=== PATIENT | male | born 1955 | race Caucasian/White ===

== ENCOUNTER 2017-08-03 22:42 | Emergency (ER) | payer BC ==
[~2017-08-03] VITALS: Ht 180.3 cm; Wt 78.0 kg
[~2017-08-03 22:42] MED LIST: CLC100X PO; OXYC1TAB3 PO
[2017-08-03 22:48] VITALS: Ht 180.3 cm; Wt 78.0 kg
[2017-08-03] MEDS ORDERED: SODIUM CHLORIDE 0.9% 1000ML 1,000 ML IV STA (23:03)
[2017-08-03] MEDS ORDERED: ONDANSETRON INJ 2 MG/ML 2 ML VIAL IV STA (23:03)
[2017-08-03 23:29] LABS: BASO % 0.4 %; BASO ABS # 0.02 K/uL (0-0.2); HEMATOCRIT 45.6 % (42-52); HEMOGLOBIN 16.4 g/dL (14.0-18.0); IG# 0.01 K/uL (0.00-0.02); MEAN CELL VOLUME 85.6 fL (80-100); MEAN CORPUSCULAR HEMOGLOBIN 30.8 pg (25-34); MEAN PLATELET VOLUME 9.5 fL (7.4-10.4); MONO % 12.4 %; MONO ABS # 0.65 K/uL (0.11-0.59); NEUT ABS # 3.47 K/uL (1.4-6.5); PLATELET COUNT 113 K/uL (130-400); RED CELL DISTRIBUTION WIDTH CV 13.4 % (11.5-14.5); RED CELL DISTRIBUTION WIDTH SD 41.9 fL (36.4-46.3); WHITE BLOOD COUNT 5.25 K/uL (4.8-10.8)
[2017-08-03 23:38] VITALS: O2SAT 93
[2017-08-03 23:47] LABS: ALBUMIN 3.6 gm/dl (3.4-5.0); CALCIUM 8.2 mg/dl (8.5-10.1); CREATININE 0.93 mg/dl (0.60-1.40); POTASSIUM 3.5 mmol/L (3.5-5.1)
[2017-08-03 23:58] LABS: TOTAL PROTEIN 7.5 gm/dl (6.4-8.2)
[2017-08-04 00:21] LABS: INFLUENZA B ANTIGEN Neg for Influ B (NEG)
--- NOTE | 2017-08-04 00:51 | EMERGENCY ROOM VISIT NOTE ---
History Report prepared by Amber: Leon Correia Under the Supervision of: Dr. Aquiles Valdovinos M.D. First contact with patient: 22:55 Chief Complaint: GI ASSESSMENT Stated Complaint: HEAD COLD, COUGH, VOMITING Nursing Triage Summary: pt c/o sinus congestion and drainage since Wednesday. also since Wednesday not able to keep anything down. pt reports he has watery black diarrhea. pt states "I'v had black diarrhea for 3 years, i have internal bleeding from somewhere". pt pulled down his pants to show RN a stool stain in his underwear, states 'this is nothing compared to how it was on Wednesday". requested pt to provide stool sample and pt states "that's not going to happen, i already went earlier today". pt also states he has not had anything to eat since Wednesday because "I can't keep it down and I don't want to try". History of Present Illness The patient is a 62 year old male who presents to the Emergency Room with complaints of worsening chest congestion beginning five days ago. The patient states he has also been experiencing a cough and nausea. He reports he cannot eat or drink anything because it causes his stomach to "growl", and he has not eaten anything in 6 days. The patient notes he has had diarrhea and black stool for a few years, and he has not had a scope performed. He was prescribed but stopped his acid reducing medication for his stomach. He did state he came to the ED tonight because he is tired of soiling his pants daily, and he did not know if the congestion and cough were related to his diarrhea and black stools. The patient reports he has tried Pepto Bismol for the past few weeks, and it has not helped. He notes a history of two hernias in his stomach. The patient states he was evaluated by [facility] in the past for similar issues and was prescribed the acid reducing medication. Pt denies LOC, headache, fevers, chills, diaphoresis, visual changes, neck pain, back pain, hematochezia, urinary symptoms, numbness, weakness, lymphadenopathy, rash, or other complaints. Source of History: patient Onset: five days ago Position: chest Quality: other (congestion) Timing: worsening Associated Symptoms: + cough, + nausea, + diarrhea Note: Associated symptoms: black stool, stomach "growling" when he eats or drinks Review of Systems See HPI for pertinent positives and negatives. A total of ten systems were reviewed and were otherwise negative. Past Medical & Surgical Surgical Problems: (1) S/P hernia repair Family History Patient reports no known family medical history. Social History Smoking Status: Current Every Day Smoker Alcohol Use: none Drug Use: none Occupation Status: employed Current/Historical Medications Scheduled Omeprazole (Prilosec), 40 MG PO DAILY Ondasetron Odt (Zofran Odt), 4 MG SL Q6H Allergies Coded Allergies: Codeine (Verified Allergy, Mild, RASH, 08/04/17) Itching. Penicillins (Verified Allergy, Unknown, UNKNOWN, 08/04/17) Physical Exam Vital Signs Date Time Temp Pulse Resp B/P (MAP) Pulse Ox O2 Delivery O2 Flow Rate FiO2 08/04/17 01:30 36.8 95 19 102/68 94 08/03/17 23:51 97 20 117/76 93 Room Air 08/03/17 23:41 109 08/03/17 23:38 93 Room Air 08/03/17 22:48 37.6 114 20 139/72 93 Room Air Physical Exam GENERAL: Awake, alert, well-appearing, in no distress HENT: Normocephalic, atraumatic. Oropharynx unremarkable. EYES: Normal conjunctiva. Sclera non-icteric. NECK: Supple. No nuchal rigidity. FROM. No masses. RESPIRATORY: Clear to auscultation. No wheezes. No rales. Normal respiratory effort. CARDIAC: Tachycardic rate. Normal rhythm. No murmurs. No rubs. Extremities warm and well perfused. Pulses equal. No JVD. GI: Soft, non-distended. No tenderness to palpation. No rebound or guarding. No masses. RECTAL: Deferred. MUSCULOSKELETAL: Atraumatic. Chest examination reveals no tenderness. The back is symmetrical on inspection without obvious abnormality. There is no CVA tenderness to palpation. No joint edema. LOWER EXTREMITIES: Calves are equal size bilaterally and non-tender. No edema. No discoloration. NEURO: Normal sensorium. No sensory or motor deficits noted. SKIN: No rash or jaundice noted. Medical Decision & Procedures ER Provider Diagnostic Interpretation: X-ray: Per my interpretation: Chest x-ray. Findings: A chest x-ray was performed and revealed no pneumothorax , effusion, infiltrate, pulmonary edema, free air under the diaphragm, or wide mediastinum. Laboratory Results 08/03/17 23:19 Red Blood Count 5.33, Mean Corpuscular Volume 85.6, Mean Corpuscular Hemoglobin 30.8, Mean Corpuscular Hemoglobin Concent 36.0, Mean Platelet Volume 9.5, Neutrophils (%) (Auto) 66.0, Lymphocytes (%) (Auto) 21.0, Monocytes (%) (Auto) 12.4, Eosinophils (%) (Auto) 0.0, Basophils (%) (Auto) 0.4, Neutrophils # (Auto ) 3.47, Lymphocytes # (Auto) 1.10, Monocytes # (Auto) 0.65, Eosinophils # (Auto ) 0.00, Basophils # (Auto) 0.02 08/03/17 23:19 Test 08/03/17 23:19 08/03/17 23:44 08/04/17 00:35 White Blood Count 5.25 K/uL (4.8-10.8) Red Blood Count 5.33 M/uL (4.7-6.1) Hemoglobin 16.4 g/dL (14.0-18.0) Hematocrit 45.6 % (42-52) Mean Corpuscular Volume 85.6 fL (80-100) Mean Corpuscular Hemoglobin 30.8 pg (25-34) Mean Corpuscular Hemoglobin Concent 36.0 g/dl (32-36) Platelet Count 113 K/uL (130-400) Mean Platelet Volume 9.5 fL (7.4-10.4) Neutrophils (%) (Auto) 66.0 % Lymphocytes (%) (Auto) 21.0 % Monocytes (%) (Auto) 12.4 % Eosinophils (%) (Auto) 0.0 % Basophils (%) (Auto) 0.4 % Neutrophils # (Auto) 3.47 K/uL (1.4-6.5) Lymphocytes # (Auto) 1.10 K/uL (1.2-3.4) Monocytes # (Auto) 0.65 K/uL (0.11-0.59) Eosinophils # (Auto) 0.00 K/uL (0-0.5) Basophils # (Auto) 0.02 K/uL (0-0.2) RDW Standard Deviation 41.9 fL (36.4-46.3) RDW Coefficient of Variation 13.4 % (11.5-14.5) Immature Granulocyte % (Auto) 0.2 % Immature Granulocyte # (Auto) 0.01 K/uL (0.00-0.02) Anion Gap 8.0 mmol/L (3-11) Est Creatinine Clear Calc Drug Dose 89.9 ml/min Estimated GFR () 103.1 Estimated GFR (Non- 88.9 BUN/Creatinine Ratio 16.3 (10-20) Calcium Level 8.2 mg/dl (8.5-10.1) Magnesium Level 2.1 mg/dl (1.8-2.4) Total Bilirubin 0.3 mg/dl (0.2-1) Direct Bilirubin 0.1 mg/dl (0-0.2) Aspartate Amino Transf (AST/SGOT) 36 U/L (15-37) Alanine Aminotransferase (ALT/SGPT) 32 U/L (12-78) Alkaline Phosphatase 71 U/L (45-117) Total Protein 7.5 gm/dl (6.4-8.2) Albumin 3.6 gm/dl (3.4-5.0) Lipase 221 U/L (73-393) Thyroid Stimulating Hormone (TSH) 1.820 uIu/ml (0.300-4.500) Influenza Type A Antigen Neg for Influ A (NEG) Influenza Type B Antigen Neg for Influ B (NEG) Urine Color DK YELLOW Urine Appearance CLEAR (CLEAR) Urine pH 5.0 (4.5-7.5) Urine Specific [place] 1.020 (1.000-1.030) Urine Protein NEG (NEG) Urine Glucose (UA) NEG (NEG) Urine Ketones 1+ (NEG) Urine Occult Blood NEG (NEG) Urine Nitrite NEG (NEG) Urine Bilirubin NEG (NEG) Urine Urobilinogen NEG (NEG) Urine Leukocyte Esterase NEG (NEG) Laboratory results reviewed by me Medications Administered Medications (Trade) Dose Ordered Sig/Kong Route Start Time Stop Time Status Last Admin Dose Admin Sodium Chloride 1,000 ml @ 999 mls/hr Q1H1M STAT IV 08/03/17 23:03 08/04/17 00:03 DC 08/03/17 23:46 999 MLS/HR Ondansetron HCl (Zofran Inj) 4 mg NOW STAT IV 4/17/18 23:03 08/03/17 23:05 DC 08/03/17 23:44 4 MG Ondansetron HCl (ZOFRAN ODT 4MG Home Pack) 1 homepack UD ONCE PO 08/04/17 01:15 08/04/17 01:16 DC 08/04/17 01:27 1 HOMEPACK Pantoprazole Sodium (Protonix Tab) 40 mg NOW STAT PO 08/04/17 01:07 08/04/17 01:09 DC 08/04/17 01:26 40 MG ECG Per My Interpretation Indication: abdominal pain Rate (beats per minute): 104 Rhythm: sinus tachycardia Findings: RBBB (incomplete), no acute ischemic change, no ectopy ED Course 2301: The patient was evaluated in room B06. A complete history and physical exam was performed. 2303: Ordered Ondansetron HCl 4mg IV, Sodium Chloride 1000 ml @ 999 mls/hr IV 0107: Ordered Protonix Tab 40mg PO 0109: I reevaluated the patient. Discussed results and discharge instructions: he verbalized understanding and agreement. The patient is ready for discharge when he receives his medication. 0115: Ordered Ondansetron 1 homepack PO Medical Decision Triage Nursing notes reviewed and agree them. The patient's history was concerning for nausea, vomiting, diarrhea, and abdominal pain. Differential diagnosis: Etiologies such as gastroenteritis, food borne illness, infections, appendicitis , diverticulitis, inflammatory bowel disease, GI bleed, biliary pathology, influenza as well as others were entertained. Physical examination findings: As above. Benign abdomen. Mild tachycardia. ER treatment provided: IV hydration 1 l NSS. IV Zofran On reassessment the patient felt better. Patient was tolerating p.o. intake. Diagnostics interpretation by me: ECG: Normal except for mild tachycardic rate. The labs revealed an unremarkable CBC and chemistry panel. The patient has a normal hemoglobin. No leukocytosis. LFTs and lipase negative. Influenza testing negative. Imaging studies: Chest x-ray as above. The patient has not been following up with the primary care physician. He has seen [facility] in the past but not recently. He was prescribed medication but states he is not taking it. He is hemodynamically stable. He was hydrated and is doing well. He has no abdominal tenderness. He was unable to provide a stool specimen. He notes his symptoms have been going on for 3 years. The patient does not have any abnormalities on his chest x-ray. I discussed symptomatic treatment and reinitiating his acid reducing medication. I would start him on Prilosec. He will use Zofran as needed. The patient was very concerned about having a work note so that he could schedule his follow-up appointments. He was provided with 1. He will contact the [facility] for GI as well as primary care follow-up. If he worsens in any way he will come back to the emergency department for further evaluation. CT imaging was felt to be unnecessary at this time. By the evaluation outlined above other emergent etiologies such as those listed in the differential, as well as others, were deemed relatively unlikely. The patient was educated about the findings as listed above. All questions were answered and the patient was pleased with the treatment. Return instructions were outlined and the patient was discharged in stable condition. Medication Reconcilliation Current Medication List: was personally reviewed by me Blood Pressure Screening Patient's blood pressure: Normal blood pressure Blood pressure disposition: Did not require urgent referral Impression Primary Impression: Diarrhea Additional Impressions: Nausea and vomiting Cough Scribe Attestation The scribe's documentation has been prepared under my direction and personally reviewed by me in its entirety. I confirm that the note above accurately reflects all work, treatment, procedures, and medical decision making performed by me. Departure Information Dispostion Home / Self-Care Prescriptions Omeprazole (PRILOSEC) 40 Mg Cap 40 MG PO DAILY, #30 CAP Prov: Aquiles Valdovinos MD 08/04/17 Ondasetron Odt (ZOFRAN ODT) 4 Mg Tab 4 MG SL Q6H for Nausea, #8 TAB Prov: Aquiles Valdovinos MD 08/04/17 Referrals Jennifer Candelaria, DO Forms HOME CARE DOCUMENTATION FORM, IMPORTANT VISIT INFORMATION Patient Instructions My [facility] Additional Instructions Prilosec 40 mg daily until directed otherwise by gastroenterology. Zofran(odansetron) tablets 4mg: Take one and allow it to dissolve in your mouth every four to six hours as needed for nausea or vomiting. Imodium: This is available [id number]. Start out with two pills then take one after each loose bowel movement. You can take a maximum of 8 in one day. Only used as needed. Stop if you have bloody stools. Acetaminophen(Tylenol) may be used for fever or pain. Use 1000mg every six hours as needed. Avoid using more than 4000mg in a 24 hour period. Rest and drink plenty of fluids as tolerated. Slow sips of water or sports drinks are recommended instead of large amounts all at once. Continue current medications. Once your stomach is settled start with a clear liquid diet (jello, soup broth, etc.) and then advance as tolerated. You should avoid full, heavy meals for about 24 hrs from the time your symptoms resolved. Return to the ER for persistent vomiting, fevers, abdominal pain, chest pains, difficulty breathing, black or bloody stools, worsening of your condition, or as needed. Follow-up with [facility] gastroenterology for a recheck. Call the office tomorrow. The number is listed below under Dr. Candelaria. Call the [facility] at [phone] to arrange for a family doctor follow up tell them you were in the ER and we referred you. Problem Qualifiers
[2017-08-04] MEDS ORDERED: PANTOprazole SOD 40 MG TAB PO STA (01:07)
[2017-08-04] MEDS ORDERED: OMEP40CA41 PO (01:12)
[2017-08-04] MEDS ORDERED: ONDA4TAB10 SL (01:12)
[2017-08-04] MEDS ORDERED: ONDANSETRON HOME PACK 4MG OD TAB PO ONE (01:15)
[2017-08-04 01:30] VITALS: BP 102/68; PULSE 95; TEMP 36.8; O2SAT 94
--- NOTE | 2017-08-04 07:01 | DIAGNOSTIC IMAGING REPORT ---
CHEST ONE VIEW PORTABLE CLINICAL HISTORY: EVALUATE WEAKNESS mental status change COMPARISON STUDY: 12/02/2012 FINDINGS: The bones soft tissues and hemidiaphragms are normal. The cardiomediastinal silhouette is normal. The lungs are clear. The pulmonary vasculature is normal. IMPRESSION: Negative chest. The above report was generated using voice recognition software. It may contain grammatical, syntax or spelling errors. Electronically signed by: Bradley Cardenas M.D. 08/04/2017 7:00 AM Dictated Date/Time: 08/04/2017 6:59 AM
== END 2017-08-04 01:32 | disposition home or self-care (01) ==
LOC: C.EDB 22:44
DX: R19.7 Diarrhea, unspecified (principal); R11.2 Nausea with vomiting, unspecified; R05 Cough; R00.0 Tachycardia, unspecified; F17.200 Nicotine dependence, unspecified, uncomplicated; Z88.6 Allergy status to analgesic agent; Z88.0 Allergy status to penicillin

== ENCOUNTER 2024-07-26 10:15 | Inpatient (IN) ==
[2024-07-26] MEDS: SODIUM CHLORIDE 0.9% 1,000 ML IV SCH ×2 (10:20→16:11)
[2024-07-26] MEDS: ADENOSINE IV SOLN 3 MG/ML 2 ML VIAL IV STA ×2 (10:25→10:27)
[2024-07-26] MEDS: dilTIAZem HCl 5 MG/ML 5 ML VIAL IV STA ×2 (10:31→12:48)
--- NOTE | 2024-07-26 10:49 | Procedure Note ---
Procedure Note Date of Service July 26, 2024 Coding
--- NOTE | 2024-07-26 10:52 | Emergency Department Note ---
History of Present Illness General Chief complaint: Tachycardia Stated complaint: SVT, TACHYPNEA Time Seen by Provider: 07/26/24 10:17 Source: patient and EMS Mode of arrival: EMS Limitations: altered mental status History of Present Illness Patient is a 69-year-old male with stage IV lung cancer who presents for worsening shortness of breath and tachycardia. Per EMS patient was in SVT with heart rate in the 200s and respiratory rate in the 40s. Recently diagnosed with pneumonia 10 days ago. He has not been eating or drinking well for the last 10 days. First took his antibiotic yesterday. Last chemotherapy session was 6 days prior. History is limited from patient due to acute distress. Home Medications Medication Instructions Recorded Confirmed Type naproxen 500 mg tablet 500 mg PO BID PRN pain #14 tabs 05/26/24 07/26/24 Rx albuterol sulfate 90 mcg/actuation 2 puff inhalation Q4H PRN Wheezing 07/03/24 07/26/24 History aerosol inhaler fluticasone 250 mcg-salmeterol 50 1 inh inhalation BID 07/03/24 07/26/24 History mcg/dose blistr powdr for inhalation dexamethasone 4 mg tablet 4 mg PO .as directed 07/11/24 07/26/24 History folic acid 1 mg tablet 1 mg PO DAILY 07/11/24 07/26/24 History lorazepam 0.5 mg tablet 0.5 mg PO Q8H PRN Anxiety 07/11/24 07/26/24 History morphine 15 mg immediate release 15 mg PO BID PRN Pain 07/11/24 07/26/24 History tablet ondansetron HCl 8 mg tablet 8 mg PO Q8H PRN NAUSEA/VOMITING 07/11/24 07/26/24 History oxycodone 5 mg tablet 5 mg PO Q4H PRN Severe Pain (Scale 07/11/24 07/26/24 History Score 7-10) prochlorperazine maleate 10 mg 10 mg PO Q6H PRN NAUSEA/VOMITING 07/11/24 07/26/24 History tablet (Compazine) cefdinir 300 mg capsule 300 mg PO BID 10 days #20 caps 07/18/24 07/26/24 Rx fluconazole 100 mg tablet 100 mg PO QAM 07/25/24 07/26/24 History Allergies Allergy/AdvReac Type Severity Reaction Status Date / Time codeine Allergy Mild Itching Verified 07/25/24 02:01 doxycycline AdvReac Intermediate NAUSEA/VOMI Verified 07/25/24 01:56 TING Past Med/Surg History Problem List (Updated 07/26/24 @ 13:35 by Marco Antonio Ladd MD) Supraventricular tachycardia (Acute) Generalized weakness (Acute) Chemotherapy-induced nausea (Acute) Oral thrush (Acute) Pneumonia (Acute) Malignant neoplasm of right lung stage 4 (Chronic 06/22/24) Medical History Femur fracture, left In past Benign neoplasm of colon Arthritis COPD (chronic obstructive pulmonary disease) Anxiety Lung cancer, primary, with metastasis from lung to other site Lung cancer Chronic back pain Surgical History History of surgery Both lower legs; H/O inguinal hernia repair H/O colonoscopy S/P bronchoscopy with biopsy EBUS on 06/22/24 Family History Father , 95yo Pacemaker Hypertension Diabetes Colorectal cancer Mother , 58yo Lung cancer Brother Medical history unknown Sister Cancer Pt uncertain of type Sister Cancer Pt uncertain of type of cancer Sister Cancer Pt uncertain of type of cancer Sister Drowning Social History Smoking Status: Former smoker Tobacco Type: Cigarettes Cigarettes Per Day: 1 PPD x 53 yrs; Second Hand Exposure: No; Do You Dip or Chew Tobacco: No; Hx Alcohol Use: No Hx Substance Use: Yes (Did smoke it daily but not in past year) Prescribed Medications: Marijuana Preferred Language: Thai Communication Ability: Effective Beliefs That Will Affect Care: None marital status: Single Current Living Situation: Alone current occupational status: 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 Physical Exam Vital Signs Vital Signs - 24 hr 07/26/24 10:17 07/26/24 10:17 07/26/24 10:24 Temperature 36.6 C Temperature Source Oral Pulse Rate 203 H Pulse Rate [Right Finger] 204 H Pulse Rate from SpO2 Sensor Respiratory Rate 40 H Respiratory Effort / Characteristics Accessory Muscle Use Labored Short of Breath Accessory Muscle Use Labored Short of Breath Respiratory Depth Shallow Respiratory Pattern Tachypnea Tachypnea Blood Pressure Blood Pressure [Right Arm] 102/85 Blood Pressure Mean Blood Pressure Mean [Right Arm] 90 Pulse Oximetry 94 Oxygen Delivery Method Room Air Room Air Oxygen Flow Rate Sepsis Recent Fever Within 48 Hours Sepsis New/Unexplained Change in Mental Status Sepsis Action Taken by Nursing 07/26/24 10:27 07/26/24 10:37 07/26/24 10:37 Temperature Temperature Source Pulse Rate 0 L Pulse Rate [Right Finger] 190 H Pulse Rate from SpO2 Sensor 141 H Respiratory Rate 38 H 30 H Respiratory Effort / Characteristics Respiratory Depth Respiratory Pattern Blood Pressure 113/87 Blood Pressure [Right Arm] 113/92 Blood Pressure Mean 95 Blood Pressure Mean [Right Arm] 99 Pulse Oximetry 78 L 90 Oxygen Delivery Method Room Air Oxygen Flow Rate Sepsis Recent Fever Within 48 Hours No Sepsis New/Unexplained Change in Mental Status No Sepsis Action Taken by Nursing No Action Required 07/26/24 10:42 07/26/24 10:43 07/26/24 10:45 Temperature Temperature Source Pulse Rate 125 H 126 H Pulse Rate [Right Finger] 123 H Pulse Rate from SpO2 Sensor 208 H Respiratory Rate 30 H 30 H Respiratory Effort / Characteristics Respiratory Depth Respiratory Pattern Blood Pressure 116/91 Blood Pressure [Right Arm] 105/69 Blood Pressure Mean 99 Blood Pressure Mean [Right Arm] 81 Pulse Oximetry 97 Oxygen Delivery Method Oxymask Oxygen Flow Rate 3 Sepsis Recent Fever Within 48 Hours Sepsis New/Unexplained Change in Mental Status Sepsis Action Taken by Nursing 07/26/24 10:51 07/26/24 10:54 07/26/24 11:00 Temperature Temperature Source Pulse Rate 124 H 124 H Pulse Rate [Right Finger] 129 H Pulse Rate from SpO2 Sensor 116 H 122 H Respiratory Rate 32 H 34 H 32 H Respiratory Effort / Characteristics Respiratory Depth Respiratory Pattern Blood Pressure 115/75 104/79 Blood Pressure [Right Arm] 101/80 Blood Pressure Mean 88 87 Blood Pressure Mean [Right Arm] 87 Pulse Oximetry 90 97 88 L Oxygen Delivery Method Room Air Room Air Nasal Cannula Oxygen Flow Rate 2 Sepsis Recent Fever Within 48 Hours Sepsis New/Unexplained Change in Mental Status Sepsis Action Taken by Nursing 07/26/24 11:00 07/26/24 11:03 07/26/24 11:06 Temperature Temperature Source Pulse Rate 127 H 124 H 127 H Pulse Rate [Right Finger] Pulse Rate from SpO2 Sensor 124 H 96 H 116 H Respiratory Rate 33 H 30 H 33 H Respiratory Effort / Characteristics Respiratory Depth Respiratory Pattern Blood Pressure 101/80 101/80 110/59 L Blood Pressure [Right Arm] Blood Pressure Mean 87 87 76 Blood Pressure Mean [Right Arm] Pulse Oximetry 89 L 90 88 L Oxygen Delivery Method Room Air Room Air Room Air Oxygen Flow Rate Sepsis Recent Fever Within 48 Hours Sepsis New/Unexplained Change in Mental Status Sepsis Action Taken by Nursing 07/26/24 11:10 07/26/24 11:15 07/26/24 11:39 Temperature Temperature Source Pulse Rate 119 H 115 H Pulse Rate [Right Finger] 124 H Pulse Rate from SpO2 Sensor 123 H 115 H Respiratory Rate 32 H 32 H 26 H Respiratory Effort / Characteristics Respiratory Depth Respiratory Pattern Blood Pressure 115/72 102/72 Blood Pressure [Right Arm] 110/59 L Blood Pressure Mean 86 82 Blood Pressure Mean [Right Arm] 76 Pulse Oximetry 88 L 91 95 Oxygen Delivery Method Nasal Cannula Nasal Cannula Nasal Cannula Oxygen Flow Rate 2 2 4 Sepsis Recent Fever Within 48 Hours Sepsis New/Unexplained Change in Mental Status Sepsis Action Taken by Nursing 07/26/24 11:45 Temperature Temperature Source Pulse Rate 117 H Pulse Rate [Right Finger] Pulse Rate from SpO2 Sensor 110 H Respiratory Rate 25 H Respiratory Effort / Characteristics Respiratory Depth Respiratory Pattern Blood Pressure 111/83 Blood Pressure [Right Arm] Blood Pressure Mean 92 Blood Pressure Mean [Right Arm] Pulse Oximetry 96 Oxygen Delivery Method Nasal Cannula Oxygen Flow Rate 4 Sepsis Recent Fever Within 48 Hours Sepsis New/Unexplained Change in Mental Status Sepsis Action Taken by Nursing See below Constitutional WD/WN, vitals as above Respiratory + respiratory distress, + labored breathing and + uses accessory muscles Auscultation: + rales Cardiovascular Rate/Rhythm: + tachycardic Heart Sounds: + murmur Extremities: no pedal edema and no edema Skin Skin is cool and clammy Course Course Indication: unstable arrhythmia Consent was not obtained due to emergent situation. At this time, the risks of the procedure are less than the risks of NOT performing the procedure. A time out was taken and the correct patient and procedure identified. The patient was on 100% via NC. Suction, airway equipment, medications, respiratory equipment, ACLS cart, and appropriate personnel were prepared prior to the initiation of the procedure. No sedation required due to the decreased LOC of the patient and emergent nature of the situation. The biphasic defibrillator was set to 200 joules of energy and synched. After confirmation of sedation and "all clear" safety check the synchronized shock was delivered. This resulted in successful conversion of the dysrhythmia back into sinus rhythm. See nursing notes for dosages and times. There were no complications and the patient recovered uneventfully from the procedure. Administered Medications Vancomycin HCl 1,500 mg/ (Sodium Chloride) 530 mls @ 200 mls/hr IV NOW ONE Stop: 07/26/24 13:46 Last Admin: 07/26/24 12:12 Dose: 200 mls/hr Documented By: CANDY Diltiazem HCl 125 mg/ Dextrose 125 mls @ 5 mls/hr IV .Q24H [facility]; Protocol Stop: 08/25/24 12:29 Last Admin: 07/26/24 12:47 Dose: 5 mg/hr, 5 mls/hr Documented By: CANDY Co-signed By: MARLEE Discontinued Medications Adenosine (Adenosine Iv Soln 3 Mg/Ml 2 Ml Vial) Confirm Administered Dose 18 mg IV .STK-MED ONE Stop: 07/26/24 10:23 Last Admin: 07/26/24 10:53 Dose: Not Given Documented By: MR Adenosine (Adenosine Iv Soln 3 Mg/Ml 2 Ml Vial) 6 mg IV NOW STA Stop: 07/26/24 10:36 Last Admin: 07/26/24 10:25 Dose: 6 mg Documented By: MR Adenosine (Adenosine Iv Soln 3 Mg/Ml 2 Ml Vial) 12 mg IV NOW STA Stop: 07/26/24 10:36 Last Admin: 07/26/24 10:27 Dose: 12 mg Documented By: MR Diltiazem HCl (Diltiazem Hcl 5 Mg/Ml 5 Ml Vial) Confirm Administered Dose 25 mg IV .STK-MED ONE Stop: 07/26/24 10:31 Last Admin: 07/26/24 10:53 Dose: Not Given Documented By: MR Diltiazem HCl (Diltiazem Hcl 5 Mg/Ml 5 Ml Vial) 20 mg IV NOW STA Stop: 07/26/24 10:36 Last Admin: 07/26/24 10:31 Dose: 20 mg Documented By: Co-signed By: MNE Diltiazem HCl (Diltiazem Hcl 5 Mg/Ml 5 Ml Vial) 25 mg IV NOW STA Stop: 07/26/24 12:28 Last Admin: 07/26/24 12:48 Dose: 25 mg Documented By: CANDY Co-signed By: MARLEE Diltiazem HCl 125 mg/ Dextrose 125 mls @ 5 mls/hr IV .Q24H [facility]; Protocol Stop: 08/25/24 10:44 Last Admin: 07/26/24 11:05 Dose: 5 mg/hr, 5 mls/hr Documented By: CANDY Co-signed By: Sodium Chloride (Nss) 1,000 mls @ 999 mls/hr IV .Q1H1M [facility] Stop: 07/26/24 12:45 Last Admin: 07/26/24 11:04 Dose: 999 mls/hr Documented By: Infusion: 07/26/24 11:04 Dose: Infused Documented By: Admin: 07/26/24 10:20 Dose: 999 mls/hr Documented By: Cefepime HCl (Maxipime 2000mg) 2,000 mg in 20 mls @ 5 mls/min IV NOW STA; Protocol Stop: 07/26/24 11:11 Last Admin: 07/26/24 11:32 Dose: 5 mls/min Documented By: CANDY Ioversol (Optiray 320 125ml) 64 ml IV ONCE ONE Stop: 07/26/24 12:04 Last Admin: 07/26/24 12:05 Dose: 64 ml Documented By: HAYDEN Robersonaneous (Stat Iv Infusion Titration Per Protocol) 1 each N/A NOW STA Stop: 07/26/24 10:36 Last Admin: 07/26/24 11:05 Dose: 1 each Documented By: CANDY Miscellaneous (Stat Iv Infusion Titration Per Protocol) 1 each N/A NOW STA Stop: 07/26/24 12:28 Last Admin: 07/26/24 12:48 Dose: Not Given Documented By: CANDY Critical Care Time Critical Care Time: Yes Total Critical Care Time: 45 Medical Decision Making Differential Diagnosis postobstructive pneumonia, PE, sepsis, SVT, a flutter with 2-1 conduction Medical Records Attestation: I reviewed the patient's medical records. Home Medications Current Medication List: was personally reviewed by me Laboratory Data Attestation: I reviewed the patient's lab results. 07/26/24 10:52 07/26/24 10:52 Lab Results 07/26/24 07/26/24 07/26/24 Range/Units 10:52 11:21 13:00 WBC 2.69 L (4.8-10.8) K/ul RBC 3.57 L (4.70-6.10) M/uL Hgb 9.7 L (14.0-18.0) g/dl Hct 29.4 L (42.0-52.0) % MCV 82.4 (80.0-100.0) fL MCH 27.2 (25.0-34.0) pg MCHC 33.0 (32.0-36.0) g/dL RDW Std Deviation 43.2 (36.4-46.3) fL RDW Coeff of [place] 14.6 H (11.5-14.5) % Plt Count 155 (130-400) K/uL MPV 10.7 (9.4-12.4) fL Immature Gran % (Auto) 10.0 % Neut % (Auto) 71.5 % Lymph % (Auto) 16.7 % [place] % (Auto) 0.7 % Eos % (Auto) 0.4 % Baso % (Auto) 0.7 % Neut # (Auto) 1.92 (1.40-6.50) K/uL Lymph # (Auto) 0.45 L (1.20-3.40) K/uL [place] # (Auto) 0.02 L (0.11-0.59) K/uL Eos # (Auto) 0.01 (0.00-0.50) K/uL Baso # (Auto) 0.02 (0.00-0.20) K/uL Immature Gran # (Auto) 0.27 H (0.01-0.20) K/uL Platelet Estimate Normal (Normal) VBG pH 7.35 L (7.36-7.41) VBG pCO2 52 H (38-50) mmHg VBG pO2 20 mmHg VBG HCO3 29 mmol/L VBG O2 Saturation < 60.0 % VBG Base Excess 2.1 mEq/L Sodium 134 L (136-145) mmol/L Potassium 4.3 (3.5-5.1) mmol/L Chloride 96 L (98-107) mmol/L Carbon Dioxide 30 (21-32) mmol/L Anion Gap 8 (3-11) BUN 21 (6-23) mg/dl Creatinine 0.59 L (0.6-1.4) mg/dl Est Cr Clr Drug Dosing 125.4 ml/min eGFR 106.34 BUN/Creatinine Ratio 35.6 H (10-20) Glucose 171 H (70-99(Fasting)) mg/dl Lactate 3.0 H* 1.9 (0.4-2.0) mmol/L Calcium 7.1 L (8.6-10.3) mg/dl Magnesium 2.2 (1.7-2.4) mg/dl Total Bilirubin 0.7 (0.2-1.0) mg/dl Direct Bilirubin 0.1 (0-0.2) mg/dl AST 20 (13-39) U/L ALT 16 (7-52) U/L Alkaline Phosphatase 162 H (34-104) U/L Troponin I High Sens 8.0 D (0-20) pg/ml Total Protein 5.7 L (6.0-8.3) gm/dl Albumin 2.5 L (3.4-5.0) gm/dl Procalcitonin 0.65 H (0-0.5) ng/ml Imaging Data Attestation: I personally reviewed and interpreted this imaging study as follows: My Impression: Right lower lobe pneumonia noted Radiologist's Impression: Chest X-Ray 07/26/24 10:37 XR chest 1V portable CLINICAL HISTORY: Sepsis COMPARISON STUDY: 07/25/2024 FINDINGS: Single view portable chest demonstrates no significant interval change. Continues to be pronounced airspace opacity in the right lung associated with left costophrenic angle blunting and thickening of the minor fissure indicating probable exudative effusion. The left lung is grossly clear. Heart size and pulmonary vascularity are unremarkable. There is no pneumothorax. IMPRESSION: No interval improvement in the right lung infiltrate consistent with pneumonia. Slightly enlarging right pleural effusion. ACT 112: Negative or not required by law. Electronically signed by: Siomara Sofia M.D. 07/26/2024 11:32 AM Chest CTA 07/26/24 10:53 CT angio chest PE protocol CT DOSE: 756.16 mGy.cm HISTORY: PE. TECHNIQUE: Multiple CTA images of the chest were obtained after the intravenous administration of 60 ml Optiray. Coronal and sagittal MIPS were obtained from the axial data set and were submitted for review. All measurements were obtained according to NASCET criteria. A dose lowering technique was utilized adhering to the principles of ALARA. COMPARISON STUDY: Chest x-ray earlier today and PET CT of 06/13/2024 FINDINGS: Right hilar mass measures approximately 5 cm, grossly stable. There is increased reticular and patchy consolidation throughout the right middle lobe and a large portion of the upper to mid right lower lobe which has morphology suggesting metastatic spread of tumor with possible superimposed pneumonia. There is an increased small right pleural effusion and increased adjacent consolidation at the right lung base, pneumonia, tumor, or atelectasis. There is stable moderate emphysema. There is no pneumothorax. There is near occlusion of the right mainstem bronchus with secretions or tumor. The right hilar mass severely narrows the right main pulmonary artery. Evaluation of the tiny distal pulmonary arteries is limited. No pulmonary embolism seen. No pericardial effusion. There is an interval osseous destructive lesion posteriorly and laterally at the left ninth rib. There is an interval osseous destructive lesion laterally at the right seventh rib laterally with superimposed nondisplaced fracture. There are lucent osseous lesions at the T5 and T10 vertebral bodies. There are mild subacute-appearing vertebral body compression fractures at those levels. There is an osseous destructive lesion at the sternum. Findings are consistent with progressive osseous metastatic disease. IMPRESSION: 1. No pulmonary embolism seen. 2. Near obstruction of the right mainstem bronchus with secretions or tumor. 3. Progressive tumor at the right lung with possible superimposed pneumonia. Increased small right pleural effusion. 4. Progressive osseous metastatic disease. 5. Otherwise as described. ACT 112: Negative or not required by law. The above report was generated using voice recognition software. It may contain grammatical, syntax or spelling errors. Electronically signed by: Scott Armenta M.D. 07/26/2024 12:44 PM ECG Data Attestation: I personally reviewed and interpreted this ECG as follows: Indication: + tachycardia Rate (beats per minute): 124 Rhythm: + sinus tachycardia ECG Intervals/blocks: + Normal QRS, + Normal [place] and + Normal QT-c ECG [place]: + Normal ECG ST segments: + Nonspecific ST abnormalities Additional Comments: Prehospital EKG shows narrow complex tachycardia at a rate of 212 bpm Blood Pressure Blood Pressure Findings: Normal blood pressure MDM Narrative Patient is a 69-year-old male with history of stage IV lung cancer presenting in respiratory distress with heart rates in the 200s. Initially on arrival he exhibited a narrow complex tachycardia. Blood pressure around 102/85. Patient was given a dose of 6 mg of adenosine after being placed on the AED pads. Patient did have a brief respite from the tachycardia which showed flutter waves however went up immediately back into heart rates in the 200s. He got a repeat dose of 12 mg of adenosine with same response. Patient's blood pressure became soft and decision was made to cardiovert the patient at bedside emergently. See procedure note for further details. Patient converted to sinus tachycardia after cardioversion. Workup was continued after stabilization. Patient had initial lactate greater than 3 and sepsis power plan was ordered. Broad- spectrum antibiotics including vancomycin and cefepime were ordered as well. CTA shows no evidence of PE but a worsening postobstructive pneumonia was noted. Patient remained stable on 4 L of nasal cannula however heart rate did return to the narrow complex tachycardia at a rate of 200 about an hour after cardioversion. Decision was made to give a 25 mg bolus of diltiazem and start patient on a diltiazem drip. After the 25 mg bolus patient converted to normal sinus rhythm at a rate of 98. Blood pressure remained stable. Patient remained on the diltiazem drip at 5 mg/h. Patient was given a liter of IV fluids here in the ED. No indication for 30 mL/kg IV fluids at this time due to absence of septic shock or lactate greater than 4. Will be admitted to hospitalist service for further management of postobstructive pneumonia and tachycardia. Impression & Plan Pneumonia, Supraventricular tachycardia Admit Discharge Plan Visit Data Chief Complaint: Tachycardia Stated Complaint: SVT, TACHYPNEA ED Provider: Marco Antonio Ladd Discharge Problem: Pneumonia, Supraventricular tachycardia Forms Stand Alone Forms: My [employer] Prescriptions Prescriptions: No Action dexamethasone 4 mg tablet 4 mg PO .as directed Patient Comments: Related to chemotherapy folic acid 1 mg tablet 1 mg PO DAILY lorazepam 0.5 mg tablet 0.5 mg PO Q8H PRN (Reason: Anxiety) morphine 15 mg tablet 15 mg PO BID PRN (Reason: Pain) ondansetron HCl 8 mg tablet 8 mg PO Q8H PRN (Reason: NAUSEA/VOMITING) prochlorperazine maleate [Compazine] 10 mg tablet 10 mg PO Q6H PRN (Reason: NAUSEA/VOMITING) fluticasone propion-salmeterol 250-50 mcg/dose blister with device 1 inh INHALATION BID albuterol sulfate 90 mcg/actuation HFA aerosol inhaler 2 puff INHALATION Q4H PRN (Reason: Wheezing) oxycodone 5 mg tablet 5 mg PO Q4H PRN (Reason: Severe Pain (Scale Score 7-10)) naproxen 500 mg tablet 500 mg PO BID PRN (Reason: pain) Qty: 14 0RF Rx Instructions: with food cefdinir 300 mg capsule 300 mg PO BID 10 Days Qty: 20 0RF Rx Instructions: ORDERED 07/18/24 FOR 10 DAYS. fluconazole 100 mg tablet 100 mg PO QAM Rx Instructions: ORDERED 07/24/24 FOR 14 DAYS, NOT STARTED YET Referrals Referrals: Sylvester Renee MD [Primary Care Provider] -
[2024-07-26] MEDS: dilTIAZem HCl 5 MG/ML 5 ML VIAL IV ONE (10:53)
[2024-07-26] MEDS: ADENOSINE IV SOLN 3 MG/ML 2 ML VIAL IV ONE (10:53)
[2024-07-26] MEDS: dilTIAZem HCL 125 MG in DEXTROSE 5% 100 ML IV SCH ×2 (11:05→12:47)
[2024-07-26] MEDS: STAT IV Infusion **Titration per Protocol STA ×2 (11:05→12:48)
[2024-07-26] MEDS ORDERED: VANCOMYCIN CONSULT ACTIVE PRN (11:08)
[2024-07-26] MEDS: CEFEPIME 2000MG 2,000 MG/20 ML SYR IV STA (11:32)
[2024-07-26 11:34] LABS: Base Excess VBG 2.1 mEq/L; HCO3 VBG 29 mmol/L; Oxygen Saturation VBG < 60.0 %; PCO2 VBG 52 mmHg (38-50); PO2 VBG 20 mmHg; pH VBG 7.35 (7.36-7.41)
--- NOTE | 2024-07-26 11:34 | XRay Report ---
XR chest 1V portable CLINICAL HISTORY: Sepsis COMPARISON STUDY: 07/25/2024 FINDINGS: Single view portable chest demonstrates no significant interval change. Continues to be pro nounced airspace opacity in the right lung associated with left costophrenic angle blunting and thick ening of the minor fissure indicating probable exudative effusion. The left lung is grossly clear. He art size and pulmonary vascularity are unremarkable. There is no pneumothorax. IMPRESSION: No interval improvement in the right lung infiltrate consistent with pneumonia. Slightly enlarging right pleural effusion. ACT 112: Negative or not required by law. Electronically signed by: Siomara Sofia M.D. 07/26/2024 11:32 AM
[2024-07-26 11:35] LABS: Albumin Level 2.5 gm/dl (3.4-5.0); BUN Creatinine Ratio 35.6 (10-20); Bilirubin Direct 0.1 mg/dl (0-0.2); Bilirubin,Total 0.7 mg/dl (0.2-1.0); Calcium 7.1 mg/dl (8.6-10.3); Creatinine Clr Calc Pharmacy 125.4 ml/min; Magnesium 2.2 mg/dl (1.7-2.4); Potassium 4.3 mmol/L (3.5-5.1); Total Protein 5.7 gm/dl (6.0-8.3)
[2024-07-26 11:47] LABS: Hematocrit (blood only) 29.4 % (42.0-52.0); Hemoglobin 9.7 g/dl (14.0-18.0); Mean Corpuscular Hemoglobin 27.2 pg (25.0-34.0); Mean Corpuscular Volume 82.4 fL (80.0-100.0); Mean Platelet Volume 10.7 fL (9.4-12.4); Platelet Count 155 K/uL (130-400); RDW Coefficient of Variation 14.6 % (11.5-14.5); RDW Standard Deviation 43.2 fL (36.4-46.3); Red Blood Count 3.57 M/uL (4.70-6.10); White Blood Count 2.69 K/ul (4.8-10.8)
[2024-07-26 11:58] LABS: Basophils # (auto) 0.02 K/uL (0.00-0.20); Basophils % (auto) 0.7 %; Eosinophils # (auto) 0.01 K/uL (0.00-0.50); Eosinophils % (auto) 0.4 %; Immature Granulocytes # (auto) 0.27 K/uL (0.01-0.20); Lymphocytes # (auto) 0.45 K/uL (1.20-3.40); Lymphocytes % (auto) 16.7 %; Monocytes # (auto) 0.02 K/uL (0.11-0.59); Monocytes % (auto) 0.7 %; Neutrophils # (auto) 1.92 K/uL (1.40-6.50); Neutrophils % (auto) 71.5 %; Platelet Estimate Normal (Normal)
[2024-07-26] MEDS: OPTIRAY 320 125ml IV ONE (12:05)
[2024-07-26] MEDS: VANCOMYCIN HCL 1,500 MG in SODIUM CHLORIDE 0.9% 500 ML IV ONE (12:12)
--- NOTE | 2024-07-26 12:45 | CT Scan Report ---
CT angio chest PE protocol CT DOSE: 756.16 mGy.cm HISTORY: PE. TECHNIQUE: Multiple CTA images of the chest were obtained after the intravenous administration of 60 ml Optiray. Coronal and sagittal MIPS were obtained from the axial data set and were submitted for Group-IBw. All measurements were obtained according to NASCET criteria. A dose lowering technique was ut ilized adhering to the principles of ALARA. COMPARISON STUDY: Chest x-ray earlier today and PET CT of 06/13/2024 FINDINGS: Right hilar mass measures approximately 5 cm, grossly stable. There is increased reticular and patchy consolidation throughout the right middle lobe and a large portion of the upper to mid rig ht lower lobe which has morphology suggesting metastatic spread of tumor with possible superimposed p neumonia. There is an increased small right pleural effusion and increased adjacent consolidation at the right lung base, pneumonia, tumor, or atelectasis. There is stable moderate emphysema. There is n o pneumothorax. There is near occlusion of the right mainstem bronchus with secretions or tumor. The right hilar mass severely narrows the right main pulmonary artery. Evaluation of the tiny distal pulm onary arteries is limited. No pulmonary embolism seen. No pericardial effusion. There is an interval osseous destructive lesion posteriorly and laterally at the left ninth rib. Ther e is an interval osseous destructive lesion laterally at the right seventh rib laterally with superim posed nondisplaced fracture. There are lucent osseous lesions at the T5 and T10 vertebral bodies. The re are mild subacute-appearing vertebral body compression fractures at those levels. There is an osse ous destructive lesion at the sternum. Findings are consistent with progressive osseous metastatic di sease. IMPRESSION: 1. No pulmonary embolism seen. 2. Near obstruction of the right mainstem bronchus with secretions or tumor. 3. Progressive tumor at the right lung with possible superimposed pneumonia. Increased small right pl eural effusion. 4. Progressive osseous metastatic disease. 5. Otherwise as described. ACT 112: Negative or not required by law. The above report was generated using voice recognition software. It may contain grammatical, syntax o r spelling errors. Electronically signed by: Scott Armenta M.D. 07/26/2024 12:44 PM
--- NOTE | 2024-07-26 13:57 | History & Physical Report ---
Date of Service July 26, 2024 Assessment & Plan (1) Narrow complex tachycardia: Plan: Rapid Atrial flutter Patient is 69 year old male with PMH anxiety, recently diagnosed non-small cell lung CA involving right hilar/perihilar mass encasing right mainstem bronchus, bone metastasis, COPD, history tobacco use presented to ER with increased SOB, CP, palpitations, dizziness since yesterday Upon ER presentation today found to have pulse 200, with narrow complex tachycardia. Initially given a dose of 6 mg of adenosine and then 2 mg of adenosine with appearance of flutter waves. HR up to 200's and patient ultimately cardioverted with subsequent sinus tachycardia after cardioversion. Patient again had narrow complex tachycardia at a rate of 200 about an hour after cardioversion and was started on diltiazem drip. Currently sinus rhythm with stable BP on diltiazem drip Monitor on telemetry Troponin: 8.0 Continue diltiazem drip Hold on anticoagulation at this time with h/o hemoptysis Cardiology consult. discussed with Dr Romero. Will plan to keep on diltiazem drip for now with consideration adding oral agent tomorrow CBC, CMP, magnesium labs in am (2) Lung cancer, primary, with metastasis from lung to other site: (3) Anxiety: (4) COPD (chronic obstructive pulmonary disease): (5) Pneumonia: (6) Pancytopenia: Plan: Post obstructive Pneumonia Per outpatient chart review: 07/13/2023 received Zometa. 07/20/24 received Alimta, carboplatin, Keytruda with plan for palliative radiation to symptomatic bone lesion 06/13/2024 PET-CT scan: hypermetabolic right paraprotein nodule SUV of 9.6. 5.4 x 4.8 cm right hilar mass narrows the distal mainstem bronchus SUV 17.5. focal subcentimeter pancreatic body mass with SUV of 8.8. Subcentimeter peripancreatic lymph node adjacent to the pancreatic head. Multiple soft tissue metastases, 1 measuring about 1 cm within the right psoas muscle with a SUV of 7.4. Multiple osseous, intramuscular and subcutaneous metastasis involving the spine, ribs, right acromial base. overall hypermetabolic right hilar mass with metastasis involving the pancreas, peripancreatic lymph node, muscle, bones. Today in ER WBC: 2.69, Hgb: 9.7, PLT: 155 Lactate: 3.0-->1.9. procalcitonin: 0.65. CTA Chest: No pulmonary embolism seen. Near obstruction of the right mainstem bronchus with secretions or tumor. Progressive tumor at the right lung with possible superimposed pneumonia. Increased small right pleural effusion. Progressive osseous metastatic disease. In ER received 2L NSS, vancomycin, cefepime MRSA swab pending Zosyn, vancomycin Gentle NSS Supplemental oxygen as needed Incentive spirometry, flutter valve formoterol, saline nebs Pulmonology consult Following with oncology, Dr Jarod Ureña. Pulmonology, Dr Hitchcock #Nausea, vomiting #Generalized Weakness Since first chemo treatment Gentle IVF Thiamine, Folic acid, multivitamin Fall precautions PT/OT eval DVT Prophylaxis SCDs for now Admit PCU Full Code as per discussion with pt Follows with Dr Renee for routine care Pt was seen and care coordinated with Dr Miller. See addendum I spent a total of 78 minutes reviewing notes, outpatient records, labs, m edication, coordinating, documenting and providing care for this patient excluding time spent in the performance of separately billed services and excluding time spent by another provider/QHP. History of Present Illness Chief Complaint: SOB Primary Care Provider: Sylvester Renee MD Patient is 69 year old male with PMH anxiety, recently diagnosed non-small cell lung CA involving right hilar/perihilar mass encasing right mainstem bronchus, bone metastasis, COPD, history tobacco use presented to ER with increased SOB since yesterday. States ongoing SOB for over 6 months but yesterday evening increased SOB and started with palpitations and sensation that he couldn't catch his breath and was having chest discomfort and dizziness. He reports ongoing hemoptysis and cough. Reports cough previously productive but recently dry with continued intermittent hemoptysis. Reports hemoptysis is at baseline since January. Has been on multiple rounds of antibiotics, with Augmentin 06/22/24 for 10 day course, Cefdinir 07/17/24 for14 day course, and doxycycline 07/18/24 for 10-day course. 07/13/2023 seen hematology clinic for Zometa. On 07/20/24 received Alimta, carboplatin, Keytruda with plan for palliative radiation to symptomatic bone lesions. Reports nausea, vomiting, decreased oral intake past week. Denies melena, hematochezia, hematuria. Feeling tired and weak. Ongoing back pain that he reports is controlled on morphine and prn oxycodone. Denies fever/chills, diaphoresis, REYNA, syncope, neck pain, CP, SOB, orthopnea, palpitations, cough, sore throat, choking, rhinorrhea, paresthesias, extremity edema, rashes, dysuria, urinary frequency. Reports previously smoking "6 packs per day" and smoking since age 14. Reports stopped smoking in January 2024. Denies ETOH or recreational drug use. Upon ER presentation today found to have pulse 200, with narrow complex tachycardia. Initially given a dose of 6 mg of adenosine and then 2 mg of adenosine with appearance of flutter waves. HR up to 200's and patient ultimately cardioverted with subsequent sinus tachycardia after cardioversion. Patient again had narrow complex tachycardia at a rate of 200 about an hour after cardioversion and was started on diltiazem drip. Currently sinus rhythm with stable BP. Allergies Allergy/AdvReac Type Severity Reaction Status Date / Time codeine Allergy Mild Itching Verified 07/25/24 02:01 doxycycline AdvReac Intermediate NAUSEA/VOMI Verified 07/25/24 01:56 TING Home Medications Medication Instructions Recorded Confirmed Type naproxen 500 mg tablet 500 mg PO BID PRN pain #14 tabs 05/26/24 07/26/24 Rx albuterol sulfate 90 mcg/actuation 2 puff inhalation Q4H PRN Wheezing 07/03/24 07/26/24 History aerosol inhaler fluticasone 250 mcg-salmeterol 50 1 inh inhalation BID 07/03/24 07/26/24 History mcg/dose blistr powdr for inhalation dexamethasone 4 mg tablet 4 mg PO .as directed 07/11/24 07/26/24 History folic acid 1 mg tablet 1 mg PO DAILY 07/11/24 07/26/24 History lorazepam 0.5 mg tablet 0.5 mg PO Q8H PRN Anxiety 07/11/24 07/26/24 History morphine 15 mg immediate release 15 mg PO BID PRN Pain 07/11/24 07/26/24 History tablet ondansetron HCl 8 mg tablet 8 mg PO Q8H PRN NAUSEA/VOMITING 07/11/24 07/26/24 History oxycodone 5 mg tablet 5 mg PO Q4H PRN Severe Pain (Scale 07/11/24 07/26/24 History Score 7-10) prochlorperazine maleate 10 mg 10 mg PO Q6H PRN NAUSEA/VOMITING 07/11/24 07/26/24 History tablet (Compazine) cefdinir 300 mg capsule 300 mg PO BID 10 days #20 caps 07/18/24 07/26/24 Rx fluconazole 100 mg tablet 100 mg PO QAM 07/25/24 07/26/24 History docusate sodium 100 mg capsule 100 mg PO BID PRN Constipation 07/26/24 07/26/24 History Past Med/Surg History Problem List (Updated 07/26/24 @ 14:57 by Ondina Hamilton PA-C) Pancytopenia Narrow complex tachycardia Supraventricular tachycardia (Acute) Generalized weakness (Acute) Chemotherapy-induced nausea (Acute) Oral thrush (Acute) Pneumonia (Acute) Malignant neoplasm of right lung stage 4 (Chronic 06/22/24) Medical History Femur fracture, left In past Benign neoplasm of colon Arthritis COPD (chronic obstructive pulmonary disease) Anxiety Lung cancer, primary, with metastasis from lung to other site Lung cancer Chronic back pain Surgical History History of surgery Both lower legs; H/O inguinal hernia repair H/O colonoscopy S/P bronchoscopy with biopsy EBUS on 06/22/24 Family History Father , 95yo Pacemaker Hypertension Diabetes Colorectal cancer Mother , 58yo Lung cancer Brother Medical history unknown Sister Cancer Pt uncertain of type Sister Cancer Pt uncertain of type of cancer Sister Cancer Pt uncertain of type of cancer Sister Drowning Social History Smoking Status: Former smoker Tobacco Type: Cigarettes Cigarettes Per Day: 1 PPD x 53 yrs; Second Hand Exposure: No; Do You Dip or Chew Tobacco: No; Hx Alcohol Use: No Hx Substance Use: No Preferred Language: Kazakh Communication Ability: Effective Digital Marketing Associate Required: No Beliefs That Will Affect Care: None marital status: Single Current Living Situation: Alone current occupational status: retired 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 How many Children do You have: 0 Other Information That Helps Us Care for You: No Feels Safe at Home: Yes Safety Concerns: Feels Safe At This Time Diet: regular caffeine: No during the past year weight has: decreased > 10 lbs Assistive Devices: Glasses Review of Systems Review of Systems: All systems reviewed & are unremarkable except as noted in HPI & below Physical Exam Physical Exam: General: +ill appearing, frail elderly male, +fatigue appearance in no apparent distress currently Head: normocephalic, atraumatic Eyes: conjunctiva non-injected, anicteric ENT: normal inspection external ears, nose, mucous membranes dry Neck: supple, trachea midline Lungs: R: 24, 100% on current 4L oxygen, +diminished breath sounds throughout with poor inspiratory effort CV: Regular rhythm, rate 98, trace pretibial edema Abd: normal BS, soft, non-tender Ext: no cyanosis, no calf tenderness Neuro: +fatigued appearing, alert, oriented to person, place and oriented to time, no focal deficits noted Skin: warm, dry Results & Data Results & Data Vital Signs (Past 12 Hours) Vital Signs Temp Pulse Pulse Resp BP BP Pulse Ox 07/26/24 13:27 94 H 23 126/82 100 07/26/24 13:06 93 H 24 109/79 100 07/26/24 12:51 92/69 L 07/26/24 12:36 190 H 24 98/83 L 98 07/26/24 12:35 108/89 07/26/24 12:24 106 H 24 115/84 98 07/26/24 11:48 116 H 25 H 111/83 96 07/26/24 11:45 117 H 25 H 111/83 96 07/26/24 11:39 115 H 26 H 102/72 95 07/26/24 11:15 119 H 32 H 115/72 91 07/26/24 11:10 124 H 32 H 110/59 L 88 L 07/26/24 11:06 127 H 33 H 110/59 L 88 L 07/26/24 11:03 124 H 30 H 101/80 90 07/26/24 11:00 127 H 33 H 101/80 89 L 07/26/24 11:00 129 H 32 H 101/80 88 L 07/26/24 10:54 124 H 34 H 104/79 97 07/26/24 10:51 124 H 32 H 115/75 90 07/26/24 10:45 123 H 30 H 105/69 97 07/26/24 10:43 126 H 07/26/24 10:42 125 H 30 H 116/91 07/26/24 10:37 190 H 30 H 113/92 90 07/26/24 10:27 0 L 38 H 113/87 78 L 07/26/24 10:24 203 H 07/26/24 10:17 07/26/24 10:17 36.6 C 204 H 40 H 102/85 94 O2 Del Method O2 Flow Rate 07/26/24 13:27 Nasal Cannula 4 07/26/24 13:06 Nasal Cannula 4 07/26/24 12:51 07/26/24 12:36 Nasal Cannula 4 07/26/24 12:35 07/26/24 12:24 Nasal Cannula 4 07/26/24 11:48 Nasal Cannula 4 07/26/24 11:45 Nasal Cannula 4 07/26/24 11:39 Nasal Cannula 4 07/26/24 11:15 Nasal Cannula 2 07/26/24 11:10 Nasal Cannula 2 07/26/24 11:06 Room Air 07/26/24 11:03 Room Air 07/26/24 11:00 Room Air 07/26/24 11:00 Nasal Cannula 2 07/26/24 10:54 Room Air 07/26/24 10:51 Room Air 07/26/24 10:45 Oxymask 3 07/26/24 10:43 07/26/24 10:42 07/26/24 10:37 07/26/24 10:27 Room Air 07/26/24 10:24 07/26/24 10:17 Room Air 07/26/24 10:17 Room Air Laboratory Results Short CBC 07/26/24 Range/Units 10:52 WBC 2.69 L (4.8-10.8) K/ul Hgb 9.7 L (14.0-18.0) g/dl Hct 29.4 L (42.0-52.0) % Plt Count 155 (130-400) K/uL BMP 07/26/24 10:52 Sodium 134 L Potassium 4.3 Chloride 96 L Carbon Dioxide 30 BUN 21 Creatinine 0.59 L Glucose 171 H Calcium 7.1 L Liver Function 07/26/24 Range/Units 10:52 Total Bilirubin 0.7 (0.2-1.0) mg/dl Direct Bilirubin 0.1 (0-0.2) mg/dl AST 20 (13-39) U/L ALT 16 (7-52) U/L Alkaline Phosphatase 162 H (34-104) U/L Albumin 2.5 L (3.4-5.0) gm/dl Diagnostic Findings Chest X-Ray 07/26/24 10:37 XR chest 1V portable CLINICAL HISTORY: Sepsis COMPARISON STUDY: 07/25/2024 FINDINGS: Single view portable chest demonstrates no significant interval change. Continues to be pronounced airspace opacity in the right lung associated with left costophrenic angle blunting and thickening of the minor fissure indicating probable exudative effusion. The left lung is grossly clear. Heart size and pulmonary vascularity are unremarkable. There is no pneumothorax. IMPRESSION: No interval improvement in the right lung infiltrate consistent with pneumonia. Slightly enlarging right pleural effusion. ACT 112: Negative or not required by law. Electronically signed by: Siomara Sofia M.D. 07/26/2024 11:32 AM Chest CTA 07/26/24 10:53 CT angio chest PE protocol CT DOSE: 756.16 mGy.cm HISTORY: PE. TECHNIQUE: Multiple CTA images of the chest were obtained after the intravenous administration of 60 ml Optiray. Coronal and sagittal MIPS were obtained from the axial data set and were submitted for review. All measurements were obtained according to NASCET criteria. A dose lowering technique was utilized adhering to the principles of ALARA. COMPARISON STUDY: Chest x-ray earlier today and PET CT of 06/13/2024 FINDINGS: Right hilar mass measures approximately 5 cm, grossly stable. There is increased reticular and patchy consolidation throughout the right middle lobe and a large portion of the upper to mid right lower lobe which has morphology suggesting metastatic spread of tumor with possible superimposed pneumonia. There is an increased small right pleural effusion and increased adjacent consolidation at the right lung base, pneumonia, tumor, or atelectasis. There is stable moderate emphysema. There is no pneumothorax. There is near occlusion of the right mainstem bronchus with secretions or tumor. The right hilar mass severely narrows the right main pulmonary artery. Evaluation of the tiny distal pulmonary arteries is limited. No pulmonary embolism seen. No pericardial effusion. There is an interval osseous destructive lesion posteriorly and laterally at the left ninth rib. There is an interval osseous destructive lesion laterally at the right seventh rib laterally with superimposed nondisplaced fracture. There are lucent osseous lesions at the T5 and T10 vertebral bodies. There are mild subacute-appearing vertebral body compression fractures at those levels. There is an osseous destructive lesion at the sternum. Findings are consistent with progressive osseous metastatic disease. IMPRESSION: 1. No pulmonary embolism seen. 2. Near obstruction of the right mainstem bronchus with secretions or tumor. 3. Progressive tumor at the right lung with possible superimposed pneumonia. Increased small right pleural effusion. 4. Progressive osseous metastatic disease. 5. Otherwise as described. ACT 112: Negative or not required by law. The above report was generated using voice recognition software. It may contain grammatical, syntax or spelling errors. Electronically signed by: Scott Armenta M.D. 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 Patient denies pain or burning while passing urine, denies blood in the stool or black stool. Patient reports he has been coughing up blood since January which has not improved at all. Patient denies alcohol use and recreational drug use. In the ED, patient's initial heart rate what was in 200, SVT, received 2 doses of adenosine [6 Mg followed by 12 Mg] and look like a flutter. He was cardioverted into sinus tach and then he went back into heart rate of 190s again. Patient was started on Cardizem drip and is currently maintaining sinus rhythm with heart rate in 90s. Labs reviewed, bicytopenia noted likely secondary to acute illness and also secondary to recent chemotherapy. Mild hyponatremia, elevated lactic acid, elevated procalcitonin noted. CT chest with no PE, near obstruction of right mainstem bronchus with secretions or tumor. Increased right-sided pleural effusion and progressive tumor at the right lung with possible superimposed pneumonia noted. Progressive osseous metastatic disease noted. Severe sepsis POA secondary to postobstructive bacterial pneumonia in the patient with lung cancer: Zosyn plus Vanc. Probiotic. Mucociliary clearance therapy including vest therapy. Pulmonology consult . IV fluid. 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 Patient has been diagnosed with cancer January 2024. Dietitian consult. Multivitamins. IV folic acid and thiamine. Arrhythmia: SVT noted at presentation, received adenosine, a flutter noted. See above. Patient currently on diltiazem drip, maintaining sinus rhythm with heart rate in 90s. Continue telemonitoring. Get echo. Cardiology consult. Hold on anticoagulation due to ongoing hematemesis and lower hemoglobin count today. Monitor H&H. Diagnosis of non-small cell lung cancer, metastatic to bone: Continue to follow- up with medical oncology and radiation oncology as an outpatient. On exam: GENERAL: appears chronically ill/tired/weak/frail, on 4L NC O2 HEENT: No pallor, no icterus. Pupils equal, round and reactive to light. Oral mucosa dry. NECK: No JVD, no neck masses. HEART: S1 and S2 heard. Regular rate and rhythm. HR in 90s. No murmur, no gallop. RESPIRATORY SYSTEM: Normal AP diameter. No accessory muscle use. No wheezing, decreased breath sounds b/l due to poor inspiratory effort. ABDOMEN: Soft, bowel sounds present, nontender, no distention. CENTRAL NERVOUS SYSTEM: No facial droop. Speech is clear. Obeys simple commands. Moves extremities. EXTREMITIES: No edema, no erythema seen. I have seen and examined the patient and have discussed the case with the provider above. I agree with the assessment and plan as stated. Time spent: 40 min
[2024-07-26] MEDS: 4.5GM X1 IV STA (14:18)
--- NOTE | 2024-07-26 14:20 | Cardiology Consultation ---
Date of Consultation July 26, 2024 Assessment & Plan (1) Narrow complex tachycardia: Review rhythm strips demonstrates paroxysmal atrial fibrillation flutter as well as multifocal atrial tachycardia (2) Malignant neoplasm of right lung stage 4: Plan 69-year-old male with metastatic lung cancer with near obstruction of the right mainstream bronchus by CT and bony metastasis presents with acute dyspnea tachypalpitations and persistent hemoptysis. Intermittent hypoxia, possible pneumonia Rhythm on presentation narrow complex likely A-fib flutter with rapid response initially treated with synchronized cardioversion with return to sinus tachycardia only the lapsed back into atrial tachycardia flutter versus multifocal atrial tachycardia. Has responded now to IV diltiazem and is maintaining sinus rhythm. Echocardiogram with preserved wall motion 1. Paroxysmal A-fib flutter/multifocal atrial tachycardia secondary to acute illness, mainstem bronchus obstruction, hypoxia. Anticoagulation contraindicated Continue IV diltiazem with consideration to switch to oral calcium channel versus beta-srinivas. High likelihood of return given underlying pathology History of Present Illness Reason for Consultation: Paroxysmal atrial tachycardia [facility] of Present Illness Patient is a 69-year-old male with obstructing non-small cell lung cancer, right lung with bony metastases. Underlying issues include chronic tobacco use recent initiation of chemo and radiation therapywith mild pancytopenia . No prior history of cardiac disease per patient has been feeling poorly for multiple months with symptoms of hemoptysis and worsening shortness of breath anorexia and nausea. Symptoms recently worsened and today patient developed symptoms of tachycardia palpitation and heart pounding resulting in ER presentation. Initial evaluation demonstrated narrow complex tachycardia demonstrated to be A-fib flutter with adenosine administration. Due to 4 dynamics patient underwent synchronized cardioversion returning to sinus tachycardia only to have relapse into A-fib flutter/multifocal atrial tachycardia with rapid response. Patient bolused with IV diltiazem begun on diltiazem drip and currently is in sinus rhythm. Patient notes poor p.o. intake but is able to take oral medications. No associated chest pains fevers or chills still continuing to have cough as well as hemoptysis per patient description. CTA chest obstructive mass right mainstem bronchus with pneumonia. No pulmonary emboli Allergies Allergy/AdvReac Type Severity Reaction Status Date / Time codeine Allergy Mild Itching Verified 07/25/24 02:01 doxycycline AdvReac Intermediate NAUSEA/VOMI Verified 07/25/24 01:56 TING Home Medications Medication Instructions Recorded Confirmed Type naproxen 500 mg tablet 500 mg PO BID PRN pain #14 tabs 05/26/24 07/26/24 Rx albuterol sulfate 90 mcg/actuation 2 puff inhalation Q4H PRN Wheezing 07/03/24 07/26/24 History aerosol inhaler fluticasone 250 mcg-salmeterol 50 1 inh inhalation BID 07/03/24 07/26/24 History mcg/dose blistr powdr for inhalation dexamethasone 4 mg tablet 4 mg PO .as directed 07/11/24 07/26/24 History folic acid 1 mg tablet 1 mg PO DAILY 07/11/24 07/26/24 History lorazepam 0.5 mg tablet 0.5 mg PO Q8H PRN Anxiety 07/11/24 07/26/24 History morphine 15 mg immediate release 15 mg PO BID PRN Pain 07/11/24 07/26/24 History tablet ondansetron HCl 8 mg tablet 8 mg PO Q8H PRN NAUSEA/VOMITING 07/11/24 07/26/24 History oxycodone 5 mg tablet 5 mg PO Q4H PRN Severe Pain (Scale 07/11/24 07/26/24 History Score 7-10) prochlorperazine maleate 10 mg 10 mg PO Q6H PRN NAUSEA/VOMITING 07/11/24 07/26/24 History tablet (Compazine) cefdinir 300 mg capsule 300 mg PO BID 10 days #20 caps 07/18/24 07/26/24 Rx fluconazole 100 mg tablet 100 mg PO QAM 07/25/24 07/26/24 History docusate sodium 100 mg capsule 100 mg PO BID PRN Constipation 07/26/24 07/26/24 History Patient History Medical History Femur fracture, left In past Benign neoplasm of colon Arthritis COPD (chronic obstructive pulmonary disease) Anxiety Lung cancer, primary, with metastasis from lung to other site Lung cancer Chronic back pain Surgical History History of surgery Both lower legs; H/O inguinal hernia repair H/O colonoscopy S/P bronchoscopy with biopsy EBUS on 06/22/24 Family History Father , 95yo Pacemaker Hypertension Diabetes Colorectal cancer Mother , 58yo Lung cancer Brother Medical history unknown Sister Cancer Pt uncertain of type Sister Cancer Pt uncertain of type of cancer Sister Cancer Pt uncertain of type of cancer Sister Drowning Social History Smoking Status: Former smoker Tobacco Type: Cigarettes Cigarettes Per Day: 1 PPD x 53 yrs; Second Hand Exposure: No; Do You Dip or Chew Tobacco: No; Hx Alcohol Use: No Hx Substance Use: Yes (Did smoke it daily but not in past year) Prescribed Medications: Marijuana Preferred Language: [place] Communication Ability: Effective Beliefs That Will Affect Care: None marital status: Single Current Living Situation: Alone current occupational status: 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 How many Children do You have: 0 Feels Safe at Home: Yes Diet: regular caffeine: No during the past year weight has: decreased > 10 lbs Assistive Devices: Glasses Review of Systems Review of Systems: All systems reviewed & are unremarkable except as noted in HPI & below Physical Exam Constitutional: + ill appearing and + thin Eyes: PERRL, conjunctivae normal, anicteric sclerae ENMT: external ear and nose normal, oropharynx normal Neck: trachea midline, no thyromegaly Respiratory: normal respiratory effort, lungs clear to auscultation Cardiovascular: Rate/Rhythm: regular rate and regular rhythm Heart Sounds: normal S1 and normal S2 Results & Data Vital Signs (Past 12 Hours) Vital Signs Temp Pulse Pulse Resp BP BP Pulse Ox 07/26/24 13:27 94 H 23 126/82 100 07/26/24 13:06 93 H 24 109/79 100 07/26/24 12:51 92/69 L 07/26/24 12:36 190 H 24 98/83 L 98 07/26/24 12:35 108/89 07/26/24 12:24 106 H 24 115/84 98 07/26/24 11:48 116 H 25 H 111/83 96 07/26/24 11:45 117 H 25 H 111/83 96 07/26/24 11:39 115 H 26 H 102/72 95 07/26/24 11:15 119 H 32 H 115/72 91 07/26/24 11:10 124 H 32 H 110/59 L 88 L 07/26/24 11:06 127 H 33 H 110/59 L 88 L 07/26/24 11:03 124 H 30 H 101/80 90 07/26/24 11:00 127 H 33 H 101/80 89 L 07/26/24 11:00 129 H 32 H 101/80 88 L 07/26/24 10:54 124 H 34 H 104/79 97 07/26/24 10:51 124 H 32 H 115/75 90 07/26/24 10:45 123 H 30 H 105/69 97 07/26/24 10:43 126 H 07/26/24 10:42 125 H 30 H 116/91 07/26/24 10:37 190 H 30 H 113/92 90 07/26/24 10:27 0 L 38 H 113/87 78 L 07/26/24 10:24 203 H 07/26/24 10:17 07/26/24 10:17 36.6 C 204 H 40 H 102/85 94 O2 Del Method O2 Flow Rate 07/26/24 13:27 Nasal Cannula 4 07/26/24 13:06 Nasal Cannula 4 07/26/24 12:51 07/26/24 12:36 Nasal Cannula 4 07/26/24 12:35 07/26/24 12:24 Nasal Cannula 4 07/26/24 11:48 Nasal Cannula 4 07/26/24 11:45 Nasal Cannula 4 07/26/24 11:39 Nasal Cannula 4 07/26/24 11:15 Nasal Cannula 2 07/26/24 11:10 Nasal Cannula 2 07/26/24 11:06 Room Air 07/26/24 11:03 Room Air 07/26/24 11:00 Room Air 07/26/24 11:00 Nasal Cannula 2 07/26/24 10:54 Room Air 07/26/24 10:51 Room Air 07/26/24 10:45 Oxymask 3 07/26/24 10:43 07/26/24 10:42 07/26/24 10:37 07/26/24 10:27 Room Air 07/26/24 10:24 07/26/24 10:17 Room Air 07/26/24 10:17 Room Air Laboratory Results Laboratory Results - last 24 hr 07/26/24 07/26/24 07/26/24 10:52 11:21 13:00 WBC 2.69 L RBC 3.57 L Hgb 9.7 L Hct 29.4 L MCV 82.4 MCH 27.2 MCHC 33.0 RDW Std Deviation 43.2 RDW Coeff of Hood 14.6 H Plt Count 155 MPV 10.7 Immature Gran % (Auto) 10.0 Neut % (Auto) 71.5 Lymph % (Auto) 16.7 Clinton % (Auto) 0.7 Eos % (Auto) 0.4 Baso % (Auto) 0.7 Neut # (Auto) 1.92 Lymph # (Auto) 0.45 L Clinton # (Auto) 0.02 L Eos # (Auto) 0.01 Baso # (Auto) 0.02 Immature Gran # (Auto) 0.27 H Platelet Estimate Normal VBG pH 7.35 L VBG pCO2 52 H VBG pO2 20 VBG HCO3 29 VBG O2 Saturation < 60.0 VBG Base Excess 2.1 Sodium 134 L Potassium 4.3 Chloride 96 L Carbon Dioxide 30 Anion Gap 8 BUN 21 Creatinine 0.59 L Est Cr Clr Drug Dosing 125.4 eGFR 106.34 BUN/Creatinine Ratio 35.6 H Glucose 171 H Lactate 3.0 H* 1.9 Calcium 7.1 L Magnesium 2.2 Total Bilirubin 0.7 Direct Bilirubin 0.1 AST 20 ALT 16 Alkaline Phosphatase 162 H Troponin I High Sens 8.0 D Total Protein 5.7 L Albumin 2.5 L Procalcitonin 0.65 H Diagnostic Findings Echocardiogram 07/26/2024 The left ventricle is normal in size. There is normal left ventricular wall thickness. The left ventricular wall motion is normal. Left Ventricular Ejection Fraction = 60-65%. The left atrial size is normal. Aortic valve sclerosis mild, without significant aortic valvular stenosis. The right ventricle is normal in size and function. Doppler findings do not suggest pulmonary hypertension.
[2024-07-26] MEDS: ACETYLCYSTEINE 20% INHAL SOLN 4ML ***DISPENSED BY RESP. INH SCH ×2 (14:38→20:30)
--- OUTSIDE RECORDS SUMMARY | 2024-07-26 14:52 | External Medical Summary | Summary of Care ---
Author Name Unknown Organization [facility] Address [address] [place] [address] Phone [phone] Care Team Providers Care Equipment Operation Instructor Name Role Phone Sylvester Renee MD Primary Care Provider + Reason for Visit * Reason Onset Date Comments Appointment 07/25/2024 Niranjan Encounter Details Date Type Department Care Team (Late st Contact Info) Description 07/25/2024 Telephone Hematology/Oncology [facility] [address] [facility] [place] [address] Jarod Ureña MD 200 [place] [address] Appointment (Niranjan) Allergies Active Allergy Reactions Criticality Noted Date Comments Acetaminophen-Codeine Itching 03/23/2012 documented as of this encounter (statuses as of 07/26/2024) Medications Albuterol Sulfate HFA 108 (90 Base) MCG/ACT Inhalation Aerosol SolutionIndicati ons:Wheezing-ass ociated respiratory infection (WARI) TAKE 2 PUFFS BY MOUTH EVERY 4 HOURS NEEDED FOR WHEEZE 18 g 2 5 Active Additional Information Patient not taking.Reported on 06/21/2024 Fluticasone-Salm eterol 250-50 MCG/ACT Inhalation Aerosol Powder Breath Activated (Wixela Inhub) Inhale 1 Puff by mouth in the morning and 1 Puff before bedtime. 180 Each 025 Active Additional Information Patient not taking.Reported on 07/07/2024 Naproxen 500 MG Oral Tablet (Naprosyn) as needed. Active predniSONE 10 MG Oral Tablet (Deltasone) 30 mg x 5 days, 20 mg x 5 days, then 10 mg daily x 5 days. 30 Tablet 5 Active Additional Information Patient not taking.Reported on 07/07/2024 Ondansetron HCl 8 MG Oral Tablet (Zofran)Indicati ons:Malignant neoplasm of lower lobe of right lung (HCC),Metastasis to bone (HCC) Take 1 Tablet by mouth every 8 hours as needed for Nausea. 30 Tablet 2 5 Active Prochlorperazine Maleate 10 MG Oral Tablet (Compazine)Indic ations:Malignant neoplasm of lower lobe of right lung (HCC),Metastasis to bone (HCC) Take 1 Tablet by mouth every 6 hours as needed for Nausea. 30 Tablet 2 5 Active dexAMETHasone 4 MG Oral Tablet (Decadron)Indica tions:Malignant neoplasm of lower lobe of right lung (HCC),Metastasis to bone (HCC) Take 1 tablet by mouth twice a day x3 days starting the day before chemotherapy 36 Tablet 5 Active Folic Acid 1 MG Oral TabletIndication s:Malignant neoplasm of lower lobe of right lung (HCC),Metastasis to bone (HCC) Take 1 Tablet by mouth in the morning. 30 Tablet 5 5 Active Cefdinir 300 MG Oral Capsule (Omnicef)Indicat ions:Bacterial pneumonia Take 1 Capsule by mouth in the morning and 1 Capsule before bedtime. 28 Capsule 5 Active LORazepam 0.5 MG Oral Tablet (Ativan)Indicati ons:Malignant neoplasm of lower lobe of right lung (HCC),Metastasis to bone (HCC),Anxiety Take 1 Tablet by mouth every 8 hours as needed for Anxiety. 30 Tablet 5 Active oxyCODONE HCl 5 MG Oral Tablet (Oxy IR)Indications:M alignant neoplasm of lower lobe of right lung (HCC),Metastasis to bone (HCC) Take 1 Tablet by mouth every 4 hours as needed for Pain, Breakthrough. 60 Tablet 5 Active Docusate Sodium 100 MG Oral Capsule (Colace)Indicati ons:Drug-induced constipation Take 1 Capsule by mouth 2 times a day as needed for Constipation (Constipation). 30 Capsule Active Fluconazole 100 MG Oral Tablet (Diflucan)Indica tions:Thrush Take 1 Tablet by mouth in the morning for 14 days. 2 TABLETS TODAY, THEN 1 TABLET DAILY. 15 Tablet 5 025 Active documented as of this encounter (statuses as of 07/26/2024) Active Problems Problem Noted Date Diagnosed Date Dehydration 07/24/2024 Malignant neoplasm of lower lobe of right lung 0 07/07/2024 Encounter for antineoplastic chemotherapy 2024 Non-small cell lung cancer metastatic to bone Overview (06/27/2024): EBUS 06/22/2024 Metastasis to bone 06/27/2024 Lung mass 06/06/2024 Family history of diabetes mellitus 05/27/2009 documented as of this encounter (statuses as of 07/26/2024) Resolved Problems Problem Noted Date Diagnosed Date Resolved Date Benign neoplasm of colon 01/20/2010 Overview (06/10/2014): 05/24/2014: diminutive colon polyp transverse colon at [facility], repeat 5 years 12/31/2009: 3 polyps removed adenomas, repeat 5 years Family history of colon cancer 05/27/2009 06/06/2024 Overview (05/27/2014): Father documented as of this encounter (statuses as of 07/26/2024) Immunizations No known immunizationsdocumented as of this encounter Social History Tobacco Use Types Packs/Day Years Used Date Smoking Tobacco: Former Cigarettes 1 53.7 1 971 - 01/18/2024 Smokeless Tobacco: Never Alcohol Use Standard Drinks/Week Comments No 0 (1 standard drink = 0.6 oz pur e alcohol) 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 Received message from rad/onc- patient rescheduled radiation start to next Wednesday, which means he will not be done prior to next cycle. Will need to follow up after office to determine plan/ if date of treatment needs to be changed. * Telephone Encounter - Jyoti Nazario OSA - 07/25/2024 1:04 PM EDT Called and he stated that he was still sleeping and that he wanted someone to try to call back in about 30 min to see as he did not get to talk to him yet * Telephone Encounter - Alma Pollock RN - 07/25/2024 11:36 AM EDT Called Tony. He is with So now. States that last night around 1111:30 So called him and asked him to bring him to the ED. They went to the ED where they did a CXR, labs, and gave him a liter of fluids, but they suggested doing a CT scan. So was "nervous" about doing a scan and didn't want to do it, so they sent him home instead of admitting him. They got home around 5am. He states that he called So around 9:30 this morning to let him know he was leaving to come pick him up, but So didn't answer. When Tony got there, So said that he didn't feel well enough to go to appts. Advised Tony that we would really encourage patient to be seen- advised that if he is still with So, it would be ok for them to still come now and Dr Ureña would see him. Tony states that So justtook a oxycodone and his antibiotic and fell asleep, so he knows he will not come. Tony asked about rescheduling. Offered appts tomorrow and . Tony states that he will needto check with So on appt times, asked that we give him a call around 1pm. * Telephone Encounter - Jyoti Nazario OSA - 07/25/2024 11:14 AM EDT Left message * Telephone Encounter - Gwen Torres OSA - 07/25/2024 11:01 AM EDT Pt is not feeling well cannot make appt today Please call Nicholas documented in this encounter Plan of Treatment Upcoming Encounters Date Type Department Care Team (Late st Contact Info) Description 07/27/2024 9:00 AM EDT Office Visit [place] [facility] [place] [place] [address] [place] [phone] Jarod Ureña MD [address] [place] [address] 08/03/2024 2:00 PM EDT Imaging Radiology [facility] 1[facility], [place] [address] [place] [phone] 08/10/2024 11:30 AM EDT Laboratory Laboratory [facility] Zandra [place] [address] [place] [phone] [place] [address] 08/10/2024 12:00 PM EDT Office Visit [place]ology[place] [facility] [place] [address] [place] [phone] Maria Esther Mccullough CRNP [address] [place] [address] 08/10/2024 12:30 PM EDT Hem/Onc Treatment Hematology/Oncology Treatment, [place] [address] [place] [address] Park, Chair [address] Hem Onc Scenery [address] [place] [address] 08/15/2024 1:00 PM EDT Office Visit Pulmonary Medicine, [facility] [address] [place] [address] Ruddy Hitchcock MD [address] [place] [address] Scheduled Procedures Name Priority Associated Diagnoses Date/Ti me COLONOSCOPY FLEXIBLE PROXIMA L DIAGNOSTIC Recall Personal history of colonic polyps Family history of colonic polyps Health Maintenance Due Date Last Done Comments Lipid Panel 1957 Depression Screening 1969 Hepatitis C Screening 1975 Pneumococcal Vaccine: 50+ Years (1 of 2 - PCV) 1976 Zoster Vaccines (1 of 2) 1976 Cologuard 2002 Fecal Occult Blood Test 2002 Sigmoidoscopy 2002 COVID-19 Vaccine (3 - Modern a risk series) 10/01/2020 09/03/2020, 08/06/2020 AAA Screening 2022 Adult Wellness Visit 2023 Colonoscopy 05/24/2024 05/24/2014, 05/24/2014, 12/31/2009 Colorectal Cancer Screening 05/24/2024 Influenza Vaccine (FLU shot) (Season Ended) 2024 DTap/Tdap Vaccines (2 - Td o r Tdap) 09/17/2025 09/18/2015 HPV (Gardasil) Vaccine Aged Out No lo nger eligible based on patient's age to complete this topic Hepatitis B Vaccine Aged Out No longe r eligible based on patient's age to complete this topic MENINGOCOCCAL (MENACTRA/MENVEO) Aged Out No longer eligible b ased on patient's age to complete this topic Meningitis B Vaccine (Bexsero/Trumemba) Aged Out No longer eligible b ased on patient's age to complete this topic documented as of this encounter Medical Devices Implanted Type Area Project Hire Device Identifier Shelf Expiration Date Model / Serial / Lot Mesh Prolite Preshp 2x4in - [id number] Implanted:Qty: 1 on 03/29/2012 at [facility] Right: Groin [employer] 07/17/2016 [id number] documented as of this encounter Care Teams Equipment Operation Instructor Relationship Specialty Start Date End Date Sylvester Renee MD [address] [place] [address] [place] [address] PCP - General Internal Medicine 06/12/24 documented as of this encounter
--- OUTSIDE RECORDS SUMMARY | 2024-07-26 14:52 | External Medical Summary | Summary of Care ---
Author Name Unknown Organization [facility] Address [address] [place] [address] Phone [phone] Care Team Providers Care Board Setter Name Role Phone Sylvester Renee MD Primary Care Provider + Reason for Visit * Reason Onset Date Comments Appointment 07/25/2024 Niranjan Encounter Details Date Type Department Care Team (Late st Contact Info) Description 07/25/2024 Telephone Hematology/Oncology [facility] [address] [place] [address] Jarod Ureña MD 200 [facility] [place] [address] Appointment (Niranjan) Allergies Active Allergy Reactions Criticality Noted Date Comments Acetaminophen-Codeine Itching 03/23/2012 documented as of this encounter (statuses as of 07/25/2024) Medications Albuterol Sulfate HFA 108 (90 Base) MCG/ACT Inhalation Aerosol SolutionIndicati ons:Wheezing-ass ociated respiratory infection (WARI) TAKE 2 PUFFS BY MOUTH EVERY 4 HOURS NEEDED FOR WHEEZE 18 g 2 Active Additional Information Patient not taking.Reported on [...] as of this encounter (statuses as of 07/25/2024) Active Problems Problem Noted Date Diagnosed Date Dehydration 07/24/2024 Malignant neoplasm of lower lobe of right lung 0 07/07/2024 Encounter for antineoplastic chemotherapy 2024 Non-small cell lung cancer metastatic to bone Overview (06/27/2024): EBUS 06/22/2024 Metastasis to bone 06/27/2024 Lung mass 06/06/2024 Family history of diabetes mellitus 05/27/2009 documented as of this encounter (statuses as of 07/25/2024) Resolved Problems Problem Noted Date Diagnosed Date Resolved Date Benign neoplasm of colon 01/20/2010 Overview (06/10/2014): 05/24/2014: diminutive colon polyp transverse colon at [facility], repeat 5 years 12/31/2009: 3 polyps removed adenomas, repeat 5 years Family history of colon cancer 05/27/2009 06/06/2024 Overview (05/27/2014): Father documented as of this encounter (statuses as of 07/25/2024) Immunizations No known immunizationsdocumented as of this [...] 07/27/2024 9:00 AM EDT Office Visit [facility]ology[facility] [place] [address] [place] [phone] Jarod Ureña MD [address] [place] [address] 08/03/2024 2:00 PM EDT Imaging Radiology [facility] 1[facility], [place] [address] [place] [phone] 08/10/2024 11:30 AM EDT Laboratory Laboratory [facility] Zandra [place] [address] [place] [phone] [place] [address] 08/10/2024 12:00 PM EDT Office Visit Hematology/Oncology [facility] [place] [place] [address] [place] [phone] Maria Esther Mccullough CRNP [address] [place] [address] 08/10/2024 12:30 PM EDT Hem/Onc Treatment Hematology/Oncology Treatment, [place] [address] [place] [address] Park, Chair 6 Hem Onc Scenery [address] [place] [address] 08/15/2024 1:00 PM EDT Office Visit Pulmonary Medicine, [facility] [address] [place] [address] Ruddy Hitchcock MD [address] [place] [address] Scheduled Procedures Name Priority Associated Diagnoses Date/Ti [...] this encounter Medical Devices Implanted Type Area House Director Device Identifier Shelf Expiration Date Model / Serial / Lot Mesh Prolite Preshp 2x4in - [id number] Implanted:Qty: 1 on 03/29/2012 at [facility] Right: Groin [employer] 07/17/2016 [id number] / [id number] / [id number] documented as of this encounter Care Teams Board Setter Relationship Specialty Start Date End Date Sylvester Renee MD [address] [place] [address] [place] [address] PCP - General Internal Medicine 06/12/24 documented as of this encounter
--- OUTSIDE RECORDS SUMMARY | 2024-07-26 14:52 | External Medical Summary | Summary of Care ---
Author Name Unknown Organization [facility] Address [address] [place] [address] Phone [phone] Care Team Providers Care Awning Craftsman Name Role Phone Sylvester Renee MD Primary Care Provider + Reason for Visit * Reason Onset Date Comments Appointment 07/25/2024 Niranjan Encounter Details Date Type Department Care Team (Late st Contact Info) Description 07/25/2024 Telephone Hematology/Oncology [facility] 200 [facility] [place] [address] Jarod Ureña MD 200 [place] [address] Appointment (Niranjan) Allergies Active Allergy Reactions Criticality [...] 05/24/2014: diminutive colon polyp transverse colon at [facility], repeat 5 years 12/31/2009: 3 polyps removed [...] 07/27/2024 9:00 AM EDT Office [facility] [place] [address] [place] [address] [place] [phone] Jarod Ureña MD [address] [place] [address] 08/03/2024 2:00 PM EDT Imaging Radiology [facility] [address] [facility], [place] [address] [place] [phone] 08/10/2024 11:30 AM EDT Laboratory Laboratory [facility] Zandra [place] [address] [place] [phone] [place] [address] 08/10/2024 12:00 PM EDT Office Visit Hematology/Oncology [facility] [place] [address] [place] [place] [phone] Maria Esther Mccullough CRNP [address] [place] [address] 08/10/2024 12:30 PM EDT Hem/Onc Treatment Hematology/Oncology Treatment, [place] [address] [place] [address] Park, Chair 6 Hem Onc Scenery [address] [place] [address] 08/15/2024 1:00 PM EDT Office Visit Pulmonary Medicine, [facility] [address] [place] [address] Ruddy Hitchcock MD [address] [place] [address] Scheduled Procedures Name Priority Associated Diagnoses Date/Ti [...] this encounter Medical Devices Implanted Type Area Audio Visual Technician Device Identifier Shelf Expiration Date Model / Serial / Lot Mesh Prolite Preshp 2x4in - [id number] Implanted:Qty: 1 on 03/29/2012 at [facility] Right: Groin [employer] 07/17/2016 [id number] / [id number] / [id number] documented as of this encounter Care Teams Awning Craftsman Relationship Specialty Start Date End Date Sylvester Renee MD [address] [place] [address] [place] [address] PCP - General Internal Medicine 06/12/24 documented as of this encounter
--- OUTSIDE RECORDS SUMMARY | 2024-07-26 14:53 | External Medical Summary | Summary of Care ---
Author Name Unknown Organization [facility] Address [address] [place] [address] Phone [phone] Care Team Providers Care Maintenance Worker House Trailer Name Role Phone Sylvester Renee MD Primary Care Provider + Reason for Visit * Reason Onset Date Comments Appointment 07/25/2024 Niranjan Encounter Details Date Type Department Care Team (Late st Contact Info) Description 07/25/2024 Telephone Hematology/Oncology [facility] 200 [facility] [place] [address] Jarod Ureña MD 200 [facility] [place] [address] Appointment (Niranjan) Allergies Active Allergy Reactions Criticality [...] 05/24/2014: diminutive colon polyp transverse colon at [facility], repeat 5 years 12/31/2009: 3 polyps removed [...] encounter Miscellaneous Notes * Telephone Encounter - Jyoti Nazario OSA [...] So now. States that last night around 02/27:30 So called him and asked him to [...] call around 1pm. * Telephone Encounter - yJoti Nazario OSA - 07/25/2024 11:14 AM EDT Left message * Telephone Encounter - Gwen Torres OSA - 07/25/2024 11:01 AM EDT Pt is not feeling well cannot make appt today Please call Nicholas documented in this encounter Plan of Treatment Upcoming Encounters Date Type Department Care Team (Late st Contact Info) Description 07/27/2024 9:00 AM EDT Office Visit Hematology/Oncology [facility] [place] [address] [place] [phone] Jarod Ureña MD [address] [place] [address] 08/03/2024 2:00 PM EDT Imaging Radiology [address] [place] [phone] 08/10/2024 11:30 AM EDT Laboratory Laboratory [facility] [place] [address] [place] [phone] Zandra, Lab [facility] 200 [facility] [place] [address] 08/10/2024 12:00 PM EDT Office Visit Hematology/Oncology [facility] [place] [address] [place] [phone] Maria Esther Mccullough, MICHAEL 400 [facility] [place] [address] 08/10/2024 12:30 PM EDT Hem/Onc Treatment Hematology/Oncology Treatment, [place] [address] [place] [phone] Zandra, Chair 6 Hem Onc [facility] 200 [facility] [place] [address] 08/15/2024 1:00 PM EDT Office Visit Pulmonary Medicine, [facility] [address] [place] [phone] Ruddy Hitchcock MD [address] [place] [id number] Scheduled Procedures Name Priority Associated Diagnoses Date/Ti [...] this encounter Medical Devices Implanted Type Area Ambulatory Services Representative Device Identifier Shelf Expiration Date Model / Serial / Lot Mesh Prolite Preshp 2x4in - [id number] Implanted:Qty: 1 on 03/29/2012 at [facility] Right: Groin [employer] 07/17/2016 [id number] / [id number] / [id number] documented as of this encounter Care Teams Maintenance Worker House Trailer Relationship Specialty Start Date End Date Sylvester Renee MD 200 [facility] [place] [address] PCP - General Internal Medicine 06/12/24 documented as of this encounter
--- OUTSIDE RECORDS SUMMARY | 2024-07-26 14:53 | External Medical Summary | Summary of Care ---
Author Name Unknown Organization [facility] Address [address] [place] [address] Phone [phone] Care Team Providers Care Supervisor Heavy Equipment Name Role Phone Sylvester Renee MD Primary Care Provider + Reason for Visit * Reason Onset Date Comments Information 07/24/2024 Encounter Details Date Type Department Care Team (Late st Contact Info) Description 07/24/2024 Telephone Hematology/Oncology Treatment, [place] [address] [place] [address] Jarod Ureña MD 200 [facility] [place] [address] Information Allergies Active Allergy Reactions Criticality Noted Date [...] and 1 Puff before bedtime. 180 Each 5 025 Active Additional Information Patient not taking.Reported [...] as needed for Constipation (Constipation). 30 Capsule 5 Active documented as of this encounter (statuses [...] 05/24/2014: diminutive colon polyp transverse colon at [facility], repeat 5 years 12/31/2009: 3 [...] Encounter - Jyoti Nazario OSA - 07/25/2024 8:40 AM EDT Pt is on the schedule to see Dr arizmendi And nursing said this was ok to hold of on scheduling tx/ * Telephone Encounter - Alma Pollock RN - 07/24/2024 3:48 PM EDT Reviewed with Kaur- would like So to come back this week to see Dr Ureña, ?additional hydration. Scheduling: please call Tony (since he needs to check his work schedule to transport patient) to schedule for this week - follow up with Dr Ureña - 2 hour appt "?hydration" Thanks! * Addendum Note - Kaur Tyson CRNP - 07/24/2024 12:04 PM EDTAddended by: KAUR TYSON on: 07/24/2024 12:04 PM Modules accepted: Orders * Telephone Encounter - Kaur Tyson CRNP - 07/24/2024 12:03 PM EDT Orders placed. * Telephone Encounter - Alma Pollock RN - 07/24/2024 10:29 AM EDT Received message from [facility] rad/onc that Tony called this morning to cancel patients radiation apptas patient is too sick. Called patient. Patient confirmed that he has not been able to drink or eat anything, states that he might be taking his antinausea medications but unable to say what he has been taking, when, or if he has tried both zofran/ compazine. He states that he is not dizzy. Patient then started vomiting so hung up the phone. Called Tony. He states that he does not know what So has been taking. He had been trying to reachIra all weekend, but So didn't answer the phone so he sent his son over to check on him last evening. His son made So take a zofran while he was there last night and it seemed like it may have helped. Tony states that he doesn't think So took his dexamethasone the day after chemotherapy either. Henotes that So had thrush before chemo started and was given a liquid to take, but didn't like it so stopped taking it- he thinks this may also be contributing to how patient is feeling. Asked Tony if he could bring patient here for hydration- Tony states that he can. Will check labs with IV start. Kaur: can you please place order for 1L NSS over 2 hours, give 8mg IV zofran, can give 8mg IV decadron as needed for nausea if zofran ineffective? Thanks! documented in this encounter Plan of Treatment Upcoming Encounters Date Type Department Care Team (Late st Contact Info) Description 07/25/2024 11:30 AM EDT Office Visit Hematology/Oncology [place] [address] [address] [place] [phone] Jarod Ureña MD [address] [place] [address] 08/03/2024 2:00 PM EDT Imaging Radiology [address], [place] [address] [place] [address] 08/10/2024 11:30 AM EDT Laboratory Laboratory [facility] [address] [place] [phone] N[place] De Paz [facility] [address] [place] [address] 08/10/2024 12:00 PM EDT Office Visit Hematology/Oncology [facility] [place] [address] [place] [phone] Maria Esther Mccullough CRNP 400 [facility] [place] [address] 08/10/2024 12:30 PM EDT Hem/Onc Treatment [place]ology[place] [address] [place] [address] Park, Chair 6 Hem Onc Scenery [address] [place] [address] 08/15/2024 1:00 PM EDT Office Visit Pulmonary Medicine, [facility] [address] [place] [phone] Ruddy Hitchcock MD [address] [place] [address] Scheduled Procedures Name Priority Associated Diagnoses Date/Ti [...] this encounter Medical Devices Implanted Type Area Medical Front Desk Specialist Device Identifier Shelf Expiration Date Model / Serial / Lot Mesh Prolite Preshp 2x4in - [id number] Implanted:Qty: 1 on 03/29/2012 at [facility] Right: Groin [employer] [facility] 07/17/2016 [id number] / [id number] / [id number] documented as of this encounter Visit Diagnoses Diagnosis Chemotherapy induced nausea and vomiting- Primary Nausea with vomiting documented in this encounter Care Teams Supervisor Heavy Equipment Relationship Specialty Start Date End Date Sylvester Renee MD [address] [place] [address], [place] [address] PCP - General Internal Medicine 06/12/24 documented as of this encounter
--- OUTSIDE RECORDS SUMMARY | 2024-07-26 14:53 | External Medical Summary | Summary of Care ---
Author Name Unknown Organization [facility] Address [address] [place] [address] Phone [phone] Care Team Providers Care Marketing Graphics Specialist Name Role Phone Sylvester Renee MD Primary Care Provider + Reason for Visit * Reason Comments IV Therapy IV hydration/labs Encounter Details Date Type Department Care Team (Latest Contact Info) Description 07/24/2024 2:30 PM EDT Hem/Onc Treatment Hematology/Oncology Treatment, [address] [address] Zandra, Chair 11 Hem Onc Scenery 200 [place], [place] [phone] Dehydration*; Malignant neoplasm of lower lobe of right lung (HCC); Metastasis to bone (HCC); Thrush Allergies Active Allergy Reactions Criticality Noted Date [...] for Constipation (Constipation). 30 Capsule 5 Active Fluconazole 100 MG Oral Tablet (Diflucan)Indica [...] 05/24/2014: diminutive colon polyp transverse colon at [facility], repeat 5 years 12/31/2009: 3 polyps [...] f ile documented as of this encounter Last Filed Vital Signs Vital Sign Reading Time Taken Comments Blood Pressure 114/78 07/24/2024 2:47 PM EDT Pulse 113 07/24/2024 2:47 PM EDT Temperature 36.9 °C (98.4 °F) 07/24/2024 2:47 PM ED T Respiratory Rate 16 07/24/2024 2:47 PM EDT Oxygen Saturation 96% 07/24/2024 2:47 PM EDT Inhaled Oxygen Concentration - - Weight - - Height - - Body Mass Index - - documented in this encounter Nursing Notes * Kassandra Cintron RN - 07/24/2024 5:08 PM EDT Pt completed treatment without issues. PIV removed intact. Pt initially complained of dizziness prior to standing, but then stated "I'm fine" and transferred to w/c unassisted. Pt will return to clinic tomorrow to see Dr. Ureña; reviewed appointment with friend Tony, who will transport patient. Goals: Pt will remain free from injury. Possible barriers to meeting goals: pt is a high fall risk Stability of the patient: Moderately unstable - medium risk of patient condition declining or worsening Summary regarding today's goals: Met: . Pt remained free from injury during treatment today. Discharged in stable condition. * Kassandra Cintron RN - 07/24/2024 3:49 PM EDT Chair 9, IV hydration/labs. Pt presents to clinic via wheelchair, assisted by friend Tony. Pt stated he feels nauseous, denies vomiting since Wednesday. Pt reports he has not eaten solid food since following his first chemo treatment. Pt stated he drank a "nutrition shake" on Wednesday. PIV established; Specimen collected for ordered labs. NSS Infusing. Zofran IVP administered. Pt denies further needs at this time. Safety and Risk for Injury Patient will remain free from injury. Ensure appropriate safety devices are available. Provide and maintain safe environment. Patient instructed on use of heat and massage functions where applicable. Patient shown how to operate the heat function of the chair and to alert nursing staff if the chair feels too warm. Patient instructed on the risk of potential angulo while using the heat function. Reassessed pt's nausea approximately 20 minutes post Zofran administration. Pt stated the medication didn't help, but declined dexamethasone. Continuing to monitor. documented in this encounter Plan of Treatment Upcoming Encounters Date Type Department Care Team (Late st Contact Info) Description 08/03/2024 2:00 PM EDT Imaging Radiology [address] [place] [phone] 08/10/2024 11:30 AM EDT Laboratory Laboratory [address] [place] [phone] [facility] [address] [facility] [place] [address] 08/10/2024 12:00 PM EDT Office Visit Hematology/Oncology [facility] 200 [facility] [place] [phone] Maria Esther Mccullough, MICHAEL [address] [place] [address] [place] [address] 08/10/2024 12:30 PM EDT Hem/Onc Treatment [facility]ology[facility]cology [facility], [place] [facility] [phone] Zandra, Chair 6 Hem Onc [address] [place] [address] 08/15/2024 1:00 PM EDT Office Visit Pulmonary Medicine, [facility] [address] [place] [phone] Ruddy Hitchcock MD [address] [place] [address] Scheduled Procedures Name Priority Associated Diagnoses Date/Ti [...] this encounter Medical Devices Implanted Type Area Rfid Systems Engineer Device Identifier Shelf Expiration Date Model / Serial / Lot Mesh Prolite Preshp 2x4in - [id number] Implanted:Qty: 1 on 03/29/2012 at [facility] Right: Groin [employer] 07/17/2016 [id number] / [id number] / [id number] documented as of this encounter Procedures Procedure Name Priority Date/Time Associated Diagnosis Comments DIFFERENTIAL, AUTOMATED STAT 07/24/2024 3:05 PM EDT Dehydration Malignant neoplasm of lower lobe of right lung (HCC) Metastasis to bone (HCC) COMPREHENSIVE METABOLIC PANEL STAT 07/24/2024 3:05 PM EDT Dehydration Malignant neoplasm of lower lobe of right lung (HCC) Metastasis to bone (HCC) CBC STAT 07/24/2024 3:05 PM EDT Dehydration Malignant neoplasm of lower lobe of right lung (HCC) Metastasis to bone (HCC) CBC STAT 07/24/2024 3:05 PM EDT Dehydration Malignant neoplasm of lower lobe of right lung (HCC) Metastasis to bone (HCC) DIFFERENTIAL, TECHNOLOGIST REVIEW Routine 07/24/2024 3:05 PM EDT Dehydration Malignant neoplasm of lower lobe of right lung (HCC) Metastasis to bone (HCC) MAGNESIUM STAT 07/24/2024 3:05 PM EDT Dehydration Malignant neoplasm of lower lobe of right lung (HCC) Metastasis to bone (HCC) documented in this encounter Results * (ABNORMAL) DIFFERENTIAL, TECHNOLOGIST REVIEW (07/24/2024 3:05 PM EDT) WBC 8.52 4.00 - 10.80 K/uL 07/24/2024 3:32 PM EDT [facility] 56-02 Neutrophils % 87.0(H) 40.0 - 75.0 % 07/24/2024 3:32 PM EDT [facility] 56-02 Lymphocytes % 9.0(L) 18.0 - 42.0 % 07/24/2024 3:32 PM EDT [facility] 56-02 Monocytes % 2.0 1.0 - 11.0 % 07/24/2024 3:32 PM EDT [facility] 56-02 Eosinophils % 1.0 0.0 - 6.0 % 07/24/2024 3:32 PM EDT [facility] 56-02 Metamyelocytes % 1.0(H) <=0.0 % 07/25/19 25 3:32 PM EDT [facility] 56-02 Absolute Neutrophils 7.41 1.80 - 7.70 K/uL 07/24/2024 3:32 PM EDT [facility] 56-02 Absolute Lymphocytes 0.77(L) 1.00 - 4.80 K/uL 07/24/2024 3:32 PM EDT [facility] 56-02 Absolute Monocytes 0.17 0.00 - 1.10 K/uL 07/24/2024 3:32 PM EDT [facility] 56- Absolute Eosinophils 0.09 0.00 - 0.70 K/uL 07/24/2024 3:32 PM EDT [facility] 56- Absolute Metamyelocytes 0.09(H) <=0.00 K/uL 07/24/2024 3:32 PM EDT [facility] 56- nRBCs 07/24/2024 3:32 PM EDT [facility] 56 Blood Venous blood specimen / Unknown Venipuncture / Unknown 07/24/2024 3:05 PM EDT 07/24/2024 3:08 PM EDT Jarod Ureña MD LAB BLOOD ORDERABLES Final Res ult Performing Organization Address City/[facility]/ZIP Co de Phone Number [facility] [address] [place] [phone] * DIFFERENTIAL, AUTOMATED (07/24/2024 3:05 PM EDT) Blood Venous blood specimen / Unknown Venipuncture / Unknown 07/24/2024 3:05 PM EDT 07/24/2024 3:08 PM EDT Jarod Ureña MD LAB BLOOD ORDERABLES Final Res ult Performing Organization Address City/[facility]/ZIP Co de Phone Number [facility] [address] [place] [phone] * (ABNORMAL) CBC (07/24/2024 3:05 PM EDT) WBC 8.52 4.00 - 10.80 K/uL 07/24/2024 3:32 PM EDT [facility] 56 RBC 3.67 4.50 - 5.25 M/uL 07/24/2024 3:32 PM EDT [facility] 56- HGB 10.1(L) 14.0 - 16.8 g/dL 07/24/2024 3:32 PM EDT [facility] 56 HCT 30.7(L) 40.0 - 48.4 % 07/24/2024 3:32 PM EDT [facility] 56 MCV 83.7 82.0 - 99.5 fL 07/24/2024 3:32 PM EDT [facility] 56 MCH 27.5 27.0 - 34.0 pg 07/24/2024 3:32 PM EDT [facility] 56 MCHC 32.9 32.0 - 36.0 g/dL 07/24/2024 3:32 PM EDT [facility] 56 RDW 14.9 11.5 - 15.5 % 07/24/2024 3:32 PM EDT [facility] 56 PLT 316 140 - 400 K/uL 07/24/2024 3:32 PM EDT [facility] 56 MPV 9.8 6.6 - 11.1 fL 07/24/2024 3:32 PM EDT [facility] 56 Blood Venous blood specimen / Unknown Venipuncture / Unknown 07/24/2024 3:05 PM EDT 07/24/2024 3:08 PM EDT Jarod Ureña MD LAB BLOOD ORDERABLES Final Res ult [facility] [address] [place] [address] * MAGNESIUM (07/24/2024 3:05 PM EDT) Magnesium 2.4 1.5 - 2.6 mg/dL 07/24/2024 4:09 PM EDT [facility] Blood Venous blood specimen / Unknown Venipuncture / Unknown 07/24/2024 3:05 PM EDT 07/24/2024 3:08 PM EDT Jarod Uerña MD LAB BLOOD ORDERABLES Final Res ult [facility] 56 [address] [place] [address] * (ABNORMAL) COMPREHENSIVE METABOLIC PANEL (07/24/2024 3:05 PM EDT) BUN 25(H) 6 - 20 mg/dL 07/24/2024 4:[address] CREATININE 0.5(L) 0.6 - 1.2 mg/dL 07/24/2024 4:[address] EGFR >90 >=60 mL/min 07/24/2024 4:[address] Comment:eGFR is calculated b ased on the CKD-EPI 2020 equation. SODIUM 128(L) 135 - 146 mmol/L 07/24/2024 4:[address] Comment:Results rechecked. POTASSIUM 4.7 3.5 - 5.1 mmol/L 07/24/2024 4:[address] CHLORIDE 90(L) 98 - 107 mmol/L 07/24/2024 4:[address] CO2 26 22 - 32 mmol/L 07/24/2024 4:[address] ANION GAP 12 7 - 15 mmol/L 07/24/2024 4:[address] GLUCOSE 141(H) 70 - 120 mg/dL 07/24/2024 4:[address] Albumin 2.8(L) 3.8 - 5.0 g/dL 07/24/2024 4:[address] AST 30 10 - 50 U/L 07/24/2024 4:[address] Comment:Result may be falsel y elevated due to hemolysis. Alkaline Phosphatase 242(H) 35 - 130 U/L 07/24/2024 4:[address] Bilirubin, Total 0.5 <=1.2 mg/dL 07/24/2024 4:09 PM [facility] 56 CALCIUM 7.9(L) 8.4 - 10.2 mg/dL 07/24/2024 4:09 PM [facility] 56 Protein 6.5 6.0 - 8.3 g/dL 07/24/2024 4:09 PM [facility] 56 ALT 21 10 - 50 U/L 07/24/2024 4:09 PM EDT [facility] 56- Blood Venous blood specimen / Unknown Venipuncture / Unknown 07/24/2024 3:05 PM EDT 07/24/2024 3:08 PM EDT us Jarod Ureña MD LAB BLOOD ORDERABLES Final Res ult [facility] [address] documented in this encounter Visit Diagnoses Diagnosis Dehydration- Primary Malignant neoplasm of lower lobe of right lung (HCC) 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 Thrush Candidiasis of mouth documented in this encounter Administered Medications Inactive Administered Medications - up to 3 most recent administrations Medication Order MAR Action Action Date Dose Rate Site NSS infusion FOR HYDRATION Intravenous, at 500 mL/hr Administer over 2 Hours, ONCE, 1 dose, On Wed07/24/24 at 1615Indications:Dehydrati on,Malignant neoplasm of lower lobe of right lung (HCC),Metastasis to bone (HCC) Start Infusion 07/24/2024 3:13 PM EDT 1,000 mL 500 mL/hr ondansetron (Zofran) inj 8 mg 8 mg, IV Push, ONCE, On Wed07/24/24 at 1545, For 1 doseIndications:Dehydrati on,Malignant neoplasm of lower lobe of right lung (HCC),Metastasis to bone (HCC) Given 07/24/2024 3:14 PM EDT 8 mg documented in this encounter Care Teams Marketing Graphics Specialist Relationship Specialty Start Date End Date Sylvester Renee MD 200 [facility] [address] PCP - General Internal Medicine 06/12/24 documented as of this encounter
--- OUTSIDE RECORDS SUMMARY | 2024-07-26 14:53 | External Medical Summary | Summary of Care ---
Author Name Unknown Organization [facility] Address [address] [place] [address] Phone [phone] Care Team Providers Care Ignition Specialist Name Role Phone Sylvester Renee MD Primary Care Provider + Reason for Visit * Reason Onset Date Comments Appointment 07/20/2024 Encounter Details Date Type Department Care Team (Late st Contact Info) Description 07/20/2024 Telephone Hematology/Oncology [facility] [address] [place] [address] Jarod Ureña MD [address] [facility] [place] [address] Appointment Allergies Active Allergy Reactions Criticality Noted Date Comments Acetaminophen-Codeine Itching 03/23/2012 documented as of this encounter (statuses as of 07/25/2024) Medications Albuterol Sulfate HFA 108 (90 Base) MCG/ACT Inhalation Aerosol SolutionIndicat ions:Wheezing-a ssociated respiratory infection (WARI) TAKE 2 PUFFS BY MOUTH EVERY 4 HOURS NEEDED FOR WHEEZE 18 g 2 06/09/19 25 Active Additional Information Patient not taking.Reported on 06/21/2024 Fluticasone-Les meterol 250-50 MCG/ACT Inhalation Aerosol Powder Breath Activated (Wixela Inhub) Inhale 1 Puff by mouth in the morning and 1 Puff before bedtime. 180 Each 06/21/19 25 025 Active Additional Information Patient not taking.Reported on 07/07/2024 Naproxen 500 MG Oral Tablet (Naprosyn) as needed. Active predniSONE 10 MG Oral Tablet (Deltasone) 30 mg x 5 days, 20 mg x 5 days, then 10 mg daily x 5 days. 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 30 Tablet 5 07/08/19 25 Active Cefdinir 300 MG Oral Capsule (Omnicef)Indica tions:Bacterial pneumonia Take 1 Capsule by mouth in the morning and 1 Capsule before bedtime. 28 Capsule 07/18/19 25 Active oxyCODONE HCl 5 MG Oral Tablet (Oxy IR)Indications: Lung mass,Polyarthra lgia Take 1 Tablet by mouth every 8 hours as needed for Pain, Severe. 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 30 Tablet 07/08/19 25 025 Discontin ued(Refil l) documented as of this encounter (statuses as of 07/25/2024) Active Problems Problem Noted Date Diagnosed Date Malignant neoplasm of lower lobe of right [...] 05/24/2014: diminutive colon polyp transverse colon at [facility], repeat 5 years 12/31/2009: 3 polyps removed [...] encounter Miscellaneous Notes * Telephone Encounter - Barrera Chambers RN - 07/20/2024 2:07 PM EDT Internal Med- please schedule patient for follow up with Dr. Renee for HD. He has been to [facility] the past month for pneumonia, most recently given a 14 day supply of Cefdinir. Pulm- please reschedule patient for follow up with Dr. Naldo Hitchcock/Dr. Renee- Patient was recently discharged from [facility] hospital on oral antibiotics doxycycline and cefdinir for bacterial pneumonia. Pt was given a 14 day script of this when he was most recently seen and has been taking twice a day. He refuses to take doxycycline due to nausea. Pt is under the impression he needs to continue with Cefdinir detention since this is "the only thing that has helped me breath." I did try and discuss pneumonia with the patient and why he feels better with the antibiotic in regards to infection and breathing. If patient is to continue this, please follow up. Thank you. documented in this encounter Plan of Treatment Upcoming Encounters Date Type Department Care Team (Late st Contact Info) Description 07/25/2024 11:30 AM EDT Office Visit Hematology/[place] [address] [place] [phone] Jarod Ureña MD [address] [place] [address] 08/03/2024 2:00 PM EDT Imaging Radiology [address], [place] [address] [place] [phone] 08/10/2024 11:30 AM EDT Laboratory Laboratory [place] [address] [phone] [place] [address] 08/10/2024 12:00 PM EDT Office Visit Hematology/[place] [phone] Maria Esther Mccullough CRNP [address] [facility] [place] [address] 08/10/2024 12:30 PM EDT Hem/Onc Treatment Hematology/Oncology Treatment, [place] [address] [place] [phone] Park, Chair 6 Hem Onc Scenery [address] [place] [address] 08/15/2024 1:00 PM EDT Office Visit Pulmonary Medicine, [facility] [address] [place] [address] Ruddy Hitchcock MD [address] [facility] [place] [address] Scheduled Procedures Name Priority Associated Diagnoses Date/Ti [...] this encounter Medical Devices Implanted Type Area Sound Engineering Technician Device Identifier Shelf Expiration Date Model / Serial / Lot Mesh Prolite Preshp 2x4in - [id number] Implanted:Qty: 1 on 03/29/2012 at [facility] Right: Groin [employer] [facility] 07/17/2016 [id number] / [id number] / [id number] documented as of this encounter Care Teams Ignition Specialist Relationship Specialty Start Date End Date Sylvester Renee MD [address] [place] [address], [place] [address] PCP - General Internal Medicine 06/12/24 documented as of this encounter
--- OUTSIDE RECORDS SUMMARY | 2024-07-26 14:53 | External Medical Summary | Summary of Care ---
Author Name Unknown Organization [facility] Address [address] [place] [address] Phone [phone] Care Team Providers Care Pickling Tank Operator Name Role Phone Sylvester Renee MD Primary Care Provider + Reason for Visit * Reason Onset Date Comments Appointment 07/20/2024 Encounter Details Date Type Department Care Team (Late st Contact Info) Description 07/20/2024 Telephone Hematology/Oncology [facility] [address] [place] [address] Jarod Ureña MD [address] [place] [facility] [place] [address] Appointment Allergies Active Allergy Reactions Criticality Noted [...] 05/24/2014: diminutive colon polyp transverse colon at [facility], repeat 5 years 12/31/2009: 3 polyps removed [...] Renee for HD. He has been to [facility] the past month for pneumonia, most recently given a 14 day supply of Cefdinir. Pulm- please reschedule patient for follow up with Dr. Naldo Hitchcock/Dr. Renee- Patient was recently discharged from [facility] hospital on oral antibiotics doxycycline and cefdinir for bacterial pneumonia. Pt was given a 14 day script of this when he was most recently seen and has been taking twice a day. He refuses to take doxycycline due to nausea. Pt is under the impression he needs to continue with Cefdinir fdc since this is "the only thing that [...] Visit Hematology/[place] [phone] Jarod Ureña MD [address] [place] [address] 08/03/2024 2:00 PM EDT Imaging Radiology [address], [place] [address] [place] [address] 08/10/2024 11:30 AM EDT Laboratory Laboratory [place] [address] [phone] [place] [address] 08/10/2024 12:00 PM EDT Office Visit Hematology/[place] [phone] Maria Esther Mccullough CRNP [address] [facility] [place] [address] 08/10/2024 12:30 PM EDT Hem/Onc Treatment Hematology/Oncology Treatment, [place] [address] [place] [phone] Park, Chair 6 Hem Onc Scenery [address] [place] [address] 08/15/2024 1:00 PM EDT Office Visit Pulmonary Medicine, [facility] [address] [place] [address] Ruddy Hitchcock MD [address] [facility] [place] [id number] Scheduled Procedures Name Priority Associated Diagnoses Date/Ti [...] this encounter Medical Devices Implanted Type Area Commercial Lawn Specialist Device Identifier Shelf Expiration Date Model / Serial / Lot Mesh Prolite Preshp 2x4in - [id number] Implanted:Qty: 1 on 03/29/2012 at [facility] Right: Groin [employer] [facility] 07/17/2016 [id number] / [id number] / [id number] documented as of this encounter Care Teams Pickling Tank Operator Relationship Specialty Start Date End Date Sylvester Renee MD [address] [place] [address], [place] [address] PCP - General Internal Medicine 06/12/24 documented as of this encounter
--- OUTSIDE RECORDS SUMMARY | 2024-07-26 14:53 | External Medical Summary | Summary of Care ---
Author Name Unknown Organization [facility] Address [address] [place] [address] Phone [phone] Care Team Providers Care Manager Book Name Role Phone Sylvester Renee MD Primary Care Provider + Reason for Visit * Reason Onset Date Comments Appointment 07/20/2024 Encounter Details Date Type Department Care Team (Late st Contact Info) Description 07/20/2024 Telephone Hematology/Oncology [facility] [address] [place] [address] Jarod Ureña MD [address] [place] [facility] [place] [address] Appointment Allergies Active Allergy Reactions Criticality Noted [...] Renee for HD. He has been to [facility] the past month for pneumonia, most recently given a 14 day supply of Cefdinir. Pulm- please reschedule patient for follow up with Dr. Naldo Hitchcock/Dr. Renee- Patient was recently discharged from [facility] hospital on oral antibiotics doxycycline and cefdinir for bacterial pneumonia. Pt was given a 14 day script of this when he was most recently seen and has been taking twice a day. He refuses to take doxycycline due to nausea. Pt is under the impression he needs to continue with Cefdinir senior care since this is "the only thing that [...] Visit Hematology/[place] [phone] Jarod Ureña MD [address] [place] [address] 08/03/2024 2:00 PM EDT Imaging Radiology [address], [place] [address] [place] [address] 08/10/2024 11:30 AM EDT Laboratory Laboratory [place] [address] [phone] [place] [address] 08/10/2024 12:00 PM EDT Office Visit Hematology/[place] [phone] Maria Esther Mccullough CRNP [address] [facility] [place] [address] 08/10/2024 12:30 PM EDT Hem/Onc Treatment Hematology/Oncology Treatment, [place] [address] [place] [phone] Park, Chair 6 Hem Onc Scenery [address] [place] [address] 08/15/2024 1:00 PM EDT Office Visit Pulmonary Medicine, [facility] [address] [place] [address] Ruddy Hitchcock MD [address] [facility] [place] [address] Scheduled Procedures Name Priority Associated Diagnoses Date/Ti [...] this encounter Medical Devices Implanted Type Area Stud Sheep Farmer Device Identifier Shelf Expiration Date Model / Serial / Lot Mesh Prolite Preshp 2x4in - [id number] Implanted:Qty: 1 on 03/29/2012 at [facility] Right: Groin [employer] 07/17/2016 [id number] / [id number] / [id number] documented as of this encounter Care Teams Manager Book Relationship Specialty Start Date End Date Sylvester Renee MD [address] [place] [address], [place] [address] PCP - General Internal Medicine 06/12/24 documented as of this encounter
--- OUTSIDE RECORDS SUMMARY | 2024-07-26 14:53 | External Medical Summary | Summary of Care ---
Author Name Unknown Organization [facility] Address [address] [place] [address] Phone [phone] Care Team Providers Care Improvement Nurse Name Role Phone Sylvester Renee MD Primary Care Provider + Reason for Visit * Reason Onset Date Comments Medical Records Request 07/21/2024 Encounter Details Date Type Department Care Team (Late st Contact Info) Description 07/21/2024 Telephone General Internal Medicine [facility] [address] [place] [address] Sylvester Renee MD [address] [place] [address] Medical Records Request Allergies Active Allergy Reactions Criticality Noted Date [...] before bedtime. 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 30 Tablet 07/21/19 25 Active oxyCODONE HCl 5 MG Oral [...] 05/24/2014: diminutive colon polyp transverse colon at [facility], repeat 5 years 12/31/2009: 3 [...] encounter Miscellaneous Notes * Telephone Encounter - John Jarrett OSA - 07/21/2024 9:18 AM EDT Record Request received from [facility]. Request forwarded to HIM ([phone]) via IO. documented in this encounter Plan of Treatment Upcoming Encounters Date Type Department Care Team (Late st Contact Info) Description 07/25/2024 11:30 AM EDT Office Visit Hematology/Oncology [facility] [place] [address] [place] [phone] Jarod Ureña MD 200 [facility] [place] [address] 08/03/2024 2:00 PM EDT Imaging Radiology [address] [place] [address] 08/10/2024 11:30 AM EDT Laboratory Laboratory [facility] [place] [address] [place] [phone] Zandra Lab [facility] [address] [facility] [place] [address] 08/10/2024 12:00 PM EDT Office Visit Hematology/Oncology [facility] [place] [address] [place] [phone] Maria Eshter Mccullough, MICHAEL [address] [place], [place] [address] [address] 08/10/2024 12:30 PM EDT Hem/Onc Treatment Hematology/Oncology Treatment, [place] [address] [place] [phone] Zandra, Chair 6 Hem On[address] [place] [address] 08/15/2024 1:00 PM EDT Office Visit Pulmonary Medicine, [facility] [address] [place] [phone] Ruddy Hitchcock MD [address] [place] [address] Scheduled Procedures Name Priority Associated Diagnoses Date/Ti [...] this encounter Medical Devices Implanted Type Area Profiler Hand Device Identifier Shelf Expiration Date Model / Serial / Lot Mesh Prolite Preshp 2x4in - [id number] Implanted:Qty: 1 on 03/29/2012 at [facility] Right: Groin [facility] 07/17/2016 [id number] / [id number] / [id number] documented as of this encounter Care Teams Improvement Nurse Relationship Specialty Start Date End Date Sylvester Renee MD [address] [place] [address] PCP - General Internal Medicine 06/12/24 documented as of this encounter
--- OUTSIDE RECORDS SUMMARY | 2024-07-26 14:53 | External Medical Summary | Summary of Care ---
Author Name Unknown Organization [facility] Address [address] [place] [address] Phone [phone] Care Team Providers Care Childcare Provider Name Role Phone Sylvester Renee MD Primary Care Provider + Reason for Visit * Reason Onset Date Comments Appointment 07/25/2024 Niranjan Encounter Details Date Type Department Care Team (Late st Contact Info) Description 07/25/2024 Telephone Hematology/Oncology [facility] 200 [facility] [place] [address] Jarod Ureña MD 200 [place] [address] Appointment (Niranjan) Allergies Active Allergy Reactions Criticality [...] diminutive colon polyp transverse colon at [facility], repeat 5 years 12/31/2009: 3 polyps removed [...] 07/27/2024 9:00 AM EDT Office Visit Hematology/Oncology [facility] [place] [address] [place] [phone] Jarod Ureña MD [address] [place] [address] 08/03/2024 2:00 PM EDT Imaging Radiology [address] [place] [phone] 08/10/2024 11:30 AM EDT Laboratory Laboratory [facility] [place] [address] [place] [phone] Zandra, Lab [facility] 200 [facility] [address] [facility] [place] [address] 08/10/2024 12:00 PM EDT Office Visit Hematology/Oncology [facility] [place] [address] [place] [phone] Maria Esther Mccullough, MICHAEL [address] [facility] [place] [address] 08/10/2024 12:30 PM EDT Hem/Onc Treatment Hematology/Oncology Treatment, [place] [address] [place] [address] Zandra, Chair 6 Hem Onc [facility] 200 [facility] [place] [address] 08/15/2024 1:00 PM EDT Office Visit Pulmonary Medicine, [facility] [address] [place] [phone] Ruddy Hitchcock MD [address] [place] [id number] Scheduled Procedures Name Priority Associated Diagnoses Date/Ti [...] this encounter Medical Devices Implanted Type Area Confectionery Laboratory Manager Device Identifier Shelf Expiration Date Model / Serial / Lot Mesh Prolite Preshp 2x4in - [id number] Implanted:Qty: 1 on 03/29/2012 at OR [facility] Right: Groin [facility] 07/17/2016 [id number] / [id number] / [id number] documented as of this encounter Care Teams Childcare Provider Relationship Specialty Start Date End Date Sylvester Renee MD 200 [place] [address] PCP - General Internal Medicine 06/12/24 documented as of this encounter
--- OUTSIDE RECORDS SUMMARY | 2024-07-26 14:53 | External Medical Summary | Summary of Care ---
Author Name Unknown Organization [facility] Address [address] [place] [address] Phone [phone] Care Team Providers Care Central Supply Supervisor Name Role Phone Sylvester Renee MD Primary Care Provider + Reason for Visit * Reason Comments Medication Administration Vit B12 Encounter Details Date Type Department Care Team (Latest Contact Info) Description 07/10/2024 2:00 PM EDT Immunization/ Injection Hematology/Oncology Treatment, [address] [address] Zandra, Chair [address] [address] Malignant neoplasm of lower lobe of right lung (HCC)*; Metastasis to bone (HCC); Encounter for antineoplastic chemotherapy Allergies Active Allergy Reactions Criticality Noted Date [...] the morning and 1 Capsule before bedtime. Do all this for 14 days. 28 Capsule 06/30/19 25 025 Discontin ued(Refil l) oxyCODONE HCl 5 MG Oral Tablet (Oxy [...] Tablet 07/08/19 25 025 Discontin ued(Refil l) Morphine Sulfate ER 15 MG Oral Tablet Extended Release (MS Contin)Indicati ons:Malignant neoplasm of lower lobe of right lung (HCC),Metastasi s to bone (HCC) Take 1 Tablet by mouth in the morning and 1 Tablet before bedtime. 60 Tablet 07/08/19 25 025 Discontin ued(Patie nt preferenc e/discont inuation) documented as of this encounter (statuses as [...] diminutive colon polyp transverse colon at [facility], repeat 5 years 12/31/2009: 3 polyps [...] f ile documented as of this encounter Nursing Notes * Kassandra Cintron, RN - 07/10/2024 1:21 PM EDT Exam room 2, Vit B12. Injection administered per order; pt tolerated well. documented in this encounter Plan of Treatment Upcoming Encounters Date Type Department Care Team (Late st Contact Info) Description 08/03/2024 2:00 PM EDT Imaging Radiology [address] [place] [phone] 08/10/2024 11:30 AM EDT Laboratory Laboratory [facility] [place] [address] [place] [phone] Zandra Lab [facility] [address] [facility] [place] [address] 08/10/2024 12:00 PM EDT Office Visit Hematology/Oncology [facility] [place] [address] [place] [phone] Maria Esther Mccullough CRNP [address] [facility] [place] [address] 08/10/2024 12:30 PM EDT Hem/Onc Treatment Hematology/Oncology Treatment, [place] [address] [place] [phone] Zandra, Chair 6 Hem Onc [facility] 200 [facility] [place] [address] 08/15/2024 1:00 PM EDT Office Visit Pulmonary Medicine, [facility] [address] [place] [address] Ruddy Hitchcock MD [address] [place] [id number] Scheduled Procedures Name Priority Associated Diagnoses Date/Ti [...] this encounter Medical Devices Implanted Type Area Seo Specialist Device Identifier Shelf Expiration Date Model / Serial / Lot Mesh Prolite Preshp 2x4in - [id number] Implanted:Qty: 1 on 03/29/2012 at OR [facility] Right: Groin [facility] 07/17/2016 [id number] / [id number] / [id number] documented as of this encounter Visit Diagnoses Diagnosis Malignant neoplasm of lower lobe of right lung (HCC)- Primary 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 Encounter for antineoplastic chemotherapy documented in this encounter Administered Medications Inactive Administered Medications - up to 3 most recent administrations Medication Order MAR Action Action Date Dose Rate Site Vitamin B-12 (Cyanocobalamin) inj 1,000 mcg 1,000 mcg, Intramuscular, ONCE, On Wed07/10/24 at 1400, For 1 doseIndications:Malignant neoplasm of lower lobe of right lung (HCC),Metastasis to bone (HCC),Encounter for antineoplastic chemotherapy Given 07/10/2024 1:05 PM EDT 1,000 mcg Arm Left Upper documented in this encounter Care Teams Central Supply Supervisor Relationship Specialty Start Date End Date Sylvester Renee MD 200 [place] [address] PCP - General Internal Medicine 06/12/24 documented as of this encounter
[2024-07-26] MEDS: FOLIC ACID 1 MG in SYRINGE 9.8 ML IV SCH (15:07)
[2024-07-26] MEDS: THIAMINE HCL 200 MG in SODIUM CHLORIDE 0.9% 50 ML IV SCH (15:07)
[2024-07-26] MEDS ORDERED: PROMETHAZINE 6.25 MG/50.25 ML BAG IV PRN (15:46)
[2024-07-26] MEDS ORDERED: oxyCODONE HCL IR 5 MG TAB (IMMEDIATE RELEASE) PO PRN (15:46)
[2024-07-26] MEDS ORDERED: ACETAMINOPHEN 325 MG TAB PO PRN (15:46)
[2024-07-26] MEDS ORDERED: POLYETHYLENE (MIRALAX) 17 GM PACK PO PRN (15:46)
[2024-07-26] MEDS ORDERED: DOCUSATE SODIUM 100 MG CAP PO PRN (15:46)
[2024-07-26 18:39] LABS: Appearance Urine Clear (Clear); Bilirubin Urine Negative (Negative); Blood Urine Negative (Negative); Color Urine Yellow; Glucose Urine UA Trace (Negative); Ketones Urine Negative (Negative); Leukocyte Esterase Urine Negative (Negative); Nitrite Urine Negative (Negative); Protein Urine Negative (Negative); Specific Gravity Urine 1.038 (1.000-1.030); Urobilinogen Urine Negative (Negative); pH Urine 5.5 (4.5-7.5)
[2024-07-26] MEDS ORDERED: BUDESONIDE 0.5 MG/2 ML VIAL (PULMICORT) NEB SCH (19:00)
[2024-07-26] MEDS: LORazepam 0.5 MG TAB PO PRN (20:14)
[2024-07-26] MEDS: PIPERACILLIN/TAZOBACTAM 4.5 GM/100 ML BAG IV SCH (20:14)
[2024-07-26] MEDS: FORMOTEROL 20 MCG/2 ML VIAL NEB SCH (20:30)
[2024-07-26] MEDS: SODIUM CHLOR 7% 4 ML NEB NEB SCH (20:30)
[2024-07-26] MEDS: MoRPHine SULFATE IR 15 MG TAB (IMMEDIATE RELEASE) PO PRN (21:01)
--- OUTSIDE RECORDS SUMMARY | 2024-07-27 01:10 | External Medical Summary | Summary of Care ---
Author Name Unknown Organization [facility] Address [address] [place] [address] Phone [phone] Care Team Providers Care Draw String Knotter Name Role Phone Sylvester Renee MD Primary Care Provider + Reason for Visit * Reason Onset Date Comments Appointment 07/20/2024 Encounter Details Date Type Department Care Team (Late st Contact Info) Description 07/20/2024 Telephone Hematology/Oncology [facility] [address] [place] [address] Jarod Ureña MD [address] [facility] [place] [address] Appointment Allergies Active Allergy Reactions Criticality Noted [...] 05/24/2014: diminutive colon polyp transverse colon at [facility], repeat 5 years 12/31/2009: 3 polyps removed [...] encounter Miscellaneous Notes * Telephone Encounter - Maylin Yeung OSA - 07/26/2024 11:27 AM EDT LMOM 07/26 * Telephone Encounter - Barrera Chambers RN - 07/20/2024 2:07 PM EDT Internal Med- please schedule patient for follow up with Dr. Renee for HD. He has been to [facility] the past month for pneumonia, most recently given a 14 day supply of Cefdinir. Pulm- please reschedule patient for follow up with Dr. Naldo Hitchcock/Dr. Renee- Patient was recently discharged from [facility] hospital on oral antibiotics doxycycline and cefdinir for bacterial pneumonia. Pt was given a 14 day script of this when he was most recently seen and has been taking twice a day. He refuses to take doxycycline due to nausea. Pt is under the impression he needs to continue with Cefdinir predatory animal exterminator since this is "the only thing that [...] 07/27/2024 9:00 AM EDT Office Visit Hematology/Oncology [facility] [place] [address] [place] [phone] Jarod Ureña MD [address] [place] [id number] 08/03/2024 2:00 PM EDT Imaging Radiology [address], [place] [address] [place] [id number] 08/10/2024 11:30 AM EDT Laboratory Laboratory [facility] Zandra [place] [address] [phone] Zandra, Lab Scenery [address] [facility] [place] [address] 08/10/2024 12:00 PM EDT Office Visit Hematology/Oncology [facility] [place] [address] [place] [phone] Maria Esther Mccullough, MICHAEL [address], [place] [id number] 08/10/2024 12:30 PM EDT Hem/Onc Treatment Hematology/Oncology Treatment, [place] [address] [place] [id number] Zandra, Chair 6 Hem Onc [facility] [address] [facility] [place] [address] 08/15/2024 1:00 PM EDT Office Visit Pulmonary Medicine, [facility] [address] [place] [phone] Ruddy [facility] [address] [facility] [id number] Scheduled Procedures Name Priority Associated Diagnoses Date/Ti [...] this encounter Medical Devices Implanted Type Area Mill Stenciler Device Identifier Shelf Expiration Date Model / Serial / Lot Mesh Prolite Preshp 2x4in - [id number] Implanted:Qty: 1 on 03/29/2012 at OR [facility] Right: Groin [employer] [facility] 07/17/2016 [id number] / [id number] / [id number] documented as of this encounter Care Teams Draw String Knotter Relationship Specialty Start Date End Date Sylvester Renee MD [address] [place] [address] PCP - General Internal Medicine 06/12/24 documented as of this encounter
--- NOTE | 2024-07-27 05:46 | Electrocardiogram Report ---
Test Reason : Blood Pressure : */* mmHG Vent. Rate : 200 BPM Atrial Rate : 208 BPM P-R Int : 98 ms QRS Dur : 68 ms QT Int : 216 ms P-R-T Axes : 264 80 72 degrees QTcB Int : 394 ms Atrial fibrillation with rapid ventricular response Nonspecific ST abnormality Abnormal ECG When compared with ECG of 25-Jul-2024 01:23, Atrial fibrillation has replaced Sinus rhythm Vent. rate has increased by 82 bpm Confirmed by Tyrone Tian ([id number]) on 07/27/2024 5:45:42 AM Referred By: REFERRED SELF Confirmed By: Tyrone Tian
[2024-07-27 06:54] LABS: Toxic Vacuolation 1+
[2024-07-27 07:19] LABS: Albumin Globulin Ratio 0.8 (0.9-2); Bilirubin,Total 0.5 mg/dl (0.2-1.0); Calcium 6.1 mg/dl (8.6-10.3); Creatinine Clr Calc Pharmacy 179.2 ml/min; Globulin 2.6 gm/dl (2.5-4.0); Potassium 3.2 mmol/L (3.5-5.1); Total Protein 4.6 gm/dl (6.0-8.3)
[2024-07-27] MEDS: ADVANCED PROBIOTIC 625 MG CAPSULE PO SCH (07:27)
[2024-07-27] MEDS: CEROVITE ADV FORMULA TAB PO SCH (07:27)
[2024-07-27 07:33] LABS: Estimated Average Glucose 148 mg/dl; Hemoglobin A1C 6.8 % (4.5-5.6)
[2024-07-27] MEDS: POTASSIUM CHLORIDE CRTAB 20 MEQ TABCR PO STA (08:20)
[2024-07-27 08:25] LABS: Mean Corpuscular Hemoglobin 26.6 pg (25.0-34.0); Mean Corpuscular Hgb Conc 32.1 g/dL (32.0-36.0); Mean Corpuscular Volume 82.9 fL (80.0-100.0); Mean Platelet Volume 10.1 fL (9.4-12.4); Platelet Count 93 K/uL (130-400); RDW Coefficient of Variation 14.8 % (11.5-14.5); Red Blood Count 2.52 M/uL (4.70-6.10)
[2024-07-27 08:38] LABS: Hematocrit (blood only) 20.9 % (42.0-52.0); Hemoglobin 6.7 g/dl (14.0-18.0); White Blood Count 1.46 K/ul (4.8-10.8)
[2024-07-27] MEDS ORDERED: SODIUM CHLORIDE 0.9% 100 ML IV PRN (08:47)
[2024-07-27 09:03] LABS: Eosinophils # (auto) 0.05 K/uL (0.00-0.50); Eosinophils % (auto) 3.4 %; Immature Granulocytes # (auto) 0.09 K/uL (0.01-0.20); Immature Granulocytes % (auto) 6.2 %; Lymphocytes # (auto) 0.41 K/uL (1.20-3.40); Lymphocytes % (auto) 28.1 %; Monocytes # (auto) 0.03 K/uL (0.11-0.59); Monocytes % (auto) 2.1 %; Neutrophils # (auto) 0.88 K/uL (1.40-6.50); Neutrophils % (auto) 60.2 %
--- NOTE | 2024-07-27 09:10 | Pulmonary Consultation ---
Date of Consultation July 27, 2024 Assessment & Plan (1) Malignant neoplasm of right lung stage 4: (2) Pancytopenia: Plan Impression: 69-year-old male with metastatic non-small cell lung cancer admitted with palpitations found to be in tachyarrhythmia status post cardioversion. His CT scan shows progression of his lung cancer with what appears to be lymphangitic spread. In addition his pulmonary artery on the left is almost completely occluded as well as the bronchus. Cannot rule out that the pulmonary infiltrates could be related to Keytruda although they appear to have been present prior to initiation of Keytruda. Recommendations: 1. Had a toshia discussion with the patient. Advised him that he has advanced non-small cell lung cancer which is not curable. He states no one has told him this before. I discussed with him that life-sustaining therapies including analisa cing him on a mechanical ventilator or performing CPR in the event of a cardiac arrest would have no impact on his malignancy and would be unlikely to change the overall quality or quantity of his life. He expressed understanding. We discussed what DNR/DNI means and would look like. He is comfortable with proceeding with changing his CODE STATUS to DO NOT INTUBATE DO NOT RESUSCITATE. 2. Recommend engagement of palliative care at this point in time. Consult will be placed. 3. The patient's current physical performance status would preclude additional chemotherapy or radiation therapy. Focusing on a symptom based management approach seems very reasonable. 4. Patient has been placed on broad-spectrum antibiotics. I am not convinced that the opacities identified on the CT scan represent an infectious etiology but nevertheless the patient is immunosuppressed and pancytopenic so completing a 5 to 7-day course of empiric antibiotics appears appropriate. Discontinue nebulized N-acetylcysteine as this can cause bronchospasm. Okay to continue nebulized budesonide and Perforomist as well as Incruse. As the airway is compromised, I do not think that nebulized hypertonic saline is going to offer him a clinical benefit. 5. Could discuss empiric large dose steroids for potential ICI toxicity however again these infiltrates were present before and I suspect they represent prog ression of lymphangitic spread of his tumor. Would hold off for now. No indication for repeat bronchoscopy. 6. The patient has nearly occluded his pulmonary artery and bronchus on that side. No indication for stenting as the blood flow through the pulmonary artery is compromised as well. Thanks for the opportunity of participating the care of this patient. Unfortunately I think most of his pulmonary problems are going to progress and be fundamentally unfixable. Focusing on goals of therapy and palliation of symptoms is most appropriate. Total time for todays visit is 55 minutes which includes reviewing records prior to patient arrival, the face to face visit, as well as time to record documentation after patient departure including coordination of care with other specialists and providers. This is critical care time as the patient had end-of-life discussions and is at risk of significant clinical decline and/or . History of Present Illness Attending Physician: Candy Luna MD History of Present Illness Asked by hospitalist to assist in evaluation management this patient with advanced stage non-small cell lung cancer admitted with shortness of breath and found to be in an atrial tachyarrhythmia requiring cardioversion in the emergency room. The patient is followed at [facility] medical oncology. The patient is a 69-year-old male with a history of tobacco abuse who was seen in the emergency room back in April. He had right-sided pneumonia. He was treated with azithromycin and cefdinir as well as prednisone. He returns to the emergency room 2 weeks later with continued cough. CT scan was obtained and showed a right perihilar density. He had a PET scan performed in May showing a hypermetabolic right hilar mass with metastases involving the pancreas peripancreatic lymph nodes muscles bones and soft tissues. He was seen in consultation by pulmonary at [facility] in June 2024. He underwent bronchoscopy with endobronchial ultrasound 06/22/2024 with washings showing malignant cells and EBUS of a 10R lymph node demonstrating non-small cell carcinoma who was referred to radiation oncology in June. It was recommended that he be sent to the emergency room given his lethargy. Patient initiated chemotherapy last week with Alimta, carboplatin, and Keytruda. Patient shortness of breath is at baseline. He has received multiple antibiotics including cefdinir, Augmentin, and doxycycline within the last month. In the emergency room he was found to have a narrow complex tachycardia that was unstable. He was cardioverted. Has been placed on oxygen and admitted to the hospitalist service. CT scan confirmed what appears to be lymphangitic spread of tumor. He was initiated on Zosyn and vancomycin. He is pancytopenic with a poor functional status. Allergies Allergy/AdvReac Type Severity Reaction Status Date / Time codeine Allergy Mild Itching Verified 07/25/24 02:01 doxycycline AdvReac Intermediate NAUSEA/VOMI Verified 07/25/24 01:56 TING Home Medications Medication Instructions Recorded Confirmed Type naproxen 500 mg tablet 500 mg PO BID PRN pain #14 tabs 05/26/24 07/26/24 Rx albuterol sulfate 90 mcg/actuation 2 puff inhalation Q4H PRN Wheezing 07/03/24 07/26/24 History aerosol inhaler fluticasone 250 mcg-salmeterol 50 1 inh inhalation BID 07/03/24 07/26/24 History mcg/dose blistr powdr for inhalation dexamethasone 4 mg tablet 4 mg PO .as directed 07/11/24 07/26/24 History folic acid 1 mg tablet 1 mg PO DAILY 07/11/24 07/26/24 History lorazepam 0.5 mg tablet 0.5 mg PO Q8H PRN Anxiety 07/11/24 07/26/24 History morphine 15 mg immediate release 15 mg PO BID PRN Pain 07/11/24 07/26/24 History tablet ondansetron HCl 8 mg tablet 8 mg PO Q8H PRN NAUSEA/VOMITING 07/11/24 07/26/24 History oxycodone 5 mg tablet 5 mg PO Q4H PRN Severe Pain (Scale 07/11/24 07/26/24 History Score 7-10) prochlorperazine maleate 10 mg 10 mg PO Q6H PRN NAUSEA/VOMITING 07/11/24 07/26/24 History tablet (Compazine) cefdinir 300 mg capsule 300 mg PO BID 10 days #20 caps 07/18/24 07/26/24 Rx fluconazole 100 mg tablet 100 mg PO QAM 07/25/24 07/26/24 History docusate sodium 100 mg capsule 100 mg PO BID PRN Constipation 07/26/24 07/26/24 History Patient History Medical History Femur fracture, left In past Benign neoplasm of colon Arthritis COPD (chronic obstructive pulmonary disease) Anxiety Lung cancer, primary, with metastasis from lung to other site Lung cancer Chronic back pain Surgical History History of surgery Both lower legs; H/O inguinal hernia repair H/O colonoscopy S/P bronchoscopy with biopsy EBUS on 06/22/24 Family History Father , 95yo Pacemaker Hypertension Diabetes Colorectal cancer Mother , 58yo Lung cancer Brother Medical history unknown Sister Cancer Pt uncertain of type Sister Cancer Pt uncertain of type of cancer Sister Cancer Pt uncertain of type of cancer Sister Drowning Social History Smoking Status: Former smoker Tobacco Type: Cigarettes Cigarettes Per Day: 1 PPD x 53 yrs; Second Hand Exposure: No; Do You Dip or Chew Tobacco: No; Hx Alcohol Use: No Hx Substance Use: No Preferred Language: Icelandic Communication Ability: Effective Molding Associate Required: No Beliefs That Will Affect Care: None marital status: Single Current Living Situation: Alone current occupational status: 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 No additions or deletions Physical Exam Constitutional: + ill appearing and + thin Eyes: PERRL, conjunctivae normal, anicteric sclerae ENMT: external ear and nose normal, oropharynx normal Neck: trachea midline, no thyromegaly Respiratory: no respiratory distress, no labored breathing, no cough and not tachypneic Auscultation: + diminished lung sounds and + rhonchi Cardiovascular: Rate/Rhythm: regular rate and regular rhythm Heart Sounds: normal S1 and normal S2 Results & Data Results & Data Vital Signs (Past 12 Hours) Vital Signs Temp Pulse Pulse Resp BP Pulse Ox O2 Del Method 07/27/24 08:25 Nasal Cannula 07/27/24 08:25 89 07/27/24 08:05 36.8 C 94 H 22 118/64 97 Nasal Cannula 07/27/24 07:46 96 H 18 97 Nasal Cannula 07/27/24 02:26 36.5 C 91 H 18 100/65 99 Nasal Cannula 07/26/24 23:52 36.7 C 99 H 18 117/69 96 Nasal Cannula O2 Flow Rate 07/27/24 08:25 3 07/27/24 08:25 07/27/24 08:05 3 07/27/24 07:46 3 07/27/24 02:26 3 07/26/24 23:52 3 Critical Care Results & Data Vital Signs (Past 12 Hours) Vital Signs Temp Pulse Pulse Resp BP Pulse Ox O2 Del Method 07/27/24 08:25 Nasal Cannula 07/27/24 08:25 89 07/27/24 08:05 36.8 C 94 H 22 118/64 97 Nasal Cannula 07/27/24 07:46 96 H 18 97 Nasal Cannula 07/27/24 02:26 36.5 C 91 H 18 100/65 99 Nasal Cannula 07/26/24 23:52 36.7 C 99 H 18 117/69 96 Nasal Cannula O2 Flow Rate 07/27/24 08:25 3 07/27/24 08:25 07/27/24 08:05 3 07/27/24 07:46 3 07/27/24 02:26 3 07/26/24 23:52 3 Lab & Micro Results (Past 24 Hours) RBC 2.52 M/uL (4.70-6.10) L 07/27/24 WBC 1.46 K/ul (4.8-10.8) L 07/27/24 Hgb 6.7 g/dl (14.0-18.0) L* 07/27/24 Hct 20.9 % (42.0-52.0) L* 07/27/24 MCV 82.9 fL (80.0-100.0) 07/27/24 MCH 26.6 pg (25.0-34.0) 07/27/24 MCHC 32.1 g/dL (32.0-36.0) 07/27/24 RDW Standard Deviation 45.0 fL (36.4-46.3) 07/27/24 RDW Coefficient of Variation 14.8 % (11.5-14.5) H 07/27/24 Plt Count 93 K/uL (130-400) L 07/27/24 MPV 10.1 fL (9.4-12.4) 07/27/24 Neutrophils (%) (Auto) 60.2 % 07/27/24 Lymphocytes (%) (Auto) 28.1 % 07/27/24 Monocytes # (Auto) 0.03 K/uL (0.11-0.59) L 07/27/24 Eosinophils # (Auto) 0.05 K/uL (0.00-0.50) 07/27/24 Immature Granulocyte % (Auto) 6.2 % 07/27/24 Neutrophils # (Auto) 0.88 K/uL (1.40-6.50) L* 07/27/24 Lymphocytes # (Auto) 0.41 K/uL (1.20-3.40) L 07/27/24 Monocytes # (Auto) 0.03 K/uL (0.11-0.59) L 07/27/24 Eosinophils # (Auto) 0.05 K/uL (0.00-0.50) 07/27/24 Basophils # (Auto) 0.00 K/uL (0.00-0.20) 07/27/24 Immature Granulocyte # (Auto) 0.09 K/uL (0.01-0.20) 5 Toxic Vacuolation 1+ 07/26/24 Na 136 mmol/L (136-145) 07/27/24 K 3.2 mmol/L (3.5-5.1) L 07/27/24 Cl 102 mmol/L (98-107) 07/27/24 CO2 31 mmol/L (21-32) 07/27/24 Anion Gap 3 (3-11) 07/27/24 BUN 14 mg/dl (6-23) 07/27/24 Creatinine 0.40 mg/dl (0.6-1.4) L 07/27/24 BUN/Creatinine Ratio 35.0 (10-20) H 07/27/24 Glu 120 mg/dl (70-99(Fasting)) H 07/27/24 Ca 6.1 mg/dl (8.6-10.3) L 07/27/24 Total Bilirubin 0.5 mg/dl (0.2-1.0) 07/27/24 Direct Bilirubin 0.1 mg/dl (0-0.2) 07/26/24 AST 14 U/L (13-39) 07/27/24 ALT 12 U/L (7-52) 07/27/24 Alkaline Phosphatase 130 U/L (34-104) H 07/27/24 TP 4.6 gm/dl (6.0-8.3) L 07/27/24 Albumin 2.0 gm/dl (3.4-5.0) L 07/27/24 Globulin 2.6 gm/dl (2.5-4.0) 07/27/24 Albumin/Globulin Ratio 0.8 (0.9-2) L 07/27/24 Mg 2.0 mg/dl (1.7-2.4) 07/27/24 05:23 Calcium Level 6.1 mg/dl (8.6-10.3) L 07/27/24 05:23 Venous Blood pH 7.35 (7.36-7.41) L 07/26/24 11:21 Venous Blood Partial Pressure CO2 52 mmHg (38-50) H 07/26/24 11 :21 Venous Blood Partial Pressure O2 20 mmHg 07/26/24 11:21 Venous Blood HCO3 29 mmol/L 07/26/24 11:21 Venous Blood Base Excess 2.1 mEq/L 07/26/24 11:21 Venous Blood Oxygen Saturation < 60.0 % 07/26/24 11:21 Diagnostic Findings (Past 24 Hours) Chest X-Ray 07/26/24 10:37 XR chest 1V portable CLINICAL HISTORY: Sepsis COMPARISON STUDY: 07/25/2024 FINDINGS: Single view portable chest demonstrates no significant interval change. Continues to be pronounced airspace opacity in the right lung associated with left costophrenic angle blunting and thickening of the minor fissure indicating probable exudative effusion. The left lung is grossly clear. Heart size and pulmonary vascularity are unremarkable. There is no pneumothorax. IMPRESSION: No interval improvement in the right lung infiltrate consistent with pneumonia. Slightly enlarging right pleural effusion. ACT 112: Negative or not required by law. Electronically signed by: Siomara Sofia M.D. 07/26/2024 11:32 AM Chest CTA 07/26/24 10:53 CT angio chest PE protocol CT DOSE: 756.16 mGy.cm HISTORY: PE. TECHNIQUE: Multiple CTA images of the chest were obtained after the intravenous administration of 60 ml Optiray. Coronal and sagittal MIPS were obtained from the axial data set and were submitted for review. All measurements were obtained according to NASCET criteria. A dose lowering technique was utilized adhering to the principles of ALARA. COMPARISON STUDY: Chest x-ray earlier today and PET CT of 06/13/2024 FINDINGS: Right hilar mass measures approximately 5 cm, grossly stable. There is increased reticular and patchy consolidation throughout the right middle lobe and a large portion of the upper to mid right lower lobe which has morphology suggesting metastatic spread of tumor with possible superimposed pneumonia. There is an increased small right pleural effusion and increased adjacent consolidation at the right lung base, pneumonia, tumor, or atelectasis. There is stable moderate emphysema. There is no pneumothorax. There is near occlusion of the right mainstem bronchus with secretions or tumor. The right hilar mass severely narrows the right main pulmonary artery. Evaluation of the tiny distal pulmonary arteries is limited. No pulmonary embolism seen. No pericardial effusion. There is an interval osseous destructive lesion posteriorly and laterally at the left ninth rib. There is an interval osseous destructive lesion laterally at the right seventh rib laterally with superimposed nondisplaced fracture. There are lucent osseous lesions at the T5 and T10 vertebral bodies. There are mild subacute-appearing vertebral body compression fractures at those levels. There is an osseous destructive lesion at the sternum. Findings are consistent with p rogressive osseous metastatic disease. IMPRESSION: 1. No pulmonary embolism seen. 2. Near obstruction of the right mainstem bronchus with secretions or tumor. 3. Progressive tumor at the right lung with possible superimposed pneumonia. Increased small right pleural effusion. 4. Progressive osseous metastatic disease. 5. Otherwise as described. ACT 112: Negative or not required by law. The above report was generated using voice recognition software. It may contain grammatical, syntax or spelling errors. Electronically signed by: Scott Armenta M.D. 07/26/2024 12:44 PM I & O Totals 24 Hours 07/26/24 07/27/24 07/28/24 06:59 06:59 06:59 Intake Total 2650.516 / 2650.516 1071 / 1071 Output Total 1100 / 1100 400 / 400 Balance 1550.516 / 1550.516 671 / 671 Cumulative 07/26/24 10:09 thru 07/27/24 09:06 Intake Total 3721.516 Output Total 1500 Balance 2221.516 RT Ventilator Mngmt (Last Documented) Ventilator Ordered Settings Respiratory Rate 22 07/27/24 08:05 Ventilator - PT Measurements Respiratory Rate 22 PG Care Time/CCT Total # of Minutes Spent Total Time Spent with Patient: Total time spent is greater than 50% in coordination of care (as documented) at patient's floor/unit and/or counseling patient: Coding Level of Care Code 40293 CRITICAL CARE 1ST 30-74M Diagnoses Malignant neoplasm of right lung stage 4 C34.91 Pancytopenia D61.818
--- NOTE | 2024-07-27 09:31 | Pharmacy Report ---
Pharmacy PK ABX Note - Date of Service July 27, 2024 - Assessment and Plan Assessment * 69 year old M receiving vancomycin and Zosyn for treatment of pneumonia. She was recently diagnosed with non-small cell lung CA with bone metastasis--Chemotherapy initiated 07/20/24. * CTA chest showed progressive tumor at right lung with possible superimposed pneumonia * On admit, wbc 2.69, lactate 3, procalcitonin 0.65, and afebrile. * Blood cultures x 2 from 07/26 are pending Day # 2 of antimicrobial therapy. Plan Vancomycin * Loading dose: 1500 mg IV x 1 on 07/26 * Maintenance dose: 1500 mg IV every 12 hours * Regimen is predicted to achieve target AUC/JESSY of 400-600 mg/L.hr * Vancomycin level will be ordered in the next few days as clinically warranted. Pharmacy will continue to follow and will adjust dose/frequency as necessary. Thank you. Pharmacy has transitioned to AUC monitoring for vancomycin. AUC/JESSY is the preferred PK/PD target and is associated with decreased risk of nephrotoxicity compared to traditional trough targets.
--- NOTE | 2024-07-27 09:53 | Cardiology Progress Note ---
Date of Service July 27, 2024 Assessment & Plan (1) Narrow complex tachycardia: Plan: Review rhythm strips demonstrates paroxysmal atrial fibrillation flutter as well as multifocal atrial tachycardia (2) Malignant neoplasm of right lung stage 4: Plan 69-year-old male with metastatic lung cancer with near obstruction of the right mainstream bronchus by CT and bony metastasis presents with acute dyspnea tachy palpitations and persistent hemoptysis. Intermittent hypoxia, possible pneumonia Rhythm on presentation narrow complex likely A-fib flutter with rapid response initially treated with synchronized cardioversion with return to sinus tachycardia only the lapsed back into atrial tachycardia flutter versus multifocal atrial tachycardia. Has responded now to IV diltiazem and is maintaining sinus rhythm. Echocardiogram with preserved wall motion 1. Paroxysmal A-fib flutter/multifocal atrial tachycardia secondary to acute illness, mainstem bronchus obstruction, hypoxia. Anticoagulation contraindicated Continue IV diltiazem with consideration to switch to oral calcium channel versus beta-srinivas. High likelihood of return given underlying pathology 07/27/2024 1. Paroxysmal atrial fibrillation flutter/multifocal atrial tachycardia secondary to acute illnesses: Remained in sinus rhythm on IV diltiazem Will transition to oral diltiazem as blood pressure allows. Anticoagulation contraindicated due to hemoptysis High likelihood of return of atrial arrhythmias Would supplement potassium avoid hypoxia Admission and Anticipated Discharge Date Admission Date: July 26, 2024 Subjective Patient seen and examined, chart, medications, telemetry reviewed. Remained in sinus rhythm overnight, heart rate 80s and 90s. Generalized malaise this morning poor appetite and poor p.o. intake but able to take oral medications Review of Systems Review of Systems: All systems reviewed & are unremarkable except as noted in Subjective Physical Exam Constitutional: + ill appearing and + thin Eyes: PERRL, conjunctivae normal, anicteric sclerae ENMT: external ear and nose normal, oropharynx normal Neck: trachea midline, no thyromegaly Respiratory: normal respiratory effort, lungs clear to auscultation Cardiovascular: Rate/Rhythm: regular rate and regular rhythm Heart Sounds: normal S1 and normal S2 Gastrointestinal (Abdomen): normal bowel sounds, soft, nontender, no hepatosplenomegaly Results & Data Vital Signs (Past 12 Hours) Vital Signs Temp Pulse Pulse Resp BP Pulse Ox O2 Del Method 07/27/24 08:25 Nasal Cannula 07/27/24 08:25 89 07/27/24 08:05 36.8 C 94 H 22 118/64 97 Nasal Cannula 07/27/24 07:46 96 H 18 97 Nasal Cannula 07/27/24 02:26 36.5 C 91 H 18 100/65 99 Nasal Cannula 07/26/24 23:52 36.7 C 99 H 18 117/69 96 Nasal Cannula O2 Flow Rate 07/27/24 08:25 3 07/27/24 08:25 07/27/24 08:05 3 07/27/24 07:46 3 07/27/24 02:26 3 07/26/24 23:52 3 Laboratory Results Laboratory Results - last 24 hr 07/26/24 07/26/24 07/26/24 10:52 10:53 11:21 WBC 2.69 L RBC 3.57 L Hgb 9.7 L Hct 29.4 L MCV 82.4 MCH 27.2 MCHC 33.0 RDW Std Deviation 43.2 RDW Coeff of Hood 14.6 H Plt Count 155 MPV 10.7 Immature Gran % (Auto) 10.0 Neut % (Auto) 71.5 Lymph % (Auto) 16.7 Evans % (Auto) 0.7 Eos % (Auto) 0.4 Baso % (Auto) 0.7 Neut # (Auto) 1.92 Lymph # (Auto) 0.45 L Evans # (Auto) 0.02 L Eos # (Auto) 0.01 Baso # (Auto) 0.02 Immature Gran # (Auto) 0.27 H Absolute Nucleated RBC Nucleated RBC % (auto) Neutrophils % (Manual) Band Neutrophils % Lymphocytes % (Manual) Prolymphocyte % Reactive Lymphs % (Man) Monocytes % (Manual) Eosinophils % (Manual) Basophils % (Manual) Metamyelocytes % (Man) Myelocytes % (Man) Promyelocytes % (Man) Blast Cells % (Manual) Plasma Cell % (Manual) Other Cells % Nucleated RBC % Neutrophils # (Manual) Band Neutrophils # Total Absolute Neuts Lymphocytes # (Manual) Prolymphocyte # Reactive Lymphs # Total Abs Lymphocytes Monocytes # (Manual) Eosinophils # (Manual) Basophils # (Manual) Metamyelocytes # (Man) Myelocytes # (Manual) Promyelocytes # (Man) Blast Cells # (Man) Plasma Cell # (Manual) Other Cells # Nucleated RBCs # (Man) Hypersegmented Neuts Hyposegmented Neuts Hypogranular Neuts Large Granular Lymphs # Lrg Granular Lymphs Hairy Cells Smudge Cells Toxic Granulation Toxic Vacuolation 1+ Dohle Bodies Dalia Rods Platelet Estimate Normal Hypogranular Platelets Giant Platelets Platelet Satelliting RBC Morphology Polychromasia Hypochromasia Poikilocytosis Basophilic Stippling Anisocytosis Microcytosis Macrocytosis Spherocytes Pappenheimer Bodies Sickle Cells Target Cells Tear Drop Cells Ovalocytes Stomatocytes [place] Bodies Echinocytes Acanthocytes (Spur) Rouleaux RBC Agglutinates Schistocytes Sezary Cell VBG pH 7.35 L VBG pCO2 52 H VBG pO2 20 VBG HCO3 29 VBG O2 Saturation < 60.0 VBG Base Excess 2.1 Sodium 134 L Potassium 4.3 Chloride 96 L Carbon Dioxide 30 Anion Gap 8 BUN 21 Creatinine 0.59 L Est Cr Clr Drug Dosing 125.4 eGFR 106.34 BUN/Creatinine Ratio 35.6 H Glucose 171 H POC Glucose Estimat Average Glucose Hemoglobin A1c Lactate 3.0 H* Calcium 7.1 L Magnesium 2.2 Total Bilirubin 0.7 Direct Bilirubin 0.1 AST 20 ALT 16 Alkaline Phosphatase 162 H Troponin I High Sens 8.0 D Total Protein 5.7 L Albumin 2.5 L Globulin Albumin/Globulin Ratio Procalcitonin 0.65 H Urine Color Urine Appearance Urine pH Ur Specific Bonnie Urine Protein Urine Glucose (UA) Urine Ketones Urine Blood Urine Nitrite Urine Bilirubin Urine Urobilinogen Ur Leukocyte Esterase Nasal Screen MRSA (PCR) Blood Parasites ID Blood Type O Positive Blood Type Recheck Antibody Screen NEGATIVE Crossmatch See Detail 07/26/24 07/26/24 07/26/24 13:00 16:37 Unknown WBC RBC Hgb Hct MCV MCH MCHC RDW Std Deviation RDW Coeff of [place]odo Plt Count MPV Immature Gran % (Auto) Neut % (Auto) Lymph % (Auto) Evans % (Auto) Eos % (Auto) Baso % (Auto) Neut # (Auto) Lymph # (Auto) Evans # (Auto) Eos # (Auto) Baso # (Auto) Immature Gran # (Auto) Absolute Nucleated RBC Nucleated RBC % (auto) Neutrophils % (Manual) Band Neutrophils % Lymphocytes % (Manual) Prolymphocyte % Reactive Lymphs % (Man) Monocytes % (Manual) Eosinophils % (Manual) Basophils % (Manual) Metamyelocytes % (Man) Myelocytes % (Man) Promyelocytes % (Man) Blast Cells % (Manual) Plasma Cell % (Manual) Other Cells % Nucleated RBC % Neutrophils # (Manual) Band Neutrophils # Total Absolute Neuts Lymphocytes # (Manual) Prolymphocyte # Reactive Lymphs # Total Abs Lymphocytes Monocytes # (Manual) Eosinophils # (Manual) Basophils # (Manual) Metamyelocytes # (Man) Myelocytes # (Manual) Promyelocytes # (Man) Blast Cells # (Man) Plasma Cell # (Manual) Other Cells # Nucleated RBCs # (Man) Hypersegmented Neuts Hyposegmented Neuts Hypogranular Neuts Large Granular Lymphs # Lrg Granular Lymphs Hairy Cells Smudge Cells Toxic Granulation Toxic Vacuolation Dohle Bodies Dalia Rods Platelet Estimate Hypogranular Platelets Giant Platelets Platelet Satelliting RBC Morphology Polychromasia Hypochromasia Poikilocytosis Basophilic Stippling Anisocytosis Microcytosis Macrocytosis Spherocytes Pappenheimer Bodies Sickle Cells Target Cells Tear Drop Cells Ovalocytes Stomatocytes [place] Bodies Echinocytes Acanthocytes (Spur) Rouleaux RBC Agglutinates Schistocytes Sezary Cell VBG pH VBG pCO2 VBG pO2 VBG HCO3 VBG O2 Saturation VBG Base Excess Sodium Potassium Chloride Carbon Dioxide Anion Gap BUN Creatinine Est Cr Clr Drug Dosing eGFR BUN/Creatinine Ratio Glucose POC Glucose 131 H Estimat Average Glucose Hemoglobin A1c Lactate 1.9 Calcium Magnesium Total Bilirubin Direct Bilirubin AST ALT Alkaline Phosphatase Troponin I High Sens Total Protein Albumin Globulin Albumin/Globulin Ratio Procalcitonin Urine Color Yellow Urine Appearance Clear Urine pH 5.5 Ur Specific Bonnie 1.038 H Urine Protein Negative Urine Glucose (UA) Trace H Urine Ketones Negative Urine Blood Negative Urine Nitrite Negative Urine Bilirubin Negative Urine Urobilinogen Negative Ur Leukocyte Esterase Negative Nasal Screen MRSA (PCR) Blood Parasites ID Blood Type Blood Type Recheck Antibody Screen Crossmatch 07/27/24 07/27/24 07/27/24 05:23 07:54 08:58 WBC Cancelled 1.46 L RBC Cancelled 2.52 L Hgb Cancelled 6.7 L* D Hct Cancelled 20.9 L* MCV Cancelled 82.9 MCH Cancelled 26.6 MCHC Cancelled 32.1 RDW Std Deviation Cancelled 45.0 RDW Coeff of Hood Cancelled 14.8 H Plt Count Cancelled 93 L MPV Cancelled 10.1 Immature Gran % (Auto) Cancelled 6.2 Neut % (Auto) Cancelled 60.2 Lymph % (Auto) Cancelled 28.1 Evans % (Auto) Cancelled 2.1 Eos % (Auto) Cancelled 3.4 Baso % (Auto) Cancelled 0.0 Neut # (Auto) Cancelled 0.88 L* Lymph # (Auto) Cancelled 0.41 L Evans # (Auto) Cancelled 0.03 L Eos # (Auto) Cancelled 0.05 Baso # (Auto) Cancelled 0.00 Immature Gran # (Auto) Cancelled 0.09 Absolute Nucleated RBC Cancelled Nucleated RBC % (auto) Cancelled Neutrophils % (Manual) Cancelled Band Neutrophils % Cancelled Lymphocytes % (Manual) Cancelled Prolymphocyte % Cancelled Reactive Lymphs % (Man) Cancelled Monocytes % (Manual) Cancelled Eosinophils % (Manual) Cancelled Basophils % (Manual) Cancelled Metamyelocytes % (Man) Cancelled Myelocytes % (Man) Cancelled Promyelocytes % (Man) Cancelled Blast Cells % (Manual) Cancelled Plasma Cell % (Manual) Cancelled Other Cells % Cancelled Nucleated RBC % Cancelled Neutrophils # (Manual) Cancelled Band Neutrophils # Cancelled Total Absolute Neuts Cancelled Lymphocytes # (Manual) Cancelled Prolymphocyte # Cancelled Reactive Lymphs # Cancelled Total Abs Lymphocytes Cancelled Monocytes # (Manual) Cancelled Eosinophils # (Manual) Cancelled Basophils # (Manual) Cancelled Metamyelocytes # (Man) Cancelled Myelocytes # (Manual) Cancelled Promyelocytes # (Man) Cancelled Blast Cells # (Man) Cancelled Plasma Cell # (Manual) Cancelled Other Cells # Cancelled Nucleated RBCs # (Man) Cancelled Hypersegmented Neuts Cancelled Hyposegmented Neuts Cancelled Hypogranular Neuts Cancelled Large Granular Lymphs Cancelled # Lrg Granular Lymphs Cancelled Hairy Cells Cancelled Smudge Cells Cancelled Toxic Granulation Cancelled Toxic Vacuolation Cancelled Dohle Bodies Cancelled Dalia Rods Cancelled Platelet Estimate Cancelled Hypogranular Platelets Cancelled Giant Platelets Cancelled Platelet Satelliting Cancelled RBC Morphology Cancelled Polychromasia Cancelled Hypochromasia Cancelled Poikilocytosis Cancelled Basophilic Stippling Cancelled Anisocytosis Cancelled Microcytosis Cancelled Macrocytosis Cancelled Spherocytes Cancelled Pappenheimer Bodies Cancelled Sickle Cells Cancelled Target Cells Cancelled Tear Drop Cells Cancelled Ovalocytes Cancelled Stomatocytes Cancelled [place] Bodies Cancelled Echinocytes Cancelled Acanthocytes (Spur) Cancelled Rouleaux Cancelled RBC Agglutinates Cancelled Schistocytes Cancelled Sezary Cell Cancelled VBG pH VBG pCO2 VBG pO2 VBG HCO3 VBG O2 Saturation VBG Base Excess Sodium 136 Potassium 3.2 L D Chloride 102 Carbon Dioxide 31 Anion Gap 3 BUN 14 Creatinine 0.40 L Est Cr Clr Drug Dosing 179.2 eGFR 119.58 BUN/Creatinine Ratio 35.0 H Glucose 120 H POC Glucose Estimat Average Glucose 148 Hemoglobin A1c 6.8 H Lactate Calcium 6.1 L Magnesium 2.0 Total Bilirubin 0.5 Direct Bilirubin AST 14 ALT 12 Alkaline Phosphatase 130 H Troponin I High Sens Total Protein 4.6 L D Albumin 2.0 L Globulin 2.6 Albumin/Globulin Ratio 0.8 L Procalcitonin Urine Color Urine Appearance Urine pH Ur Specific Bonnie Urine Protein Urine Glucose (UA) Urine Ketones Urine Blood Urine Nitrite Urine Bilirubin Urine Urobilinogen Ur Leukocyte Esterase Nasal Screen MRSA (PCR) Blood Parasites ID Cancelled Blood Type Blood Type Recheck Pending Antibody Screen Crossmatch 07/27/24 Unknown WBC RBC Hgb Hct MCV MCH MCHC RDW Std Deviation RDW Coeff of Hood Plt Count MPV Immature Gran % (Auto) Neut % (Auto) Lymph % (Auto) Evans % (Auto) Eos % (Auto) Baso % (Auto) Neut # (Auto) Lymph # (Auto) Evans # (Auto) Eos # (Auto) Baso # (Auto) Immature Gran # (Auto) Absolute Nucleated RBC Nucleated RBC % (auto) Neutrophils % (Manual) Band Neutrophils % Lymphocytes % (Manual) Prolymphocyte % Reactive Lymphs % (Man) Monocytes % (Manual) Eosinophils % (Manual) Basophils % (Manual) Metamyelocytes % (Man) Myelocytes % (Man) Promyelocytes % (Man) Blast Cells % (Manual) Plasma Cell % (Manual) Other Cells % Nucleated RBC % Neutrophils # (Manual) Band Neutrophils # Total Absolute Neuts Lymphocytes # (Manual) Prolymphocyte # Reactive Lymphs # Total Abs Lymphocytes Monocytes # (Manual) Eosinophils # (Manual) Basophils # (Manual) Metamyelocytes # (Man) Myelocytes # (Manual) Promyelocytes # (Man) Blast Cells # (Man) Plasma Cell # (Manual) Other Cells # Nucleated RBCs # (Man) Hypersegmented Neuts Hyposegmented Neuts Hypogranular Neuts Large Granular Lymphs # Lrg Granular Lymphs Hairy Cells Smudge Cells Toxic Granulation Toxic Vacuolation Dohle Bodies Dalia Rods Platelet Estimate Hypogranular Platelets Giant Platelets Platelet Satelliting RBC Morphology Polychromasia Hypochromasia Poikilocytosis Basophilic Stippling Anisocytosis Microcytosis Macrocytosis Spherocytes Pappenheimer Bodies Sickle Cells Target Cells Tear Drop Cells Ovalocytes Stomatocytes [place] Bodies Echinocytes Acanthocytes (Spur) Rouleaux RBC Agglutinates Schistocytes Sezary Cell VBG pH VBG pCO2 VBG pO2 VBG HCO3 VBG O2 Saturation VBG Base Excess Sodium Potassium Chloride Carbon Dioxide Anion Gap BUN Creatinine Est Cr Clr Drug Dosing eGFR BUN/Creatinine Ratio Glucose POC Glucose Estimat Average Glucose Hemoglobin A1c Lactate Calcium Magnesium Total Bilirubin Direct Bilirubin AST ALT Alkaline Phosphatase Troponin I High Sens Total Protein Albumin Globulin Albumin/Globulin Ratio Procalcitonin Urine Color Urine Appearance Urine pH Ur Specific Bonnie Urine Protein Urine Glucose (UA) Urine Ketones Urine Blood Urine Nitrite Urine Bilirubin Urine Urobilinogen Ur Leukocyte Esterase Nasal Screen MRSA (PCR) Negative Blood Parasites ID Blood Type Blood Type Recheck Antibody Screen Crossmatch
[2024-07-27] MEDS: VANCOMYCIN HCL 1,500 MG in SODIUM CHLORIDE 0.9% 500 ML IV SCH (10:02)
[2024-07-27] MEDS: dilTIAZem HCL 180 MG CAPCR PO SCH (10:28)
[2024-07-27] MEDS: POTASSIUM CHLORIDE CRTAB 20 MEQ TABCR PO ONE (10:40)
[2024-07-27] MEDS: dilTIAZem HCL 125 MG in DEXTROSE 5% 100 ML IV SCH (13:10)
[2024-07-27] MEDS ORDERED: STAT IV Infusion **Titration per Protocol STA (13:22)
[2024-07-27] MEDS ORDERED: ONDANSETRON INJ 2 MG/ML 2 ML VIAL IV PRN (14:06)
[2024-07-27] MEDS: dilTIAZem HCl 5 MG/ML 5 ML VIAL IV STA (14:07)
[2024-07-27] MEDS: HYDROmorphone INJ 0.5 MG/0.5 ML SYR IV PRN (14:12)
--- NOTE | 2024-07-27 14:39 | Hospitalist Progress Note ---
Date of Service July 27, 2024 Assessment & Plan (1) Lung cancer, primary, with metastasis from lung to other site: Plan: Acute hypoxic respiratory failure secondary to 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 Has had recent chemotherapy and the condition has been deteriorating Appreciate pulmonary input and recommendation Prognosis is extremely poor Palliative care consultation was taken and the patient is going towards comfort care only Acute anemia Likely secondary to the disease process Hemoglobin dropped to 6.7 and the patient was agreeable to get blood transfusion Plan for 2 units but now it is discontinued as he chooses to be comfort care only (2) Narrow complex tachycardia: Plan: Rapid Atrial flutter Patient is 69 year old male with PMH anxiety, recently diagnosed non-small cell lung CA involving right hilar/perihilar mass encasing right mainstem bronchus, bone metastasis, COPD, history tobacco use presented to ER with increased SOB, CP, palpitations, dizziness since yesterday Upon ER presentation today found to have pulse 200, with narrow complex tachycardia. Initially given a dose of 6 mg of adenosine and then 2 mg of adenosine with appearance of flutter waves. HR up to 200's and patient ultimately cardioverted with subsequent sinus tachycardia after cardioversion. Patient again had narrow complex tachycardia at a rate of 200 about an hour after cardioversion and was started on diltiazem drip. Currently sinus rhythm with stable BP on diltiazem drip Monitor on telemetry Troponin: 8.0 Continue diltiazem drip Hold on anticoagulation at this time with h/o hemoptysis Cardiology consult. discussed with Dr Romero. Will plan to keep on diltiazem drip for now with consideration adding oral agent tomorrow appreciate cardiology input and recommendation (3) Anxiety: (4) COPD (chronic obstructive pulmonary disease): Plan: Likely has exacerbation Antibiotics were restarted and getting nebulized bronchodilator Likely to stop current aggressive management as the patient is going towards comfort care (5) Pneumonia: Plan: As above (6) Pancytopenia: Plan: Chemotherapy induced pancytopenia Neutropenic precaution for now Condition has been deteriorating and going to be only for comfort care Note from the admitting physician: Per outpatient chart review: 07/13/2023 received Zometa. 07/20/24 received Alimta, carboplatin, Keytruda with plan for palliative radiation to symptomatic bone lesion 06/13/2024 PET-CT scan: hypermetabolic right paraprotein nodule SUV of 9.6. 5.4 x 4.8 cm right hilar mass narrows the distal mainstem bronchus SUV 17.5. focal subcentimeter pancreatic body mass with SUV of 8.8. Subcentimeter peripancreatic lymph node adjacent to the pancreatic head. Multiple soft tissue metastases, 1 measuring about 1 cm within the right psoas muscle with a SUV of 7.4. Multiple osseous, intramuscular and subcutaneous metastasis involving the spine, ribs, right acromial base. overall hypermetabolic right hilar mass with metastasis involving the pancreas, peripancreatic lymph node, muscle, bones. Today in ER WBC: 2.69, Hgb: 9.7, PLT: 155 Lactate: 3.0-->1.9. procalcitonin: 0.65. CTA Chest: No pulmonary embolism seen. Near obstruction of the right mainstem bronchus with secretions or tumor. Progressive tumor at the right lung with possible superimposed pneumonia. Increased small right pleural effusion. Progressive osseous metastatic disease. In ER received 2L NSS, vancomycin, cefepime MRSA swab pending Zosyn, vancomycin Gentle NSS Supplemental oxygen as needed Incentive spirometry, flutter valve formoterol, saline nebs Pulmonology consult Following with oncology, Dr Jarod Ureña. Pulmonology, Dr Hitchcock #Nausea, vomiting #Generalized Weakness Since first chemo treatment Gentle IVF Thiamine, Folic acid, multivitamin Fall precautions PT/OT eval DVT Prophylaxis SCDs for now Admit PCU Full Code as per discussion with pt Follows with Dr Renee for routine care Admission and Anticipated Discharge Date Admission Date: July 26, 2024 Subjective 07/27/2024 The patient was seen and examined in telemetry unit He remains critical with acute shortness of breath and extremely lethargy Initially did not want to communicate but later on mentioned that he has been having pain all over and he does not feel good He does not have any family members and he does not want anybody to be informed Review of Systems Review of Systems: Unobtainable due to cognitive status Physical Exam Physical Exam: Lying in bed with acute distress due to shortness of breath and profound weakness Constitutional: + ill appearing Eyes: PERRL, conjunctivae normal, anicteric sclerae ENMT: external ear and nose normal, oropharynx normal Neck: trachea midline, no thyromegaly Respiratory: + respiratory distress Auscultation: + diminished lung sounds and + crackles ( all over) Cardiovascular: Rate/Rhythm: regular rate and regular rhythm Gastrointestinal (Abdomen): Inspection/Auscultation: + abdomen distended and normal bowel sounds Percussion/Palpation: + abdomen tender and abdomen soft Musculoskeletal: No acute arthritis involving any of the joint Neurologic: Extremely weak and tired. Very drowsy and does not want to communicate. Lymphatic: no cervical or axillary lymphadenopathy Results & Data Results & Data Vital Signs (Past 12 Hours) Vital Signs Temp Pulse Pulse Resp BP BP Pulse Ox 07/27/24 14:00 36.6 C 94 H 23 123/75 98 07/27/24 13:00 36.7 C 105 H 21 118/81 92 07/27/24 13:00 36.8 C 101 H 18 117/75 98 07/27/24 12:30 36.8 C 98 H 19 107/72 99 07/27/24 12:15 36.4 C L 102 H 21 102/69 97 07/27/24 11:58 36.8 C 102 H 22 120/75 100 07/27/24 11:58 36.9 C 94 H 22 108/74 99 07/27/24 08:25 07/27/24 08:25 89 07/27/24 08:05 36.8 C 94 H 22 118/64 97 07/27/24 07:46 96 H 18 97 O2 Del Method O2 Flow Rate 07/27/24 14:00 2 07/27/24 13:00 2 07/27/24 13:00 07/27/24 12:30 2 07/27/24 12:15 2 07/27/24 11:58 2 07/27/24 11:58 Nasal Cannula 3 07/27/24 08:25 Nasal Cannula 3 07/27/24 08:25 07/27/24 08:05 Nasal Cannula 3 07/27/24 07:46 Nasal Cannula 3 Laboratory Results Short CBC 07/27/24 07/27/24 Range/Units 05:23 07:54 WBC Cancelled 1.46 L Hgb Cancelled 6.7 L* D Hct Cancelled 20.9 L* Plt Count Cancelled 93 L BMP 07/27/24 05:23 Sodium 136 Potassium 3.2 L D Chloride 102 Carbon Dioxide 31 BUN 14 Creatinine 0.40 L Glucose 120 H Calcium 6.1 L Liver Function 07/27/24 Range/Units 05:23 Total Bilirubin 0.5 (0.2-1.0) mg/dl AST 14 (13-39) U/L ALT 12 (7-52) U/L Alkaline Phosphatase 130 H (34-104) U/L Albumin 2.0 L (3.4-5.0) gm/dl Urine 07/26/24 Range/Units Unknown Urine Color Yellow Urine Appearance Clear (Clear) Urine pH 5.5 (4.5-7.5) Ur Specific [place] 1.038 H (1.000-1.030) Urine Protein Negative (Negative) Urine Glucose (UA) Trace H (Negative) Medications Administered Current Inpatient Medications Acetaminophen (Acetaminophen 325 Mg Tab) 650 mg PO Q4H PRN PRN Reason: Pain or Fever Stop: 08/25/24 15:45 Diltiazem HCl (Diltiazem Hcl 180 Mg Capcr) 180 mg PO QAM [facility] Stop: 08/26/24 09:59 Last Admin: 07/27/24 10:28 Dose: 180 mg Docusate Sodium (Docusate Sodium 100 Mg Cap) 100 mg PO BID PRN PRN Reason: Constipation Stop: 08/25/24 15:45 Formoterol Fumarate (Formoterol 20 Mcg/2 Ml Vial) 20 mcg NEB BIDR [facility] Stop: 08/25/24 18:59 Last Admin: 07/27/24 07:45 Dose: 20 mcg Glycopyrrolate (Glycopyrrolate 0.2 Mg/Ml Vial) 0.4 mg IV Q4H PRN PRN Reason: Rattling Secretions or Pulm Congestion Stop: 08/26/24 14:05 Hydromorphone HCl (Hydromorphone Inj 0.5 Mg/0.5 Ml Syr) 0.5 mg IV Q30M PRN PRN Reason: Pain or Respiratory Distress Stop: 08/10/24 14:05 Last Admin: 07/27/24 14:12 Dose: 0.5 mg Piperacillin Sod/Tazobactam Sod (Zosyn) 4.5 gm in 100 mls @ 25 mls/hr IV Q8H [facility]; Protocol Stop: 07/31/24 19:59 Last Admin: 07/27/24 11:32 Dose: 25 mls/hr Folic Acid 1 mg/ Syringe 10 mls @ 5 mls/min IV QAM [facility] Stop: 08/25/24 14:14 Last Admin: 07/27/24 07:27 Dose: 5 mls/min Sodium Chloride (Nss) 1,000 mls @ 60 mls/hr IV .[id number] [facility] Stop: 07/27/24 23:34 Last Admin: 07/27/24 07:30 Dose: 60 mls/hr Thiamine HCl 200 mg/ Sodium (Chloride) 52 mls @ 210 [place]ls[place] [place] [facility] [place] 08/25/24 14:14 Last Infusion: 07/27/24 08:00 Dose: Infused Promethazine HCl (Phenergan) 6.25 mg in 50.25 mls @ 201 mls/hr IV Q6H PRN PRN Reason: Nausea And Vomiting Stop: 08/25/24 15:45 Sodium Chloride (Nss) 100 mls @ 15 mls/hr IV .Q6H40M PRN PRN Reason: For Transfusion Duration Stop: 07/27/24 16:47 Vancomycin HCl 1,500 mg/ (Sodium Chloride) 530 mls @ 200 mls/hr IV Q12H [facility] Stop: 08/01/24 09:59 Last Infusion: 07/27/24 12:42 Dose: Infused Diltiazem HCl 125 mg/ Dextrose 125 mls @ 10 mls/hr IV .[id number] [facility]; Protocol Stop: 08/26/24 13:59 Last Titration: 07/27/24 13:30 Dose: 10 mg/hr, 10 mls/hr Lactobacillus Acidophilus (Advanced Probiotic 625 Mg Capsule) 1,250 mg PO DAILY [facility] Stop: 08/26/24 08:59 Last Admin: 07/27/24 07:27 Dose: 1,250 mg Lorazepam (Lorazepam 0.5 Mg Tab) 0.5 mg PO Q8H PRN PRN Reason: Anxiety Stop: 08/25/24 15:45 Last Admin: 07/27/24 12:44 Dose: 0.5 mg Lorazepam (Lorazepam 2 Mg/1 Ml Vial) 1 mg IV Q4H PRN PRN Reason: Anxiety/Agitation, spasms Stop: 08/26/24 14:05 Miscellaneous Information (Vancomycin Consult Active) 1 each N/A UD PRN PRN Reason: Consult Stop: 08/25/24 11:07 Morphine Sulfate (Morphine Sulfate Ir 15 Mg Tab (Immediate Release)) 15 mg PO BID PRN PRN Reason: Pain Stop: 08/09/24 15:45 Last Admin: 07/26/24 21:01 Dose: 15 mg Multivitamins/Minerals (Cerovite Adv Formula Tab) 1 tab PO QAM [facility] Stop: 08/26/24 08:59 Last Admin: 07/27/24 07:27 Dose: 1 tab Nystatin (Nystatin Susp 500,000 U/5 Ml Udc) 5 ml PO QID [facility] Stop: 08/26/24 16:59 Ondansetron HCl (Ondansetron Inj 2 Mg/Ml 2 Ml Vial) 4 mg IV Q4H PRN PRN Reason: Nausea &/or Vomiting Stop: 08/26/24 14:05 Oxycodone HCl (Oxycodone Hcl Ir 5 Mg Tab (Immediate Release)) 5 mg PO Q4H PRN PRN Reason: Severe Pain (Scale Score 7-10) Stop: 08/09/24 15:45 Polyethylene Glycol (Polyethylene (Miralax) 17 Gm Pack) 17 gm PO DAILY PRN PRN Reason: Constipation Stop: 08/25/24 15:45 Potassium Chloride (Potassium Chloride 10 Meq Tabcr) 10 meq PO DAILY [facility] Stop: 08/27/24 08:59
--- NOTE | 2024-07-27 15:49 | Communication Note ---
Date of Service: July 27, 2024 Palliative medicine brief note I called patient's power of regulatory attorney and close personal friend, Tony. We discussed the events to date and his overall disease progression. I provided him with updates from the primary team as well as his primary oncologist. Discussed that patient is overall in a rapid decline. In my earlier discussions with patient, he indicated a preference to transition to a comfort focused plan of care because his cancer is rapidly progressing, it is not curable, and he is having increasing and intensifying symptom burden and increased suffering. Tony was in agreement with the transition to comfort care. I advised him that I had asked the patient if there is anyone else I could call for him and he asked me to only call Tony. Very affirmed that he has been patient's primary support, POA and closest friend for many years and notes that he does have a brother who lives in the area, however they has been estranged for over 2 decades. Patient has very consistently and adamantly refused to have any involvement with his brother and had not wanted his brother updated. Tony is going to come back to the hospital later this evening to speak with the patient to discuss if at this junction would it be reasonable to let his brother know what is happening in case a visit to say their goodbyes or perhaps reconcile wou ld be desirable. So has been moved to comfort care. Orders have been written and primary team, nursing and care management updated. It is unlikely he will survive this admission. Patient is aware of this and acknowledges that he "is dying and its only a matter of time before I go." Palliative medicine will continue to follow this patient for end-of-life care. Thank you for allowing us to participate in the ongoing care of this patient. Please page with any additional concerns. Gilma Dumont DNP Director, Palliative Medicine
[2024-07-27] MEDS: NYSTATIN SUSP 500,000 U/5 ML UDC PO SCH (16:10)
--- NOTE | 2024-07-27 16:18 | Palliative Care Consultation ---
Date of Consultation July 27, 2024 Assessment & Plan (1) Dyspnea and respiratory abnormalities: See advance care planning discussion below (2) Generalized weakness: (3) Advanced care planning/counseling discussion: An urgent [id number] bedside discussion was held for advance care planning purposes with patient, no other family or friends were present. This 40-minute discussion reviewed his overall progressive disease, the severity of his cancer, its terminal progression, and overall decline in the context of continued and escalated medical interventions. Patient verbalizes that he is aware he is dying. He does not wish to be placed on life support. He is already elected DNR/DNI. He states that he is suffering. His shortness of breath is very severe and it is cycling alongside his anxiety which is mounting. He has severe pain throughout especially in his chest, abdomen, back arms and legs. He would like more aggressive relief of his pain and symptoms and wants to reduce his suffering. He is aware that his overall anticipated survival is short. We discussed a transition to comfort care and he advised that he would like to begin that right away. He asked that I update his friend Tony who is also his power of hybrid powertrain development engineer. I called Sue and reviewed the above and he is in agreement with transition to comfort care. Tony did share that patient has a brother from whom he has been estranged for over 20 years. He has not wanted his brother updated or involved in any aspect of his care but Tony is going to return to the hospital later today to further discuss with patient whether or not it would be important to have a visit with his brother or at least a call for some attempted reconciliation or making peace at the end of life. At Tony's request, we reviewed the changes patient's may go through as a transition from a process of living to a process of dying including the symptom burdens that may emerge. I advised that we have written comfort care orders including medications for pain and symptom management but that should he require frequent use of the as needed medications then we will transition him to a Dilaudid infusion for improved control of his burden of symptoms. Tony is in agreement with all the above and extremely appreciative of the medical and nursing teams for all the care they are providing the patient. Additionally, Tony commented that patient was in the process of finalizing his estate planning. Tony is going to contact the instructional design manager to determine if the documents were signed or need to be signed. If they need to be signed, he is going to asked the hybrid powertrain development engineer to come to the hospital tonight to have patient signed the paperwork as this was important to the patient in order to make sure that all of his affairs were in and meet and managed process. (4) Palliative care by specialist: Introduced Palliative Medicine and explained our role in patient's care. Patient and/or family were receptive to palliative services for goals of care discussions. Reviewed we are different from hospice, a home health nurse visiting service. Plan As above. Transition to comfort care, orders written. Primary team, nursing, care management, oncology updated. All are in agreement with the transition to a comfort focused plan of care for end-of-life. Patient with short anticipated survival. He will not survive this admission. I have updated Tony with regards to this. Thank you for allowing us to participate in the ongoing care of this patient. Please page with any additional concerns. Gilma Dumont DNP Director, Palliative Medicine History of Present Illness Reason for Consultation: Progressive metastatic cancer Attending Physician: Candy Luna MD History of Present Illness So is a 69-year-old gentleman with metastatic non-small cell lung carcinoma. He is followed by Dr. Ureña at [facility] oncology. He had started systemic chemotherapy approximately 1 week ago. He has severe metastatic disease that has been progressing in the interim. He has severe pain in the chest, ribs, back, back of his head, hips, as well as severe dyspnea. He is short of breath on my arrival. He is speaking in short 2-3 word sentences. He is in significant distress using accessory muscles. He was admitted with progressive respiratory failure, neutropenia, and antibiotics were initiated for presumed pneumonia. CAT scan is reviewed and the changes do not entirely support an infectious etiology but he remains on an empiric course of antibiotics given his immunosuppressed state. He has nearly occluded his pulmonary artery and bronchus. There is no indication or role for stenting. He has very severe and end-stage terminal cancer. Overall his prognosis is very poor.This admission is further complicated by a narrow complex A-fib flutter with rapid response that was initially treated with synchronized cardioversion. He continues to lapse back into atrial tachycardia flutter versus a multifocal atrial tachycardia. He was treated with IV diltiazem. His echocardiogram demonstrated preserved wall motion. He has paroxysmal A-fib flutter with multifocal atrial tachycardia secondary to his acute illness, his mainstem bronchus obstruction, his hypoxia. Unfortunately anticoagulation is contraindicated in this patient. Overall it is felt that his arrhythmic issues will persist and return due to his underlying pathology. He has been meeting with multiple medical providers over the course of today. He is aware that he has an incurable lung cancer and he states "I know I am dying, it is really just a matter time at this point. I feel awful. It is coming for me. I can feel it." He elected DNR/DNI. He does not want to be resuscitated or placed on artificial life support. His friend Tony is also his power of hybrid powertrain development engineer and is his close personal friend. He states that all updates should be directed to Tony. Allergies Allergy/AdvReac Type Severity Reaction Status Date / Time codeine Allergy Mild Itching Verified 07/25/24 02:01 doxycycline AdvReac Intermediate NAUSEA/VOMI Verified 07/25/24 01:56 TING Home Medications Medication Instructions Recorded Confirmed Type naproxen 500 mg tablet 500 mg PO BID PRN pain #14 tabs 05/26/24 07/26/24 Rx albuterol sulfate 90 mcg/actuation 2 puff inhalation Q4H PRN Wheezing 07/03/24 07/26/24 History aerosol inhaler fluticasone 250 mcg-salmeterol 50 1 inh inhalation BID 07/03/24 07/26/24 History mcg/dose blistr powdr for inhalation dexamethasone 4 mg tablet 4 mg PO .as directed 07/11/24 07/26/24 History folic acid 1 mg tablet 1 mg PO DAILY 07/11/24 07/26/24 History lorazepam 0.5 mg tablet 0.5 mg PO Q8H PRN Anxiety 07/11/24 07/26/24 History morphine 15 mg immediate release 15 mg PO BID PRN Pain 07/11/24 07/26/24 History tablet ondansetron HCl 8 mg tablet 8 mg PO Q8H PRN NAUSEA/VOMITING 07/11/24 07/26/24 H istory oxycodone 5 mg tablet 5 mg PO Q4H PRN Severe Pain (Scale 07/11/24 07/26/24 History Score 7-10) prochlorperazine maleate 10 mg 10 mg PO Q6H PRN NAUSEA/VOMITING 07/11/24 07/26/24 History tablet (Compazine) cefdinir 300 mg capsule 300 mg PO BID 10 days #20 caps 07/18/24 07/26/24 Rx fluconazole 100 mg tablet 100 mg PO QAM 07/25/24 07/26/24 History docusate sodium 100 mg capsule 100 mg PO BID PRN Constipation 07/26/24 07/26/24 History Patient History Medical History Femur fracture, left In past Benign neoplasm of colon Arthritis COPD (chronic obstructive pulmonary disease) Anxiety Lung cancer, primary, with metastasis from lung to other site Lung cancer Chronic back pain Surgical History History of surgery Both lower legs; H/O inguinal hernia repair H/O colonoscopy S/P bronchoscopy with biopsy EBUS on 06/22/24 Family History Father , 95yo Pacemaker Hypertension Diabetes Colorectal cancer Mother , 58yo Lung cancer Brother Medical history unknown Sister Cancer Pt uncertain of type Sister Cancer Pt uncertain of type of cancer Sister Cancer Pt uncertain of type of cancer Sister Drowning Social History Smoking Status: Former smoker Tobacco Type: Cigarettes Cigarettes Per Day: 1 PPD x 53 yrs; Second Hand Exposure: No; Do You Dip or Chew Tobacco: No; Hx Alcohol Use: No Hx Substance Use: No Preferred Language: Chinese Communication Ability: Effective Head Shipper Required: No Beliefs That Will Affect Care: None marital status: Single Current Living Situation: Alone current occupational status: retired 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 Admits to severe pain and dyspnea throughout. He is using accessory muscles to breathe. There is coarse rhonchi, diminished breath sounds on the right, wheezing throughout, and crackles at the base. Accessory muscle use is noted. Conversational dyspnea is noted. Abdominal breathing is noted. He is tachycardic. He is not able to find a comfortable position. He requested we reposition him and pulling him all the way up in bed. He has generalized weakness, generalized pain. Bowel sounds are diminished. He is awake alert and oriented x 3. He is able to weakly follow commands but overall strength is markedly diminished. His skin color is pale, skin is cool to touch. Results & Data Vital Signs (Past 12 Hours) Vital Signs Temp Pulse Pulse Resp BP BP Pulse Ox 07/27/24 14:39 36.6 C 94 H 21 120/69 99 07/27/24 14:00 36.6 C 94 H 23 123/75 98 07/27/24 13:00 36.7 C 105 H 21 118/81 92 07/27/24 13:00 36.8 C 101 H 18 117/75 98 07/27/24 12:30 36.8 C 98 H 19 107/72 99 07/27/24 12:15 36.4 C L 102 H 21 102/69 97 07/27/24 11:58 36.8 C 102 H 22 120/75 100 07/27/24 11:58 36.9 C 94 H 22 108/74 99 07/27/24 08:25 07/27/24 08:25 89 07/27/24 08:05 36.8 C 94 H 22 118/64 97 07/27/24 07:46 96 H 18 97 O2 Del Method O2 Flow Rate 07/27/24 14:39 2 07/27/24 14:00 2 07/27/24 13:00 2 07/27/24 13:00 07/27/24 12:30 2 07/27/24 12:15 2 07/27/24 11:58 2 07/27/24 11:58 Nasal Cannula 3 07/27/24 08:25 Nasal Cannula 3 07/27/24 08:25 07/27/24 08:05 Nasal Cannula 3 07/27/24 07:46 Nasal Cannula 3 Laboratory Results 07/27/24 07/27/24 07/27/24 Range/Units Unknown 08:58 07:54 WBC 1.46 L (4.8-10.8) K/ul RBC 2.52 L (4.70-6.10) M/uL Hgb 6.7 L* D (14.0-18.0) g/dl Hct 20.9 L* (42.0-52.0) % MCV 82.9 (80.0-100.0) fL MCH 26.6 (25.0-34.0) pg MCHC 32.1 (32.0-36.0) g/dL RDW Std Deviation 45.0 (36.4-46.3) fL RDW Coeff of Hood 14.8 H (11.5-14.5) % Plt Count 93 L (130-400) K/uL MPV 10.1 (9.4-12.4) fL Immature Gran % (Auto) 6.2 % Neut % (Auto) 60.2 % Lymph % (Auto) 28.1 % Clark % (Auto) 2.1 % Eos % (Auto) 3.4 % Baso % (Auto) 0.0 % Neut # (Auto) 0.88 L* (1.40-6.50) K/uL Lymph # (Auto) 0.41 L (1.20-3.40) K/uL Clark # (Auto) 0.03 L (0.11-0.59) K/uL Eos # (Auto) 0.05 (0.00-0.50) K/uL Baso # (Auto) 0.00 (0.00-0.20) K/uL Immature Gran # (Auto) 0.09 (0.01-0.20) K/uL Absolute Nucleated RBC Nucleated RBC % (auto) Neutrophils % (Manual) Band Neutrophils % Lymphocytes % (Manual) Prolymphocyte % Reactive Lymphs % (Man) Monocytes % (Manual) Eosinophils % (Manual) Basophils % (Manual) Metamyelocytes % (Man) Myelocytes % (Man) Promyelocytes % (Man) Blast Cells % (Manual) Plasma Cell % (Manual) Other Cells % Nucleated RBC % Neutrophils # (Manual) Band Neutrophils # Total Absolute Neuts Lymphocytes # (Manual) Prolymphocyte # Reactive Lymphs # Total Abs Lymphocytes Monocytes # (Manual) Eosinophils # (Manual) Basophils # (Manual) Metamyelocytes # (Man) Myelocytes # (Manual) Promyelocytes # (Man) Blast Cells # (Man) Plasma Cell # (Manual) Other Cells # Nucleated RBCs # (Man) Hypersegmented Neuts Hyposegmented Neuts Hypogranular Neuts Large Granular Lymphs # Lrg Granular Lymphs Hairy Cells Smudge Cells Toxic Granulation Toxic Vacuolation Dohle Bodies Dalia Rods Platelet Estimate (Normal) Hypogranular Platelets Giant Platelets Platelet Satelliting RBC Morphology Polychromasia Hypochromasia Poikilocytosis Basophilic Stippling Anisocytosis Microcytosis Macrocytosis Spherocytes Pappenheimer Bodies Sickle Cells Target Cells Tear Drop Cells Ovalocytes Stomatocytes [place] Bodies Echinocytes Acanthocytes (Spur) Rouleaux RBC Agglutinates Schistocytes Sezary Cell VBG pH (7.36-7.41) VBG pCO2 (38-50) mmHg VBG pO2 mmHg VBG HCO3 mmol/L VBG O2 Saturation % VBG Base Excess mEq/L Sodium (136-145) mmol/L Potassium (3.5-5.1) mmol/L Chloride (98-107) mmol/L Carbon Dioxide (21-32) mmol/L Anion Gap (3-11) BUN (6-23) mg/dl Creatinine (0.6-1.4) mg/dl Est Cr Clr Drug Dosing ml/min eGFR BUN/Creatinine Ratio (10-20) Glucose (70-99(Fasting)) mg/dl POC Glucose (70-99) mg/dl Estimat Average Glucose mg/dl Hemoglobin A1c (4.5-5.6) % Lactate (0.4-2.0) mmol/L Calcium (8.6-10.3) mg/dl Magnesium (1.7-2.4) mg/dl Total Bilirubin (0.2-1.0) mg/dl Direct Bilirubin (0-0.2) mg/dl AST (13-39) U/L ALT (7-52) U/L Alkaline Phosphatase (34-104) U/L Troponin I High Sens (0-20) pg/ml Total Protein (6.0-8.3) gm/dl Albumin (3.4-5.0) gm/dl Globulin (2.5-4.0) gm/dl Albumin/Globulin Ratio (0.9-2) Procalcitonin (0-0.5) ng/ml Urine Color Urine Appearance (Clear) Urine pH (4.5-7.5) Ur Specific [place] (1.000-1.030) Urine Protein (Negative) Urine Glucose (UA) (Negative) Urine Ketones (Negative) Urine Blood (Negative) Urine Nitrite (Negative) Urine Bilirubin (Negative) Urine Urobilinogen (Negative) Ur Leukocyte Esterase (Negative) Nasal Screen MRSA (PCR) Negative (Negative) Blood Parasites ID Blood Type Blood Type Recheck O Positive Antibody Screen Crossmatch 07/27/24 07/26/24 07/26/24 Range/Units 05:23 Unknown 16:37 WBC Cancelled (4.8-10.8) K/ul RBC Cancelled (4.70-6.10) M/uL Hgb Cancelled (14.0-18.0) g/dl Hct Cancelled (42.0-52.0) % MCV Cancelled (80.0-100.0) fL MCH Cancelled (25.0-34.0) pg MCHC Cancelled (32.0-36.0) g/dL RDW Std Deviation Cancelled (36.4-46.3) fL RDW Coeff of Hood Cancelled (11.5-14.5) % Plt Count Cancelled (130-400) K/uL MPV Cancelled (9.4-12.4) fL Immature Gran % (Auto) Cancelled % Neut % (Auto) Cancelled % Lymph % (Auto) Cancelled % Clark % (Auto) Cancelled % Eos % (Auto) Cancelled % Baso % (Auto) Cancelled % Neut # (Auto) Cancelled (1.40-6.50) K/uL Lymph # (Auto) Cancelled (1.20-3.40) K/uL Clark # (Auto) Cancelled (0.11-0.59) K/uL Eos # (Auto) Cancelled (0.00-0.50) K/uL Baso # (Auto) Cancelled (0.00-0.20) K/uL Immature Gran # (Auto) Cancelled (0.01-0.20) K/uL Absolute Nucleated RBC Cancelled Nucleated RBC % (auto) Cancelled Neutrophils % (Manual) Cancelled Band Neutrophils % Cancelled Lymphocytes % (Manual) Cancelled Prolymphocyte % Cancelled Reactive Lymphs % (Man) Cancelled Monocytes % (Manual) Cancelled Eosinophils % (Manual) Cancelled Basophils % (Manual) Cancelled Metamyelocytes % (Man) Cancelled Myelocytes % (Man) Cancelled Promyelocytes % (Man) Cancelled Blast Cells % (Manual) Cancelled Plasma Cell % (Manual) Cancelled Other Cells % Cancelled Nucleated RBC % Cancelled Neutrophils # (Manual) Cancelled Band Neutrophils # Cancelled Total Absolute Neuts Cancelled Lymphocytes # (Manual) Cancelled Prolymphocyte # Cancelled Reactive Lymphs # Cancelled Total Abs Lymphocytes Cancelled Monocytes # (Manual) Cancelled Eosinophils # (Manual) Cancelled Basophils # (Manual) Cancelled Metamyelocytes # (Man) Cancelled Myelocytes # (Manual) Cancelled Promyelocytes # (Man) Cancelled Blast Cells # (Man) Cancelled Plasma Cell # (Manual) Cancelled Other Cells # Cancelled Nucleated RBCs # (Man) Cancelled Hypersegmented Neuts Cancelled Hyposegmented Neuts Cancelled Hypogranular Neuts Cancelled Large Granular Lymphs Cancelled # Lrg Granular Lymphs Cancelled Hairy Cells Cancelled Smudge Cells Cancelled Toxic Granulation Cancelled Toxic Vacuolation Cancelled Dohle Bodies Cancelled Dalia Rods Cancelled Platelet Estimate Cancelled (Normal) Hypogranular Platelets Cancelled Giant Platelets Cancelled Platelet Satelliting Cancelled RBC Morphology Cancelled Polychromasia Cancelled Hypochromasia Cancelled Poikilocytosis Cancelled Basophilic Stippling Cancelled Anisocytosis Cancelled Microcytosis Cancelled Macrocytosis Cancelled Spherocytes Cancelled Pappenheimer Bodies Cancelled Sickle Cells Cancelled Target Cells Cancelled Tear Drop Cells Cancelled Ovalocytes Cancelled Stomatocytes Cancelled [place] Bodies Cancelled Echinocytes Cancelled Acanthocytes (Spur) Cancelled Rouleaux Cancelled RBC Agglutinates Cancelled Schistocytes Cancelled Sezary Cell Cancelled VBG pH (7.36-7.41) VBG pCO2 (38-50) mmHg VBG pO2 mmHg VBG HCO3 mmol/L VBG O2 Saturation % VBG Base Excess mEq/L Sodium 136 (136-145) mmol/L Potassium 3.2 L D (3.5-5.1) mmol/L Chloride 102 (98-107) mmol/L Carbon Dioxide 31 (21-32) mmol/L Anion Gap 3 (3-11) BUN 14 (6-23) mg/dl Creatinine 0.40 L (0.6-1.4) mg/dl Est Cr Clr Drug Dosing 179.2 ml/min eGFR 119.58 BUN/Creatinine Ratio 35.0 H (10-20) Glucose 120 H (70-99(Fasting)) mg/dl POC Glucose 131 H (70-99) mg/dl Estimat Average Glucose 148 mg/dl Hemoglobin A1c 6.8 H (4.5-5.6) % Lactate (0.4-2.0) mmol/L Calcium 6.1 L (8.6-10.3) mg/dl Magnesium 2.0 (1.7-2.4) mg/dl Total Bilirubin 0.5 (0.2-1.0) mg/dl Direct Bilirubin (0-0.2) mg/dl AST 14 (13-39) U/L ALT 12 (7-52) U/L Alkaline Phosphatase 130 H (34-104) U/L Troponin I High Sens (0-20) pg/ml Total Protein 4.6 L D (6.0-8.3) gm/dl Albumin 2.0 L (3.4-5.0) gm/dl Globulin 2.6 (2.5-4.0) gm/dl Albumin/Globulin Ratio 0.8 L (0.9-2) Procalcitonin (0-0.5) ng/ml Urine Color Yellow Urine Appearance Clear (Clear) Urine pH 5.5 (4.5-7.5) Ur Specific [place] 1.038 H (1.000-1.030) Urine Protein Negative (Negative) Urine Glucose (UA) Trace H (Negative) Urine Ketones Negative (Negative) Urine Blood Negative (Negative) Urine Nitrite Negative (Negative) Urine Bilirubin Negative (Negative) Urine Urobilinogen Negative (Negative) Ur Leukocyte Esterase Negative (Negative) Nasal Screen MRSA (PCR) (Negative) Blood Parasites ID Cancelled Blood Type Blood Type Recheck Antibody Screen Crossmatch 07/26/24 07/26/24 07/26/24 Range/Units 13:00 11:21 10:53 WBC (4.8-10.8) K/ul RBC (4.70-6.10) M/uL Hgb (14.0-18.0) g/dl Hct (42.0-52.0) % MCV (80.0-100.0) fL MCH (25.0-34.0) pg MCHC (32.0-36.0) g/dL RDW Std Deviation (36.4-46.3) fL RDW Coeff of Hood (11.5-14.5) % Plt Count (130-400) K/uL MPV (9.4-12.4) fL Immature Gran % (Auto) % Neut % (Auto) % Lymph % (Auto) % Clark % (Auto) % Eos % (Auto) % Baso % (Auto) % Neut # (Auto) (1.40-6.50) K/uL Lymph # (Auto) (1.20-3.40) K/uL Clark # (Auto) (0.11-0.59) K/uL Eos # (Auto) (0.00-0.50) K/uL Baso # (Auto) (0.00-0.20) K/uL Immature Gran # (Auto) (0.01-0.20) K/uL Absolute Nucleated RBC Nucleated RBC % (auto) Neutrophils % (Manual) Band Neutrophils % Lymphocytes % (Manual) Prolymphocyte % Reactive Lymphs % (Man) Monocytes % (Manual) Eosinophils % (Manual) Basophils % (Manual) Metamyelocytes % (Man) Myelocytes % (Man) Promyelocytes % (Man) Blast Cells % (Manual) Plasma Cell % (Manual) Other Cells % Nucleated RBC % Neutrophils # (Manual) Band Neutrophils # Total Absolute Neuts Lymphocytes # (Manual) Prolymphocyte # Reactive Lymphs # Total Abs Lymphocytes Monocytes # (Manual) Eosinophils # (Manual) Basophils # (Manual) Metamyelocytes # (Man) Myelocytes # (Manual) Promyelocytes # (Man) Blast Cells # (Man) Plasma Cell # (Manual) Other Cells # Nucleated RBCs # (Man) Hypersegmented Neuts Hyposegmented Neuts Hypogranular Neuts Large Granular Lymphs # Lrg Granular Lymphs Hairy Cells Smudge Cells Toxic Granulation Toxic Vacuolation Dohle Bodies Dalia Rods Platelet Estimate (Normal) Hypogranular Platelets Giant Platelets Platelet Satelliting RBC Morphology Polychromasia Hypochromasia Poikilocytosis Basophilic Stippling Anisocytosis Microcytosis Macrocytosis Spherocytes Pappenheimer Bodies Sickle Cells Target Cells Tear Drop Cells Ovalocytes Stomatocytes [place] Bodies Echinocytes Acanthocytes (Spur) Rouleaux RBC Agglutinates Schistocytes Sezary Cell VBG pH 7.35 L (7.36-7.41) VBG pCO2 52 H (38-50) mmHg VBG pO2 20 mmHg VBG HCO3 29 mmol/L VBG O2 Saturation < 60.0 % VBG Base Excess 2.1 mEq/L Sodium (136-145) mmol/L Potassium (3.5-5.1) mmol/L Chloride (98-107) mmol/L Carbon Dioxide (21-32) mmol/L Anion Gap (3-11) BUN (6-23) mg/dl Creatinine (0.6-1.4) mg/dl Est Cr Clr Drug Dosing ml/min eGFR BUN/Creatinine Ratio (10-20) Glucose (70-99(Fasting)) mg/dl POC Glucose (70-99) mg/dl Estimat Average Glucose mg/dl Hemoglobin A1c (4.5-5.6) % Lactate 1.9 (0.4-2.0) mmol/L Calcium (8.6-10.3) mg/dl Magnesium (1.7-2.4) mg/dl Total Bilirubin (0.2-1.0) mg/dl Direct Bilirubin (0-0.2) mg/dl AST (13-39) U/L ALT (7-52) U/L Alkaline Phosphatase (34-104) U/L Troponin I High Sens (0-20) pg/ml Total Protein (6.0-8.3) gm/dl Albumin (3.4-5.0) gm/dl Globulin (2.5-4.0) gm/dl Albumin/Globulin Ratio (0.9-2) Procalcitonin (0-0.5) ng/ml Urine Color Urine Appearance (Clear) Urine pH (4.5-7.5) Ur Specific [place] (1.000-1.030) Urine Protein (Negative) Urine Glucose (UA) (Negative) Urine Ketones (Negative) Urine Blood (Negative) Urine Nitrite (Negative) Urine Bilirubin (Negative) Urine Urobilinogen (Negative) Ur Leukocyte Esterase (Negative) Nasal Screen MRSA (PCR) (Negative) Blood Parasites ID Blood Type O Positive Blood Type Recheck Antibody Screen NEGATIVE Crossmatch See Detail 07/26/24 Range/Units 10:52 WBC 2.69 L (4.8-10.8) K/ul RBC 3.57 L (4.70-6.10) M/uL Hgb 9.7 L (14.0-18.0) g/dl Hct 29.4 L (42.0-52.0) % MCV 82.4 (80.0-100.0) fL MCH 27.2 (25.0-34.0) pg MCHC 33.0 (32.0-36.0) g/dL RDW Std Deviation 43.2 (36.4-46.3) fL RDW Coeff of Hood 14.6 H (11.5-14.5) % Plt Count 155 (130-400) K/uL MPV 10.7 (9.4-12.4) fL Immature Gran % (Auto) 10.0 % Neut % (Auto) 71.5 % Lymph % (Auto) 16.7 % Clark % (Auto) 0.7 % Eos % (Auto) 0.4 % Baso % (Auto) 0.7 % Neut # (Auto) 1.92 (1.40-6.50) K/uL Lymph # (Auto) 0.45 L (1.20-3.40) K/uL Clark # (Auto) 0.02 L (0.11-0.59) K/uL Eos # (Auto) 0.01 (0.00-0.50) K/uL Baso # (Auto) 0.02 (0.00-0.20) K/uL Immature Gran # (Auto) 0.27 H (0.01-0.20) K/uL Absolute Nucleated RBC Nucleated RBC % (auto) Neutrophils % (Manual) Band Neutrophils % Lymphocytes % (Manual) Prolymphocyte % Reactive Lymphs % (Man) Monocytes % (Manual) Eosinophils % (Manual) Basophils % (Manual) Metamyelocytes % (Man) Myelocytes % (Man) Promyelocytes % (Man) Blast Cells % (Manual) Plasma Cell % (Manual) Other Cells % Nucleated RBC % Neutrophils # (Manual) Band Neutrophils # Total Absolute Neuts Lymphocytes # (Manual) Prolymphocyte # Reactive Lymphs # Total Abs Lymphocytes Monocytes # (Manual) Eosinophils # (Manual) Basophils # (Manual) Metamyelocytes # (Man) Myelocytes # (Manual) Promyelocytes # (Man) Blast Cells # (Man) Plasma Cell # (Manual) Other Cells # Nucleated RBCs # (Man) Hypersegmented Neuts Hyposegmented Neuts Hypogranular Neuts Large Granular Lymphs # Lrg Granular Lymphs Hairy Cells Smudge Cells Toxic Granulation Toxic Vacuolation 1+ Dohle Bodies Dalia Rods Platelet Estimate Normal (Normal) Hypogranular Platelets Giant Platelets Platelet Satelliting RBC Morphology Polychromasia Hypochromasia Poikilocytosis Basophilic Stippling Anisocytosis Microcytosis Macrocytosis Spherocytes Pappenheimer Bodies Sickle Cells Target Cells Tear Drop Cells Ovalocytes Stomatocytes [place] Bodies Echinocytes Acanthocytes (Spur) Rouleaux RBC Agglutinates Schistocytes Sezary Cell VBG pH (7.36-7.41) VBG pCO2 (38-50) mmHg VBG pO2 mmHg VBG HCO3 mmol/L VBG O2 Saturation % VBG Base Excess mEq/L Sodium 134 L (136-145) mmol/L Potassium 4.3 (3.5-5.1) mmol/L Chloride 96 L (98-107) mmol/L Carbon Dioxide 30 (21-32) mmol/L Anion Gap 8 (3-11) BUN 21 (6-23) mg/dl Creatinine 0.59 L (0.6-1.4) mg/dl Est Cr Clr Drug Dosing 125.4 ml/min eGFR 106.34 BUN/Creatinine Ratio 35.6 H (10-20) Glucose 171 H (70-99(Fasting)) mg/dl POC Glucose (70-99) mg/dl Estimat Average Glucose mg/dl Hemoglobin A1c (4.5-5.6) % Lactate 3.0 H* (0.4-2.0) mmol/L Calcium 7.1 L (8.6-10.3) mg/dl Magnesium 2.2 (1.7-2.4) mg/dl Total Bilirubin 0.7 (0.2-1.0) mg/dl Direct Bilirubin 0.1 (0-0.2) mg/dl AST 20 (13-39) U/L ALT 16 (7-52) U/L Alkaline Phosphatase 162 H (34-104) U/L Troponin I High Sens 8.0 D (0-20) pg/ml Total Protein 5.7 L (6.0-8.3) gm/dl Albumin 2.5 L (3.4-5.0) gm/dl Globulin (2.5-4.0) gm/dl Albumin/Globulin Ratio (0.9-2) Procalcitonin 0.65 H (0-0.5) ng/ml Urine Color Urine Appearance (Clear) Urine pH (4.5-7.5) Ur Specific [place] (1.000-1.030) Urine Protein (Negative) Urine Glucose (UA) (Negative) Urine Ketones (Negative) Urine Blood (Negative) Urine Nitrite (Negative) Urine Bilirubin (Negative) Urine Urobilinogen (Negative) Ur Leukocyte Esterase (Negative) Nasal Screen MRSA (PCR) (Negative) Blood Parasites ID Blood Type Blood Type Recheck Antibody Screen Crossmatch Diagnostic Findings Chest X-Ray 07/26/24 10:37 XR chest 1V portable CLINICAL HISTORY: Sepsis COMPARISON STUDY: 07/25/2024 FINDINGS: Single view portable chest demonstrates no significant interval change. Continues to be pronounced airspace opacity in the right lung associated with left costophrenic angle blunting and thickening of the minor fissure indicating probable exudative effusion. The left lung is grossly clear. Heart size and pulmonary vascularity are unremarkable. There is no pneumothorax. IMPRESSION: No interval improvement in the right lung infiltrate consistent with pneumonia. Slightly enlarging right pleural effusion. ACT 112: Negative or not required by law. Electronically signed by: Siomara Sofia M.D. 07/26/2024 11:32 AM Chest CTA 07/26/24 10:53 CT angio chest PE protocol CT DOSE: 756.16 mGy.cm HISTORY: PE. TECHNIQUE: Multiple CTA images of the chest were obtained after the intravenous administration of 60 ml Optiray. Coronal and sagittal MIPS were obtained from the axial data set and were submitted for review. All measurements were obtained according to NASCET criteria. A dose lowering technique was utilized adhering to the principles of ALARA. COMPARISON STUDY: Chest x-ray earlier today and PET CT of 06/13/2024 FINDINGS: Right hilar mass measures approximately 5 cm, grossly stable. There is increased reticular and patchy consolidation throughout the right middle lobe and a large portion of the upper to mid right lower lobe which has morphology suggesting metastatic spread of tumor with possible superimposed pneumonia. There is an increased small right pleural effusion and increased adjacent consolidation at the right lung base, pneumonia, tumor, or atelectasis. There is stable moderate emphysema. There is no pneumothorax. There is near occlusion of the right mainstem bronchus with secretions or tumor. The right hilar mass severely narrows the right main pulmonary artery. Evaluation of the tiny distal pulmonary arteries is limited. No pulmonary embolism seen. No pericardial effusion. There is an interval osseous destructive lesion posteriorly and laterally at the left ninth rib. There is an interval osseous destructive lesion laterally at the right seventh rib laterally with superimposed nondisplaced fracture. There are lucent osseous lesions at the T5 and T10 vertebral bodies. There are mild subacute-appearing vertebral body compression fractures at those levels. There is an osseous destructive lesion at the sternum. Findings are consistent with progressive osseous metastatic disease. IMPRESSION: 1. No pulmonary embolism seen. 2. Near obstruction of the right mainstem bronchus with secretions or tumor. 3. Progressive tumor at the right lung with possible superimposed pneumonia. Increased small right pleural effusion. 4. Progressive osseous metastatic disease. 5. Otherwise as described. ACT 112: Negative or not required by law. The above report was generated using voice recognition software. It may contain grammatical, syntax or spelling errors. Electronically signed by: Scott Armenta M.D. 07/26/2024 12:44 PM PG Care Time/CCT Total # of Minutes Spent Total Time Spent with Patient: Total time spent is greater than 50% in coordination of care (as documented) at patient's floor/unit and/or counseling patient: I spent 125 minutes overall addressing this case: 25 min in medical data review/discussion with referring provider(s) and/or preparation for the visit including outside hospital data review, review of the case with his outside oncologist 20 min in direct interaction with the patient/exam 40 min in Advance Care Planning/Goals of Care discussions as detailed above in note (must be >16min) 15 min in subsequent review and synthesis of assessment and plan 25 min communicating with other providers regarding the patient's case: Advanced Care Planning 67592 Advanced Care Planning 30 Min 15639 Advanced Care Planning Additional 30 [place] [address] IN/OBS CONSULT LVL 5,80M (25 - SIGNIFICANT, SEPARATELY IDENTIFIABLE ) Patient Type New Medical Decision Making High Complexity Diagnoses Dyspnea and respiratory abnormalities R06.00; R06.89 Generalized weakness R53.1 Advanced care planning/counseling discussion Z71.89 Palliative care by specialist Z51.5 Additional Codes Advanced Care Planning - 34937 Advanced Care Planning 30 Min: 55621 Advanced Care Planning 30 Min ([id number]) Advanced Care Planning - 08562 Advanced Care Planning Additional 30 Min: 62175 Advanced Care Planning Additional 30 Min ([id number]) Comment [id number], [id number]
--- NOTE | 2024-07-27 21:07 | Electrocardiogram Report ---
Test Reason : Blood Pressure : */* mmHG Vent. Rate : 123 BPM Atrial Rate : 123 BPM P-R Int : 128 ms QRS Dur : 78 ms QT Int : 306 ms P-R-T Axes : 59 74 68 degrees QTcB Int : 438 ms Sinus tachycardia Possible Left atrial enlargement Borderline ECG When compared with ECG of 26-Jul-2024 10:20, Sinus rhythm has replaced Atrial fibrillation ST no longer depressed in Inferior leads ST less depressed in Anterolateral leads Vent. rate has decreased by 77 bpm Confirmed by Tyrone Tian ([id number]) on 07/27/2024 9:07:24 PM Referred By: REFERRED SELF Confirmed By: Tyrone Tian
--- NOTE | 2024-07-27 21:08 | Electrocardiogram Report ---
Test Reason : Blood Pressure : */* mmHG Vent. Rate : 124 BPM Atrial Rate : 124 BPM P-R Int : 124 ms QRS Dur : 76 ms QT Int : 304 ms P-R-T Axes : 58 77 73 degrees QTcB Int : 436 ms Poor data quality, interpretation may be adversely affected Sinus tachycardia with Premature atrial complexes and PVCs Incomplete right bundle branch block When compared with ECG of 26-Jul-2024 10:43, Premature ventricular complexes are now Present Premature atrial complexes are now Present Confirmed by Tyrone Tian ([id number]) on 07/27/2024 9:08:15 PM Referred By: REFERRED SELF Confirmed By: Tyrone Tian
--- NOTE | 2024-07-27 21:20 | Electrocardiogram Report ---
Test Reason : Blood Pressure : */* mmHG Vent. Rate : 92 BPM Atrial Rate : 92 BPM P-R Int : 132 ms QRS Dur : 94 ms QT Int : 386 ms P-R-T Axes : 33 46 53 degrees QTcB Int : 477 ms Normal sinus rhythm Incomplete right bundle branch block Borderline ECG When compared with ECG of 26-Jul-2024 10:57, Premature atrial complexes are no longer Present Confirmed by Tyrone Tian ([id number]) on 07/27/2024 9:20:19 PM Referred By: REFERRED SELF Confirmed By: Tyrone Tian
--- NOTE | 2024-07-27 21:21 | Electrocardiogram Report ---
Test Reason : Blood Pressure : */* mmHG Vent. Rate : 114 BPM Atrial Rate : 114 BPM P-R Int : 128 ms QRS Dur : 88 ms QT Int : 324 ms P-R-T Axes : 43 51 54 degrees QTcB Int : 446 ms Sinus tachycardia with Premature supraventricular complexes Premature ventricular complexes Nonspecific ST abnormality Incomplete right bundle branch block Abnormal ECG When compared with ECG of 27-Jul-2024 06:32, Premature supraventricular complexes are now Present Premature ventricular complexes are now Present Confirmed by Tyrone Tian ([id number]) on 07/27/2024 9:21:06 PM Referred By: REFERRED SELF Confirmed By: Tyrone Tian
[2024-07-27] MEDS: HYDROmorphone INJ 1 MG/ML SYRINGE IV PRN (23:51)
[2024-07-28] MEDS ORDERED: POTASSIUM CHLORIDE 10 MEQ TABCR PO SCH (09:00)
--- NOTE | 2024-07-28 11:42 | Hospitalist Progress Note ---
Date of Service July 28, 2024 Assessment & Plan (1) Lung cancer, primary, with metastasis from lung to other site: Plan: Acute hypoxic respiratory failure secondary to 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 Has had recent chemotherapy and the condition has been deteriorating Appreciate pulmonary input and recommendation Prognosis is extremely poor Palliative care consultation was taken and the patient is going towards comfort care only Remains critical but stable Will transfer to medical floor and continue with the comfort care Acute anemia Likely secondary to the disease process Hemoglobin dropped to 6.7 and the patient was agreeable to get blood transfusion Plan for 2 units but now it is discontinued as he chooses to be comfort care only No further blood work (2) Narrow complex tachycardia: Plan: Rapid Atrial flutter Patient is 69 year old male with PMH anxiety, recently diagnosed non-small cell lung CA involving right hilar/perihilar mass encasing right mainstem bronchus, bone metastasis, COPD, history tobacco use presented to ER with increased SOB, CP, palpitations, dizziness since yesterday Upon ER presentation today found to have pulse 200, with narrow complex tachycardia. Initially given a dose of 6 mg of adenosine and then 2 mg of adenosine with appearance of flutter waves. HR up to 200's and patient ultimately cardioverted with subsequent sinus tachycardia after cardioversion. Patient again had narrow complex tachycardia at a rate of 200 about an hour after cardioversion and was started on diltiazem drip. Currently sinus rhythm with stable BP on diltiazem drip Monitor on telemetry Troponin: 8.0 Continue diltiazem drip Hold on anticoagulation at this time with h/o hemoptysis Cardiology consult. discussed with Dr Romero. Will plan to keep on diltiazem drip for now with consideration adding oral agent tomorrow appreciate cardiology input and recommendation Will try to wean down the Cardizem drip and also give metoprolol tartrate 25 mL 3 times daily to control the heart rate He can be transferred to medical floor after weaning of Cardizem drip (3) Anxiety: (4) COPD (chronic obstructive pulmonary disease): Plan: Likely has exacerbation Antibiotics were restarted and getting nebulized bronchodilator Likely to stop current aggressive management as the patient is going towards comfort care His current deterioration of the condition is not due to sepsis and antibiotic will be discontinued (5) Pneumonia: Plan: As above (6) Pancytopenia: Plan: Chemotherapy induced pancytopenia Neutropenic precaution for now Condition has been deteriorating and going to be only for comfort care Note from the admitting physician: Per outpatient chart review: 07/13/2023 received Zometa. 07/20/24 received Alimta, carboplatin, Keytruda with plan for palliative radiation to symptomatic bone lesion 06/13/2024 PET-CT scan: hypermetabolic right paraprotein nodule SUV of 9.6. 5.4 x 4.8 cm right hilar mass narrows the distal mainstem bronchus SUV 17.5. focal subcentimeter pancreatic body mass with SUV of 8.8. Subcentimeter peripancreatic lymph node adjacent to the pancreatic head. Multiple soft tissue metastases, 1 measuring about 1 cm within the right psoas muscle with a SUV of 7.4. Multiple osseous, intramuscular and subcutaneous metastasis involving the spine, ribs, right acromial base. overall hypermetabolic right hilar mass with metastasis involving the pancreas, peripancreatic lymph node, muscle, bones. Today in ER WBC: 2.69, Hgb: 9.7, PLT: 155 Lactate: 3.0-->1.9. procalcitonin: 0.65. CTA Chest: No pulmonary embolism seen. Near obstruction of the right mainstem bronchus with secretions or tumor. Progressive tumor at the right lung with possible superimposed pneumonia. Increased small right pleural effusion. Progressive osseous metastatic disease. In ER received 2L NSS, vancomycin, cefepime MRSA swab pending Zosyn, vancomycin Gentle NSS Supplemental oxygen as needed Incentive spirometry, flutter valve formoterol, saline nebs Pulmonology consult Following with oncology, Dr Jarod Ureña. Pulmonology, Dr Hitchcock #Nausea, vomiting #Generalized Weakness Since first chemo treatment Gentle IVF Thiamine, Folic acid, multivitamin Fall precautions PT/OT eval DVT Prophylaxis SCDs for now Admit PCU Full Code as per discussion with pt Follows with Dr Renee for routine care Admission and Anticipated Discharge Date Admission Date: July 26, 2024 Subjective 07/27/2024 The patient was seen and examined in telemetry unit He remains critical with acute shortness of breath and extremely lethargy Initially did not want to communicate but later on mentioned that he has been having pain all over and he does not feel good He does not have any family members and he does not want anybody to be informed 07/28/2024 The patient was seen and examined in telemetry unit He has been feeling little better today He will be at comfort care status but cannot take his medications as long as he can take it Will transfer him to medical floor this afternoon when the heart rate is controlled without intravenous Cardizem Review of Systems Review of Systems: Unobtainable due to cognitive status Physical Exam Physical Exam: Lying in bed with acute distress due to shortness of breath and profound weakness Constitutional: + ill appearing Eyes: PERRL, conjunctivae normal, anicteric sclerae ENMT: external ear and nose normal, oropharynx normal Neck: trachea midline, no thyromegaly Respiratory: + respiratory distress Auscultation: + diminished lung sounds and + crackles ( all over) Cardiovascular: Rate/Rhythm: regular rate and regular rhythm Gastrointestinal (Abdomen): Inspection/Auscultation: + abdomen distended and normal bowel sounds Percussion/Palpation: + abdomen tender and abdomen soft Musculoskeletal: No acute arthritis involving any of the joint Neurologic: remains extremely lethargic Lymphatic: no cervical or axillary lymphadenopathy Results & Data Results & Data Vital Signs (Past 12 Hours) Vital Signs Pulse Resp Pulse Ox O2 Del Method O2 Flow Rate FiO2 07/28/24 11:15 Nasal Cannula 2 07/28/24 07:14 92 H 18 98 Nasal Cannula 2
[2024-07-28] MEDS: METOPROLOL SUCC 25MG EXT REL TAB PO SCH (11:50)
--- NOTE | 2024-07-28 12:49 | Cardiology Progress Note ---
Date of Service July 28, 2024 Assessment & Plan (1) Narrow complex tachycardia: Plan: Review rhythm strips demonstrates paroxysmal atrial fibrillation flutter as well as multifocal atrial tachycardia (2) Malignant neoplasm of right lung stage 4: Plan 69-year-old male with metastatic lung cancer with near obstruction of the right mainstream bronchus by CT and bony metastasis presents with acute dyspnea tachy palpitations and persistent hemoptysis. Intermittent hypoxia, possible pneumonia Rhythm on presentation narrow complex likely A-fib flutter with rapid response initially treated with synchronized cardioversion with return to sinus tachycardia only the lapsed back into atrial tachycardia flutter versus multifocal atrial tachycardia. Has responded now to IV diltiazem and is maintaining sinus rhythm. Echocardiogram with preserved wall motion 1. Paroxysmal A-fib flutter/multifocal atrial tachycardia secondary to acute illness, mainstem bronchus obstruction, hypoxia. Anticoagulation contraindicated Continue IV diltiazem with consideration to switch to oral calcium channel versus beta-srinivas. High likelihood of return given underlying pathology 07/27/2024 1. Paroxysmal atrial fibrillation flutter/multifocal atrial tachycardia secondary to acute illnesses: Remained in sinus rhythm on IV diltiazem Will transition to oral diltiazem as blood pressure allows. Anticoagulation contraindicated due to hemoptysis High likelihood of return of atrial arrhythmias Would supplement potassium avoid hypoxia 07/28/2024 1. Paroxysmal atrial fibrillation flutter/multifocal atrial tachycardia secondary to underlying illnesses. Patient transitioning to comfort measures. Would wean diltiazem drip to off would give metoprolol succinate 25 mg daily Admission and Anticipated Discharge Date Admission Date: July 26, 2024 Subjective Transient lapse yesterday into atrial fibrillation flutter with return to sinus rhythm on IV diltiazem. Diltiazem drip currently being weaned Results & Data Vital Signs (Past 12 Hours) Vital Signs Pulse Resp Pulse Ox O2 Del Method O2 Flow Rate FiO2 07/28/24 11:15 Nasal Cannula 2 07/28/24 07:14 92 H 18 98 Nasal Cannula 2
[2024-07-28] MEDS: METOPROLOL TARTRATE 25 MG TAB PO SCH (13:26)
--- NOTE | 2024-07-28 13:29 | Palliative Care Progress Note ---
Date of Service July 28, 2024 Assessment & Plan (1) Dyspnea and respiratory abnormalities: (2) Cancer related pain: Plan: An additional Dilaudid 1 mg dose was added late last night because he was not getting enough relief with the 0.5 mg dose. She has had a few doses of that since the overnight and reports improved relief of both pain and dyspnea. I offered him a scheduled dose or a low-dose infusion which he for now declines as he is very appreciative of the frequency of being checked in on by the nursing staff and feels that all his needs are being met. (3) Generalized weakness: (4) Palliative care by specialist: Plan Updated Tony and Tony son at the bedside. Plan of care continues, comfort measures, no escalation, low threshold to transition to a Dilaudid infusion. If he requires 3 or more doses in the span of an hour, please page me for an infusion order Thank you for allowing us to participate in the ongoing care of this patient. Please page with any additional concerns. Gilma Dumont DNP Director, Palliative Medicine Admission and Anticipated Discharge Date Admission Date: July 26, 2024 Subjective So is seen resting in bed, his friend Tony and Tony son are also present at the bedside. I read appears more comfortable, respiratory rate is calmer, and he reports feeling improvement in pain. He states the pain is still there but it is decreased in intensity from a 10 out of 10 to now more of a 5-6 out of 10. He denies nausea. He denies headache or blurry vision. Occasional chest pain and some mild tightness but this is substantially improved from yesterday. He was able to eat breakfast this morning and reports that he is exceedingly th ankful for the nursing care he is receiving this admission. He remains comfortable with his decision to transition to a comfort focused plan of care. Nephew came to visit him last night. It is unclear if he has any plans to reconcile with his brother. Review of Systems Review of Systems: All systems reviewed & are unremarkable except as noted in Subjective Physical Exam Physical Exam: Chronically ill-appearing gentleman, cachectic, weak, moderate dyspneic, semireclined in bed. Admits to severe pain and dyspnea throughout. There is coarse rhonchi, diminished breath sounds on the right, wheezing throughout, and crackles at the base. Accessory muscle use and conversational dyspnea are noted. S1-S2, no gross JVD. Bowel sounds are diminished. He is awake alert and oriented x 3. He is able to weakly follow commands but overall strength is markedly diminished. His skin color is pale, skin is cool to touch. Results & Data Vital Signs (Past 12 Hours) Vital Signs Pulse Resp Pulse Ox O2 Del Method O2 Flow Rate FiO2 07/28/24 11:15 Nasal Cannula 2 07/28/24 07:14 92 H 18 98 Nasal Cannula 2 PG Care Time/CCT Total # of Minutes Spent Total Time Spent: 55 Total Time Spent with Patient: Total time spent is greater than 50% in coordination of care (as documented) at patient's floor/unit and/or counseling patient: Coding [place] [address] SUB INP/OBS CARE 3/50MIN Patient Type Established History Comprehensive Exam Comprehensive Medical Decision Making High Complexity Diagnoses Dyspnea and respiratory abnormalities R06.00; R06.89 Cancer related pain G89.3 Generalized weakness R53.1 Palliative care by specialist Z51.5
[2024-07-29] MEDS: guaiFENesin/DEXTROM SYRUP 100MG/10MG 5ML UDC PO PRN (01:13)
[2024-07-29] MEDS: LORazepam 2 MG/1 ML VIAL IV PRN (01:56)
--- NOTE | 2024-07-29 13:54 | Hospitalist Progress Note ---
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 Has had recent chemotherapy and the condition has been deteriorating Appreciate pulmonary input and recommendation Prognosis is extremely poor Palliative care consultation was taken and the patient is going towards comfort care only Remains critical but stable Will transfer to medical floor and continue with the comfort care Acute anemia Likely secondary to the disease process Hemoglobin dropped to 6.7 and the patient was agreeable to get blood transfusion Plan for 2 units but now it is discontinued as he chooses to be comfort care only No further blood work (2) Narrow complex tachycardia: Plan: Rapid Atrial flutter Patient is 69 year old male with PMH anxiety, recently diagnosed non-small cell lung CA involving right hilar/perihilar mass encasing right mainstem bronchus, bone metastasis, COPD, history tobacco use presented to ER with increased SOB, CP, palpitations, dizziness since yesterday Upon ER presentation today found to have pulse 200, with narrow complex tachycardia. Initially given a dose of 6 mg of adenosine and then 2 mg of adenosine with appearance of flutter waves. HR up to 200's and patient ultimately cardioverted with subsequent sinus tachycardia after cardioversion. Patient again had narrow complex tachycardia at a rate of 200 about an hour after cardioversion and was started on diltiazem drip. Currently sinus rhythm with stable BP on diltiazem drip Monitor on telemetry Troponin: 8.0 Continue diltiazem drip Hold on anticoagulation at this time with h/o hemoptysis Cardiology consult. discussed with Dr Romero. Will plan to keep on diltiazem drip for now with consideration adding oral agent tomorrow appreciate cardiology input and recommendation Will try to wean down the Cardizem drip and also give metoprolol tartrate 25 mL 3 times daily to control the heart rate He can be transferred to medical floor after weaning of Cardizem drip (3) Anxiety: (4) COPD (chronic obstructive pulmonary disease): Plan: Likely has exacerbation Antibiotics were restarted and getting nebulized bronchodilator Likely to stop current aggressive management as the patient is going towards comfort care His current deterioration of the condition is not due to sepsis and antibiotic will be discontinued (5) Pneumonia: Plan: As above (6) Pancytopenia: Plan: Chemotherapy induced pancytopenia Neutropenic precaution for now Condition has been deteriorating and going to be only for comfort care Note from the admitting physician: Per outpatient chart review: 07/13/2023 received Zometa. 07/20/24 received Alimta, carboplatin, Keytruda with plan for palliative radiation to symptomatic bone lesion 06/13/2024 PET-CT scan: hypermetabolic right paraprotein nodule SUV of 9.6. 5.4 x 4.8 cm right hilar mass narrows the distal mainstem bronchus SUV 17.5. focal subcentimeter pancreatic body mass with SUV of 8.8. Subcentimeter peripancreatic lymph node adjacent to the pancreatic head. Multiple soft tissue metastases, 1 measuring about 1 cm within the right psoas muscle with a SUV of 7.4. Multiple osseous, intramuscular and subcutaneous metastasis involving the spine, ribs, right acromial base. overall hypermetabolic right hilar mass with metastasis involving the pancreas, peripancreatic lymph node, muscle, bones. Today in ER WBC: 2.69, Hgb: 9.7, PLT: 155 Lactate: 3.0-->1.9. procalcitonin: 0.65. CTA Chest: No pulmonary embolism seen. Near obstruction of the right mainstem bronchus with secretions or tumor. Progressive tumor at the right lung with po ssible superimposed pneumonia. Increased small right pleural effusion. Progressive osseous metastatic disease. In ER received 2L NSS, vancomycin, cefepime MRSA swab pending Zosyn, vancomycin Gentle NSS Supplemental oxygen as needed Incentive spirometry, flutter valve formoterol, saline nebs Pulmonology consult Following with oncology, Dr Jarod Ureña. Pulmonology, Dr Hitchcock #Nausea, vomiting #Generalized Weakness Since first chemo treatment Gentle IVF Thiamine, Folic acid, multivitamin Fall precautions PT/OT eval DVT Prophylaxis SCDs for now Admit PCU Full Code as per discussion with pt Follows with Dr Renee for routine care Admission and Anticipated Discharge Date Admission Date: July 26, 2024 Subjective 07/27/2024 The patient was seen and examined in telemetry unit He remains critical with acute shortness of breath and extremely lethargy Initially did not want to communicate but later on mentioned that he has been having pain all over and he does not feel good He does not have any family members and he does not want anybody to be informed 07/28/2024 The patient was seen and examined in telemetry unit He has been feeling little better today He will be at comfort care status but cannot take his medications as long as he can take it Will transfer him to medical floor this afternoon when the heart rate is controlled without intravenous Cardizem 07/29/2024 The patient was seen and examined in telemetry unit with MedSurg status Remains stable and comfortable Minimal pain and without any increasing shortness of breath Physical Exam Physical Exam: Lying in bed with acute distress due to shortness of breath and profound weakness Constitutional: + ill appearing Eyes: PERRL, conjunctivae normal, anicteric sclerae ENMT: external ear and nose normal, oropharynx normal Neck: trachea midline, no thyromegaly Respiratory: + respiratory distress Auscultation: + diminished lung sounds and + crackles ( all over) Cardiovascular: Rate/Rhythm: regular rate and regular rhythm Gastrointestinal (Abdomen): Inspection/Auscultation: + abdomen distended and normal bowel sounds Percussion/Palpation: + abdomen tender and abdomen soft Neurologic: Alert and awake. Extremely weak and lethargic Lymphatic: no cervical or axillary lymphadenopathy Results & Data Results & Data Vital Signs (Past 12 Hours) Vital Signs O2 Del Method O2 Flow Rate 07/29/24 09:00 Nasal Cannula 2 Medications Administered Current Inpatient Medications Acetaminophen (Acetaminophen 325 Mg Tab) 650 mg PO Q4H PRN PRN Reason: Pain or Fever Stop: 08/25/24 15:45 Docusate Sodium (Docusate Sodium 100 Mg Cap) 100 mg PO BID PRN PRN Reason: Constipation Stop: 08/25/24 15:45 Glycopyrrolate (Glycopyrrolate 0.2 Mg/Ml Vial) 0.4 mg IV Q4H PRN PRN Reason: Rattling Secretions or Pulm Congestion Stop: 08/26/24 14:05 Guaifenesin/Dextromethorphan (Guaifenesin/Dextrom Syrup 100mg/10mg 5ml Udc) 5 ml PO Q6H PRN PRN Reason: Cough Stop: 08/27/24 15:39 Last Admin: 07/29/24 01:13 Dose: 5 ml Hydromorphone HCl (Hydromorphone Inj 0.5 Mg/0.5 Ml Syr) 0.5 mg IV Q30M PRN PRN Reason: Pain or Respiratory Distress Stop: 08/10/24 14:05 Last Admin: 07/29/24 13:51 Dose: 0.5 mg Hydromorphone HCl (Hydromorphone Inj 1 Mg/Ml Syringe) 1 mg IV Q1H PRN PRN Reason: Sev air hunger/pain Stop: 08/10/24 22:49 Last Admin: 07/29/24 04:19 Dose: 1 mg Lorazepam (Lorazepam 2 Mg/1 Ml Vial) 1 mg IV Q4H PRN PRN Reason: Anxiety/Agitation, spasms Stop: 08/26/24 14:05 Last Admin: 07/29/24 01:56 Dose: 1 mg Metoprolol Tartrate (Metoprolol Tartrate 25 Mg Tab) 25 mg PO TID [facility] Stop: 08/27/24 13:59 Last Admin: 07/29/24 13:51 Dose: 25 mg Nystatin (Nystatin Susp 500,000 U/5 Ml Udc) 5 ml PO QID [facility] Stop: 08/26/24 16:59 Last Admin: 07/29/24 13:51 Dose: 5 ml Ondansetron HCl (Ondansetron Inj 2 Mg/Ml 2 Ml Vial) 4 mg IV Q4H PRN PRN Reason: Nausea &/or Vomiting Stop: 08/26/24 14:05 Polyethylene Glycol (Polyethylene (Miralax) 17 Gm Pack) 17 gm PO DAILY PRN PRN Reason: Constipation Stop: 08/25/24 15:45
--- NOTE | 2024-07-30 11:01 | Hospitalist Progress Note ---
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 Has had recent chemotherapy and the condition has been deteriorating Appreciate pulmonary input and recommendation Prognosis is extremely poor Palliative care consultation was taken and the patient is going towards comfort care only Remains critical but stable Will transfer to medical floor and continue with the comfort care Acute anemia Likely secondary to the disease process Hemoglobin dropped to 6.7 and the patient was agreeable to get blood transfusion Plan for 2 units but now it is discontinued as he chooses to be comfort care only No further blood work (2) Narrow complex tachycardia: Plan: Rapid Atrial flutter Patient is 69 year old male with PMH anxiety, recently diagnosed non-small cell lung CA involving right hilar/perihilar mass encasing right mainstem bronchus, bone metastasis, COPD, history tobacco use presented to ER with increased SOB, CP, palpitations, dizziness since yesterday Upon ER presentation today found to have pulse 200, with narrow complex tachycardia. Initially given a dose of 6 mg of adenosine and then 2 mg of adenosine with appearance of flutter waves. HR up to 200's and patient ultimately cardioverted with subsequent sinus tachycardia after cardioversion. Patient again had narrow complex tachycardia at a rate of 200 about an hour after cardioversion and was started on diltiazem drip. Currently sinus rhythm with stable BP on diltiazem drip Monitor on telemetry Troponin: 8.0 Continue diltiazem drip Hold on anticoagulation at this time with h/o hemoptysis Cardiology consult. discussed with Dr Romero. Will plan to keep on diltiazem drip for now with consideration adding oral agent tomorrow appreciate cardiology input and recommendation Will try to wean down the Cardizem drip and also give metoprolol tartrate 25 mL 3 times daily to control the heart rate He can be transferred to medical floor after weaning of Cardizem drip (3) Anxiety: (4) COPD (chronic obstructive pulmonary disease): Plan: Likely has exacerbation Antibiotics were restarted and getting nebulized bronchodilator Likely to stop current aggressive management as the patient is going towards comfort care His current deterioration of the condition is not due to sepsis and antibiotic will be discontinued (5) Pneumonia: Plan: As above (6) Pancytopenia: Plan: Chemotherapy induced pancytopenia Neutropenic precaution for now Condition has been deteriorating and going to be only for comfort care Note from the admitting physician: Per outpatient chart review: 07/13/2023 received Zometa. 07/20/24 received Alimta, carboplatin, Keytruda with plan for palliative radiation to symptomatic bone lesion 06/13/2024 PET-CT scan: hypermetabolic right paraprotein nodule SUV of 9.6. 5.4 x 4.8 cm right hilar mass narrows the distal mainstem bronchus SUV 17.5. focal subcentimeter pancreatic body mass with SUV of 8.8. Subcentimeter peripancreatic lymph node adjacent to the pancreatic head. Multiple soft tissue metastases, 1 measuring about 1 cm within the right psoas muscle with a SUV of 7.4. Multiple osseous, intramuscular and subcutaneous metastasis involving the spine, ribs, right acromial base. overall hypermetabolic right hilar mass with metastasis involving the pancreas, peripancreatic lymph node, muscle, bones. Today in ER WBC: 2.69, Hgb: 9.7, PLT: 155 Lactate: 3.0-->1.9. procalcitonin: 0.65. CTA Chest: No pulmonary embolism seen. Near obstruction of the right mainstem bronchus with secretions or tumor. Progressive tumor at the right lung with possible superimposed pneumonia. Increased small right pleural effusion. Progressive osseous metastatic disease. In ER received 2L NSS, vancomycin, cefepime MRSA swab pending Zosyn, vancomycin Gentle NSS Supplemental oxygen as needed Incentive spirometry, flutter valve formoterol, saline nebs Pulmonology consult Following with oncology, Dr Jarod Ureña. Pulmonology, Dr Hitchcock #Nausea, vomiting #Generalized Weakness Since first chemo treatment Gentle IVF Thiamine, Folic acid, multivitamin Fall precautions PT/OT eval DVT Prophylaxis SCDs for now Admit PCU Full Code as per discussion with pt Follows with Dr Renee for routine care Admission and Anticipated Discharge Date Admission Date: July 26, 2024 Subjective 07/27/2024 The patient was seen and examined in telemetry unit He remains critical with acute shortness of breath and extremely lethargy Initially did not want to communicate but later on mentioned that he has been having pain all over and he does not feel good He does not have any family members and he does not want anybody to be informed 07/28/2024 The patient was seen and examined in telemetry unit He has been feeling little better today He will be at comfort care status but cannot take his medications as long as he can take it Will transfer him to medical floor this afternoon when the heart rate is controlled without intravenous Cardizem 07/29/2024 The patient was seen and examined in telemetry unit with MedSurg status Remains stable and comfortable Minimal pain and without any increasing shortness of breath every other day 48 hours my my idea is to if normal urinating more than 48 hours I do not need 07/30/2024 The patient was seen and examined in medical floor He is complaining of some pain and the pain medicine was administered Otherwise remains critical but stable Physical Exam Physical Exam: Lying in bed with acute distress due to shortness of breath and profound weakness Constitutional: + ill appearing Eyes: PERRL, conjunctivae normal, anicteric sclerae ENMT: external ear and nose normal, oropharynx normal Neck: trachea midline, no thyromegaly Respiratory: + respiratory distress Auscultation: + diminished lung sounds and + crackles ( all over) Cardiovascular: Rate/Rhythm: regular rate and regular rhythm Gastrointestinal (Abdomen): Inspection/Auscultation: + abdomen distended and normal bowel sounds Percussion/Palpation: + abdomen tender and abdomen soft Lymphatic: no cervical or axillary lymphadenopathy Results & Data Results & Data Vital Signs (Past 12 Hours) Vital Signs O2 Del Method O2 Flow Rate 07/30/24 10:23 Nasal Cannula 2
[2024-07-30] MEDS: GLYCOPYRROLATE 0.2 MG/ML VIAL IV PRN (11:17)
[2024-07-31] MEDS: HYDROmorphone INJ 1 MG/ML SYRINGE IV SCH (10:24)
--- NOTE | 2024-07-31 16:02 | Palliative Care Progress Note ---
Date of Service July 31, 2024 Assessment & Plan (1) Palliative care by specialist: Plan: Palliative care will continue to follow for ongoing EOL pt care and family support. (2) Cancer related pain: (3) Need for comfort care: Plan: EOL Symptom manamgement: Pain/dyspnea/tachypnea dilaudid 0.5mg IVP PRN [id number] Consider titratable dilaudid drip if pt requires >3 PRN doses in under two consecutive hours. Nausea/vomitting zofran 4mg IVP q4h PRN Agitation ativan 0.5mg IVP q4h PRN Hyperactive delirium haldol 5mg IVP q6h PRN Secretions - if repositioning not effective robinul 0.4mg IV q4h PRN atropine SL 3 drops Q1h PRN Nursing care: Discontinue all medications not directed towards comfort. Detether pt from IV tubing, monitor cables, and check vitals once per shift. Please continue HFNC and titrate down as able for patient comfort. Use medications above PRN for dyspnea/tachypnea and do not increase oxygen once titrated down. Assess q1h for pain/dyspnea and treat accordingly. Plan as above Admission and Anticipated Discharge Date Admission Date: July 26, 2024 Subjective Assessed pt at bedside, he was transitioned to [facility] on 07/27/24. Pt is unresponsive to verbal and gentle tactile stimuli, did not attempt to awaken in concert with comfort directed care. He appears comfortable, no visitors at bedside. Review of Systems Review of Systems: Unobtainable due to cognitive status Physical Exam Physical Exam: Pt is unresponsive to verbal and gentle tactile stimuli, did not attempt to awaken in concert with comfort directed care. Constitutional: + ill appearing Eyes: PERRL, conjunctivae normal, anicteric sclerae ENMT: external ear and nose normal, oropharynx normal Neck: trachea midline, no thyromegaly Respiratory: + respiratory distress Auscultation: + diminished lung sounds and + crackles (diffuse) Cardiovascular: Rate/Rhythm: regular rate and regular rhythm Gastrointestinal (Abdomen): Inspection/Auscultation: + abdomen distended and normal bowel sounds Percussion/Palpation: + abdomen tender and abdomen soft Lymphatic: no cervical or axillary lymphadenopathy Results & Data Vital Signs (Past 12 Hours) Vital Signs O2 Del Method O2 Flow Rate 07/31/24 11:53 Nasal Cannula 2 Laboratory Results No further labs or diagnostics in concert with comfort directed care. Diagnostic Findings No further labs or diagnostics in concert with comfort directed care. Medications Administered Current Inpatient Medications Acetaminophen (Acetaminophen 325 Mg Tab) 650 mg PO Q4H PRN PRN Reason: Pain or Fever Stop: 08/25/24 15:45 Docusate Sodium (Docusate Sodium 100 Mg Cap) 100 mg PO BID PRN PRN Reason: Constipation Stop: 08/25/24 15:45 Glycopyrrolate (Glycopyrrolate 0.2 Mg/Ml Vial) 0.4 mg IV Q4H PRN PRN Reason: Rattling Secretions or Pulm Congestion Stop: 08/26/24 14:05 Last Admin: 07/31/24 05:47 Dose: 0.4 mg Guaifenesin/Dextromethorphan (Guaifenesin/Dextrom Syrup 100mg/10mg 5ml Udc) 5 ml PO Q6H PRN PRN Reason: Cough Stop: 08/27/24 15:39 Last Admin: 07/29/24 01:13 Dose: 5 ml Hydromorphone HCl (Hydromorphone Inj 0.5 Mg/0.5 Ml Syr) 0.5 mg IV Q30M PRN PRN Reason: Pain or Respiratory Distress Stop: 08/10/24 14:05 Last Admin: 07/31/24 00:17 Dose: 0.5 mg Hydromorphone HCl (Hydromorphone Inj 1 Mg/Ml Syringe) 1 mg IV Q1H [facility] Stop: 08/14/24 10:14 Last Admin: 07/31/24 15:15 Dose: 1 mg Lorazepam (Lorazepam 2 Mg/1 Ml Vial) 1 mg IV Q4H PRN PRN Reason: Anxiety/Agitation, spasms Stop: 08/26/24 14:05 Last Admin: 07/31/24 00:18 Dose: 1 mg Metoprolol Tartrate (Metoprolol Tartrate 25 Mg Tab) 25 mg PO TID [facility] Stop: 08/27/24 13:59 Last Admin: 07/31/24 13:30 Dose: Not Given Nystatin (Nystatin Susp 500,000 U/5 Ml Udc) 5 ml PO QID [facility] Stop: 08/26/24 16:59 Last Admin: 07/31/24 12:57 Dose: Not Given Ondansetron HCl (Ondansetron Inj 2 Mg/Ml 2 Ml Vial) 4 mg IV Q4H PRN PRN Reason: Nausea &/or Vomiting Stop: 08/26/24 14:05 Polyethylene Glycol (Polyethylene (Miralax) 17 Gm Pack) 17 gm PO DAILY PRN PRN Reason: Constipation Stop: 08/25/24 15:45 PG Care Time/CCT Total # of Minutes Spent Total Time Spent with Patient: Total time spent is greater than 50% in coordination of care (as documented) at patient's floor/unit and/or counseling patient: Coding [place] [address] SUB INP/OBS CARE 2/35MIN Patient Type Established History Problem Focused Exam Problem Focused Medical Decision Making Low Complexity Diagnoses Palliative care by specialist Z51.5 Cancer related pain G89.3 Need for comfort care
--- NOTE | 2024-07-31 16:15 | Hospitalist Progress Note ---
Date of Service July 31, 2024 Assessment & Plan (1) Lung cancer, primary, with metastasis from lung to other site: Plan: Comfort care status Remains critical but stable and without any significant distress Appreciate palliative care input and recommendation Getting supportive medications Has been transferred to [facility] to continue care Prognosis is extremely poor Has been getting medications as needed to give him comfortable Increasing pain and the doses of Dilaudid will be changed to 1 mg IV every 3 hours [id number] on top of 0.5 mg as needed Below are the significant medical conditions: Acute hypoxic respiratory failure secondary to 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 Has had recent chemotherapy and the condition has been deteriorating Appreciate pulmonary input and recommendation Prognosis is extremely poor Palliative care consultation was taken and the patient is going towards comfort care only Remains critical but stable Will transfer to medical floor and continue with the comfort care Acute anemia Likely secondary to the disease process Hemoglobin dropped to 6.7 and the patient was agreeable to get blood transfusion Plan for 2 units but now it is discontinued as he chooses to be comfort care only No further blood work (2) Narrow complex tachycardia: Plan: Rapid Atrial flutter Patient is 69 year old male with PMH anxiety, recently diagnosed non-small cell lung CA involving right hilar/perihilar mass encasing right mainstem bronchus, bone metastasis, COPD, history tobacco use presented to ER with increased SOB, CP, palpitations, dizziness since yesterday Upon ER presentation today found to have pulse 200, with narrow complex tachycardia. Initially given a dose of 6 mg of adenosine and then 2 mg of adenosine with appearance of flutter waves. HR up to 200's and patient ultimately cardioverted with subsequent sinus tachycardia after cardioversion. Patient again had narrow complex tachycardia at a rate of 200 about an hour after cardioversion and was started on diltiazem drip. Currently sinus rhythm with stable BP on diltiazem drip Monitor on telemetry Troponin: 8.0 Continue diltiazem drip Hold on anticoagulation at this time with h/o hemoptysis Cardiology consult. discussed with Dr Romero. Will plan to keep on diltiazem drip for now with consideration adding oral agent tomorrow appreciate cardiology input and recommendation Will try to wean down the Cardizem drip and also give metoprolol tartrate 25 mL 3 times daily to control the heart rate He can be transferred to medical floor after weaning of Cardizem drip (3) Anxiety: (4) COPD (chronic obstructive pulmonary disease): Plan: Likely has exacerbation Antibiotics were restarted and getting nebulized bronchodilator Likely to stop current aggressive management as the patient is going towards comfort care His current deterioration of the condition is not due to sepsis and antibiotic will be discontinued (5) Pneumonia: Plan: As above (6) Pancytopenia: Plan: Chemotherapy induced pancytopenia Neutropenic precaution for now Condition has been deteriorating and going to be only for comfort care Note from the admitting physician: Per outpatient chart review: 07/13/2023 received Zometa. 07/20/24 received Alimta, carboplatin, Keytruda with plan for palliative radiation to symptomatic bone lesion 06/13/2024 PET-CT scan: hypermetabolic right paraprotein nodule SUV of 9.6. 5.4 x 4.8 cm right hilar mass narrows the distal mainstem bronchus SUV 17.5. focal subcentimeter pancreatic body mass with SUV of 8.8. Subcentimeter peripancreatic lymph node adjacent to the pancreatic head. Multiple soft tissue metastases, 1 measuring about 1 cm within the right psoas muscle with a SUV of 7.4. Multiple osseous, intramuscular and subcutaneous metastasis involving the spine, ribs, right acromial base. overall hypermetabolic right hilar mass with metastasis involving the pancreas, peripancreatic lymph node, muscle, bones. Today in ER WBC: 2.69, Hgb: 9.7, PLT: 155 Lactate: 3.0-->1.9. procalcitonin: 0.65. CTA Chest: No pulmonary embolism seen. Near obstruction of the right mainstem bronchus with secretions or tumor. Progressive tumor at the right lung with possible superimposed pneumonia. Increased small right pleural effusion. Progressive osseous metastatic disease. In ER received 2L NSS, vancomycin, cefepime MRSA swab pending Zosyn, vancomycin Gentle NSS Supplemental oxygen as needed Incentive spirometry, flutter valve formoterol, saline nebs Pulmonology consult Following with oncology, Dr Jarod Ureña. Pulmonology, Dr Hitchcock #Nausea, vomiting #Generalized Weakness Since first chemo treatment Gentle IVF Thiamine, Folic acid, multivitamin Fall precautions PT/OT eval DVT Prophylaxis SCDs for now Admit PCU Full Code as per discussion with pt Follows with Dr Renee for routine care Admission and Anticipated Discharge Date Admission Date: July 26, 2024 Subjective 07/27/2024 The patient was seen and examined in telemetry unit He remains critical with acute shortness of breath and extremely lethargy Initially did not want to communicate but later on mentioned that he has been having pain all over and he does not feel good He does not have any family members and he does not want anybody to be informed 07/28/2024 The patient was seen and examined in telemetry unit He has been feeling little better today He will be at comfort care status but cannot take his medications as long as he can take it Will transfer him to medical floor this afternoon when the heart rate is controlled without intravenous Cardizem 07/29/2024 The patient was seen and examined in telemetry unit with MedSurg status Remains stable and comfortable Minimal pain and without any increasing shortness of breath every other day 48 hours my my idea is to if normal urinating more than 48 hours I do not need 07/30/2024 The patient was seen and examined in medical floor He is complaining of some pain and the pain medicine was administered Otherwise remains critical but stable 07/31/2024 The patient was seen and examined in medical floor He was having lots of pain and was not getting pain medications at the right time Otherwise denies any shortness of breath at rest and with oxygen supply was off. Physical Exam Physical Exam: Lying in bed with acute distress due to shortness of breath and profound weakness Constitutional: + ill appearing Eyes: PERRL, conjunctivae normal, anicteric sclerae ENMT: external ear and nose normal, oropharynx normal Neck: trachea midline, no thyromegaly Respiratory: + respiratory distress Auscultation: + diminished lung sounds and + crackles ( all over) Cardiovascular: Rate/Rhythm: regular rate and regular rhythm Gastrointestinal (Abdomen): Inspection/Auscultation: + abdomen distended and normal bowel sounds Percussion/Palpation: + abdomen tender and abdomen soft Lymphatic: no cervical or axillary lymphadenopathy Results & Data Results & Data Vital Signs (Past 12 Hours) Vital Signs O2 Del Method O2 Flow Rate 07/31/24 11:53 Nasal Cannula 2 Medications Administered Current Inpatient Medications Acetaminophen (Acetaminophen 325 Mg Tab) 650 mg PO Q4H PRN PRN Reason: Pain or Fever Stop: 08/25/24 15:45 Docusate Sodium (Docusate Sodium 100 Mg Cap) 100 mg PO BID PRN PRN Reason: Constipation Stop: 08/25/24 15:45 Glycopyrrolate (Glycopyrrolate 0.2 Mg/Ml Vial) 0.4 mg IV Q4H PRN PRN Reason: Rattling Secretions or Pulm Congestion Stop: 08/26/24 14:05 Last Admin: 07/31/24 05:47 Dose: 0.4 mg Guaifenesin/Dextromethorphan (Guaifenesin/Dextrom Syrup 100mg/10mg 5ml Udc) 5 ml PO Q6H PRN PRN Reason: Cough Stop: 08/27/24 15:39 Last Admin: 07/29/24 01:13 Dose: 5 ml Hydromorphone HCl (Hydromorphone Inj 0.5 Mg/0.5 Ml Syr) 0.5 mg IV Q30M PRN PRN Reason: Pain or Respiratory Distress Stop: 08/10/24 14:05 Last Admin: 07/31/24 00:17 Dose: 0.5 mg Hydromorphone HCl (Hydromorphone Inj 1 Mg/Ml Syringe) 1 mg IV Q1H [facility] Stop: 08/14/24 10:14 Last Admin: 07/31/24 15:15 Dose: 1 mg Lorazepam (Lorazepam 2 Mg/1 Ml Vial) 1 mg IV Q4H PRN PRN Reason: Anxiety/Agitation, spasms Stop: 08/26/24 14:05 Last Admin: 07/31/24 00:18 Dose: 1 mg Metoprolol Tartrate (Metoprolol Tartrate 25 Mg Tab) 25 mg PO TID [facility] Stop: 08/27/24 13:59 Last Admin: 07/31/24 13:30 Dose: Not Given Nystatin (Nystatin Susp 500,000 U/5 Ml Udc) 5 ml PO QID [facility] Stop: 08/26/24 16:59 Last Admin: 07/31/24 12:57 Dose: Not Given Ondansetron HCl (Ondansetron Inj 2 Mg/Ml 2 Ml Vial) 4 mg IV Q4H PRN PRN Reason: Nausea &/or Vomiting Stop: 08/26/24 14:05 Polyethylene Glycol (Polyethylene (Miralax) 17 Gm Pack) 17 gm PO DAILY PRN PRN Reason: Constipation Stop: 08/25/24 15:45
[2024-08-01] MEDS ORDERED: STAT IV Infusion **Titration per Protocol STA (09:04)
[2024-08-01] MEDS ORDERED: HYDROmorphone BOLUS from BAG IV PRN (09:04)
[2024-08-01] MEDS: HYDROmorphone 100 MG/100 ML BAG IV SCH (10:17)
--- NOTE | 2024-08-01 11:34 | Palliative Care Progress Note ---
Date of Service August 01, 2024 Assessment & Plan (1) Palliative care by specialist: Plan: Palliative care will continue to follow for ongoing EOL pt care and family support. (2) Cancer related pain: (3) Need for comfort care: Plan: EOL Symptom manamgement: Pain/dyspnea/tachypnea Continue dilaudid 0.5mg IVP PRN [id number] Added dilaudid drip titrate per protocol for comfort Nausea/vomitting zofran 4mg IVP q4h PRN Agitation ativan 0.5mg IVP q4h PRN Hyperactive delirium haldol 5mg IVP q6h PRN Secretions - if repositioning not effective robinul 0.4mg IV q3h PRN atropine SL 3 drops Q1h PRN Nursing care: Discontinue all medications not directed towards comfort. Detether pt from IV tubing, monitor cables, and check vitals once per shift. Please continue HFNC and titrate down as able for patient comfort. Use medications above PRN for dyspnea/tachypnea and do not increase oxygen once titrated down. Assess q1h for pain/dyspnea and treat accordingly. Plan as above Admission and Anticipated Discharge Date Admission Date: July 26, 2024 Subjective Assessed pt at bedside, he was transitioned to [facility] [facility] on 07/27/24 and has had frequent need for comfort medications. Pt is unresponsive to verbal and gentle tactile stimuli, did not aggressively attempt to awaken in concert with comfort directed care. He appears dyspneic, increased WOB, with audible secretions pool ing in throat, and notable accessory muscle use. Respiratory rate 28BPM. no visitors at bedside. Attempt made to contact pt's mariposa/WOODYGARTH Jimenez and nephew Aston by phone, no answer general VM left. Review of Systems Review of Systems: Unobtainable due to reduced consciousness Physical Exam Physical Exam: Pt is unresponsive to verbal and gentle tactile stimuli, did not attempt to awaken in concert with comfort directed care. Constitutional: + ill appearing Eyes: PERRL, conjunctivae normal, anicteric sclerae ENMT: external ear and nose normal, oropharynx normal Neck: trachea midline, no thyromegaly Respiratory: + respiratory distress Auscultation: + diminished lung sounds and + crackles (diffuse) Cardiovascular: Rate/Rhythm: regular rate and regular rhythm Gastrointestinal (Abdomen): Inspection/Auscultation: + abdomen distended and normal bowel sounds Percussion/Palpation: + abdomen tender and abdomen soft Lymphatic: no cervical or axillary lymphadenopathy Results & Data Vital Signs (Past 12 Hours) Vital Signs O2 Del Method O2 Flow Rate 08/01/24 08:00 Nasal Cannula 2 Laboratory Results No further labs or diagnostics in concert with comfort directed care. Diagnostic Findings No further labs or diagnostics in concert with comfort directed care. Medications Administered Current Inpatient Medications Acetaminophen (Acetaminophen 325 Mg Tab) 650 mg PO Q4H PRN PRN Reason: Pain or Fever Stop: 08/25/24 15:45 Docusate Sodium (Docusate Sodium 100 Mg Cap) 100 mg PO BID PRN PRN Reason: Constipation Stop: 08/25/24 15:45 Glycopyrrolate (Glycopyrrolate 0.2 Mg/Ml Vial) 0.4 mg IV Q3H PRN PRN Reason: Rattling Secretions or Pulm Congestion Stop: 08/26/24 14:05 Guaifenesin/Dextromethorphan (Guaifenesin/Dextrom Syrup 100mg/10mg 5ml Udc) 5 ml PO Q6H PRN PRN Reason: Cough Stop: 08/27/24 15:39 Last Admin: 07/29/24 01:13 Dose: 5 ml Hydromorphone HCl (Hydromorphone Bolus From Bag) 0.5 mg IV Q15M PRN PRN Reason: Comfort Care Parameters Stop: 08/15/24 09:03 Hydromorphone HCl (Dilaudid) 100 mg in 100 mls @ 0.5 mls/hr IV .Q96H [facility]; Protocol Stop: 08/15/24 09:14 Last Admin: 08/01/24 10:17 Dose: 0.5 mg/hr, 0.5 mls/hr Lorazepam (Lorazepam 2 Mg/1 Ml Vial) 1 mg IV Q4H PRN PRN Reason: Anxiety/Agitation, spasms Stop: 08/26/24 14:05 Last Admin: 08/01/24 06:25 Dose: 1 mg Metoprolol Tartrate (Metoprolol Tartrate 25 Mg Tab) 25 mg PO TID [facility] Stop: 08/27/24 13:59 Last Admin: 08/01/24 07:07 Dose: Not Given Nystatin (Nystatin Susp 500,000 U/5 Ml Udc) 5 ml PO QID [facility] Stop: 08/26/24 16:59 Last Admin: 08/01/24 07:07 Dose: Not Given Ondansetron HCl (Ondansetron Inj 2 Mg/Ml 2 Ml Vial) 4 mg IV Q4H PRN PRN Reason: Nausea &/or Vomiting Stop: 08/26/24 14:05 Polyethylene Glycol (Polyethylene (Miralax) 17 Gm Pack) 17 gm PO DAILY PRN PRN Reason: Constipation Stop: 08/25/24 15:45 PG Care Time/CCT Total # of Minutes Spent Total Time Spent with Patient: Total time spent is greater than 50% in coordination of care (as documented) at patient's floor/unit and/or counseling patient: Coding [place] [address] SUB INP/OBS CARE 2/35MIN Patient Type Established History Expanded Problem Focused Exam Expanded Problem Focused Medical Decision Making Moderate Complexity Diagnoses Palliative care by specialist Z51.5 Cancer related pain G89.3 Need for comfort care
--- NOTE | 2024-08-01 11:54 | Hospitalist Progress Note ---
Date of Service August 01, 2024 Assessment & Plan (1) Lung cancer, primary, with metastasis from lung to other site: Plan: Comfort care status Remains critical but stable and without any significant distress Appreciate palliative care input and recommendation Getting supportive medications Has been transferred to [facility] to continue care Prognosis is extremely poor Has been getting medications as needed to give him comfortable Increasing pain and the doses of Dilaudid will be changed to 1 mg IV every 3 hours [id number] on top of 0.5 mg as needed Remains comfortable on Dilaudid drip Below are the significant medical conditions: Acute hypoxic respiratory failure secondary to 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 Has had recent chemotherapy and the condition has been deteriorating Appreciate pulmonary input and recommendation Prognosis is extremely poor Palliative care consultation was taken and the patient is going towards comfort care only Remains critical but stable Will transfer to medical floor and continue with the comfort care Acute anemia Likely secondary to the disease process Hemoglobin dropped to 6.7 and the patient was agreeable to get blood transfusion Plan for 2 units but now it is discontinued as he chooses to be comfort care only No further blood work (2) Narrow complex tachycardia: Plan: Rapid Atrial flutter Patient is 69 year old male with PMH anxiety, recently diagnosed non-small cell lung CA involving right hilar/perihilar mass encasing right mainstem bronchus, bone metastasis, COPD, history tobacco use presented to ER with increased SOB, CP, palpitations, dizziness since yesterday Upon ER presentation today found to have pulse 200, with narrow complex tachycardia. Initially given a dose of 6 mg of adenosine and then 2 mg of adenosine with appearance of flutter waves. HR up to 200's and patient ultimately cardioverted with subsequent sinus tachycardia after cardioversion. Patient again had narrow complex tachycardia at a rate of 200 about an hour after cardioversion and was started on diltiazem drip. Currently sinus rhythm with stable BP on diltiazem drip Monitor on telemetry Troponin: 8.0 Continue diltiazem drip Hold on anticoagulation at this time with h/o hemoptysis Cardiology consult. discussed with Dr Romero. Will plan to keep on diltiazem drip for now with consideration adding oral agent tomorrow appreciate cardiology input and recommendation Will try to wean down the Cardizem drip and also give metoprolol tartrate 25 mL 3 times daily to control the heart rate He can be transferred to medical floor after weaning of Cardizem drip (3) Anxiety: (4) COPD (chronic obstructive pulmonary disease): Plan: Likely has exacerbation Antibiotics were restarted and getting nebulized bronchodilator Likely to stop current aggressive management as the patient is going towards comfort care His current deterioration of the condition is not due to sepsis and antibiotic will be discontinued (5) Pneumonia: Plan: As above (6) Pancytopenia: Plan: Chemotherapy induced pancytopenia Neutropenic precaution for now Condition has been deteriorating and going to be only for comfort care Note from the admitting physician: Per outpatient chart review: 07/13/2023 received Zometa. 07/20/24 received Alimta, carboplatin, Keytruda with plan for palliative radiation to symptomatic bone lesion 06/13/2024 PET-CT scan: hypermetabolic right paraprotein nodule SUV of 9.6. 5.4 x 4.8 cm right hilar mass narrows the distal mainstem bronchus SUV 17.5. focal subcentimeter pancreatic body mass with SUV of 8.8. Subcentimeter peripancreatic lymph node adjacent to the pancreatic head. Multiple soft tissue metastases, 1 measuring about 1 cm within the right psoas muscle with a SUV of 7.4. Multiple osseous, intramuscular and subcutaneous metastasis involving the spine, ribs, right acromial base. overall hypermetabolic right hilar mass with metastasis involving the pancreas, peripancreatic lymph node, muscle, bones. Today in ER WBC: 2.69, Hgb: 9.7, PLT: 155 Lactate: 3.0-->1.9. procalcitonin: 0.65. CTA Chest: No pulmonary embolism seen. Near obstruction of the right mainstem bronchus with secretions or tumor. Progressive tumor at the right lung with possible superimposed pneumonia. Increased small right pleural effusion. Progressive osseous metastatic disease. In ER received 2L NSS, vancomycin, cefepime MRSA swab pending Zosyn, vancomycin Gentle NSS Supplemental oxygen as needed Incentive spirometry, flutter valve formoterol, saline nebs Pulmonology consult Following with oncology, Dr Jarod Ureña. Pulmonology, Dr Hitchcock #Nausea, vomiting #Generalized Weakness Since first chemo treatment Gentle IVF Thiamine, Folic acid, multivitamin Fall precautions PT/OT eval DVT Prophylaxis SCDs for now Admit PCU Full Code as per discussion with pt Follows with Dr Renee for routine care Admission and Anticipated Discharge Date Admission Date: July 26, 2024 Subjective 07/27/2024 The patient was seen and examined in telemetry unit He remains critical with acute shortness of breath and extremely lethargy Initially did not want to communicate but later on mentioned that he has been having pain all over and he does not feel good He does not have any family members and he does not want anybody to be informed 07/28/2024 The patient was seen and examined in telemetry unit He has been feeling little better today He will be at comfort care status but cannot take his medications as long as he can take it Will transfer him to medical floor this afternoon when the heart rate is controlled without intravenous Cardizem 07/29/2024 The patient was seen and examined in telemetry unit with MedSurg status Remains stable and comfortable Minimal pain and without any increasing shortness of breath every other day 48 h ours my my idea is to if normal urinating more than 48 hours I do not need 07/30/2024 The patient was seen and examined in medical floor He is complaining of some pain and the pain medicine was administered Otherwise remains critical but stable 07/31/2024 The patient was seen and examined in medical floor He was having lots of pain and was not getting pain medications at the right time Otherwise denies any shortness of breath at rest and with oxygen supply was off. 08/01/2024 The patient was seen and minimally examined Remains comfortable and minimally verbal Physical Exam Physical Exam: Remains comfortable on Dilaudid drip. Constitutional: + ill appearing Eyes: PERRL, conjunctivae normal, anicteric sclerae ENMT: external ear and nose normal, oropharynx normal Neck: trachea midline, no thyromegaly Respiratory: + respiratory distress Auscultation: + diminished lung sounds and + crackles ( all over) Cardiovascular: Rate/Rhythm: regular rate and regular rhythm Gastrointestinal (Abdomen): Inspection/Auscultation: + abdomen distended and normal bowel sounds Neurologic: minimally responsive Lymphatic: no cervical or axillary lymphadenopathy Results & Data Results & Data Vital Signs (Past 12 Hours) Vital Signs O2 Del Method O2 Flow Rate 08/01/24 08:00 Nasal Cannula 2 Medications Administered Current Inpatient Medications Acetaminophen (Acetaminophen 325 Mg Tab) 650 mg PO Q4H PRN PRN Reason: Pain or Fever Stop: 08/25/24 15:45 Docusate Sodium (Docusate Sodium 100 Mg Cap) 100 mg PO BID PRN PRN Reason: Constipation Stop: 08/25/24 15:45 Glycopyrrolate (Glycopyrrolate 0.2 Mg/Ml Vial) 0.4 mg IV Q3H PRN PRN Reason: Rattling Secretions or Pulm Congestion Stop: 08/26/24 14:05 Guaifenesin/Dextromethorphan (Guaifenesin/Dextrom Syrup 100mg/10mg 5ml Udc) 5 ml PO Q6H PRN PRN Reason: Cough Stop: 08/27/24 15:39 Last Admin: 07/29/24 01:13 Dose: 5 ml Hydromorphone HCl (Hydromorphone Bolus From Bag) 0.5 mg IV Q15M PRN PRN Reason: Comfort Care Parameters Stop: 08/15/24 09:03 Hydromorphone HCl (Dilaudid) 100 mg in 100 mls @ 0.5 mls/hr IV .Q96H [facility]; Protocol Stop: 08/15/24 09:14 Last Admin: 08/01/24 10:17 Dose: 0.5 mg/hr, 0.5 mls/hr Lorazepam (Lorazepam 2 Mg/1 Ml Vial) 1 mg IV Q4H PRN PRN Reason: Anxiety/Agitation, spasms Stop: 08/26/24 14:05 Last Admin: 08/01/24 06:25 Dose: 1 mg Metoprolol Tartrate (Metoprolol Tartrate 25 Mg Tab) 25 mg PO TID [facility] Stop: 08/27/24 13:59 Last Admin: 08/01/24 07:07 Dose: Not Given Nystatin (Nystatin Susp 500,000 U/5 Ml Udc) 5 ml PO QID [facility] Stop: 08/26/24 16:59 Last Admin: 08/01/24 07:07 Dose: Not Given Ondansetron HCl (Ondansetron Inj 2 Mg/Ml 2 Ml Vial) 4 mg IV Q4H PRN PRN Reason: Nausea &/or Vomiting Stop: 08/26/24 14:05 Polyethylene Glycol (Polyethylene (Miralax) 17 Gm Pack) 17 gm PO DAILY PRN PRN Reason: Constipation Stop: 08/25/24 15:45
[2024-08-01] MEDS: GLYCOPYRROLATE 0.2 MG/ML VIAL IV PRN (14:46)
--- NOTE | 2024-08-01 19:56 | Death Pronouncement Note ---
Date of Service August 01, 2024 Pronouncement Note Admission Date July 26, 2024 Date and Time of Date of : 08/01/24 Time of : 19:33 Additional Data Confirmation of : no pulse, no respirations, no heart sounds and pupils fixed and dilated Family: contacted Attending physician: Alber Myers MD
--- NOTE | 2024-08-02 08:24 | Discharge Summary ---
Date of Service August 02, 2024 Admission HPI Per Admitting Provider Patient is 69 year old male with PMH anxiety, recently diagnosed non-small cell lung CA involving right hilar/perihilar mass encasing right mainstem bronchus, bone metastasis, COPD, history tobacco use presented to ER with increased SOB since yesterday. States ongoing SOB for over 6 months but yesterday evening increased SOB and started with palpitations and sensation that he couldn't catch his breath and was having chest discomfort and dizziness. He reports ongoing hemoptysis and cough. Reports cough previously productive but recently dry with continued intermittent hemoptysis. Reports hemoptysis is at baseline since January. Has been on multiple rounds of antibiotics, with Augmentin 06/22/24 for 10 day course, Cefdinir 07/17/24 for14 day course, and doxycycline 07/18/24 for 10-day course. 07/13/2023 seen hematology clinic for Zometa. On 07/20/24 received Alimta, carboplatin, Keytruda with plan for palliative radiation to symptomatic bone lesions. Reports nausea, vomiting, decreased oral intake past week. Denies melena, hematochezia, hematuria. Feeling tired and weak. Ongoing back pain that he reports is controlled on morphine and prn oxycodone. Denies fever/chills, diaphoresis, REYNA, syncope, neck pain, CP, SOB, orthopnea, palpitations, cough, sore throat, choking, rhinorrhea, paresthesias, extremity edema, rashes, dysuria, urinary frequency. Reports previously smoking "6 packs per day" and smoking since age 14. Reports stopped smoking in January 2024. Denies ETOH or recreational drug use. Upon ER presentation today found to have pulse 200, with narrow complex tachycardia. Initially given a dose of 6 mg of adenosine and then 2 mg of adenosine with appearance of flutter waves. HR up to 200's and patient ultimately cardioverted with subsequent sinus tachycardia after cardioversion. Patient again had narrow complex tachycardia at a rate of 200 about an hour after cardioversion and was started on diltiazem drip. Currently sinus rhythm with stable BP. Principal Diagnosis Metastatic lung cancer, Pneumonia Discharge Data Allergies Allergy/AdvReac Type Severity Reaction Status Date / Time codeine Allergy Mild Itching Verified 07/25/24 02:01 doxycycline AdvReac Intermediate NAUSEA/VOMI Verified 07/25/24 01:56 TING Consultations 07/26/24 13:19 ED Decision to Admit Stat 07/26/24 13:52 Consult Cardiology Routine 07/26/24 15:46 Consult Pulmonology Routine 07/27/24 09:57 Consult Palliative Care Routine Ordered Studies 07/26/24 10:53 CT angio chest PE protocol Stat Hospital Course (1) Need for comfort care: Patient on comfort care. last night August 01 at 1933. Last Progress notes by : 1) Lung cancer, primary, with metastasis from lung to other site: Plan: Comfort care status Remains critical but stable and without any significant distress Appreciate palliative care input and recommendation Getting supportive medications Has been transferred to [facility] to continue care Prognosis is extremely poor Has been getting medications as needed to give him comfortable Increasing pain and the doses of Dilaudid will be changed to 1 mg IV every 3 hours [id number] on top of 0.5 mg as needed Remains comfortable on Dilaudid drip Below are the significant medical conditions: Acute hypoxic respiratory failure secondary to 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 Has had recent chemotherapy and the condition has been deteriorating Appreciate pulmonary input and recommendation Prognosis is extremely poor Palliative care consultation was taken and the patient is going towards comfort care only Remains critical but stable Will transfer to medical floor and continue with the comfort care Acute anemia Likely secondary to the disease process Hemoglobin dropped to 6.7 and the patient was agreeable to get blood transfusion Plan for 2 units but now it is discontinued as he chooses to be comfort care only No further blood work (2) Narrow complex tachycardia: Plan: Rapid Atrial flutter Patient is 69 year old male with PMH anxiety, recently diagnosed non-small cell lung CA involving right hilar/perihilar mass encasing right mainstem bronchus, bone metastasis, COPD, history tobacco use presented to ER with increased SOB, CP, palpitations, dizziness since yesterday Upon ER presentation today found to have pulse 200, with narrow complex tachycardia. Initially given a dose of 6 mg of adenosine and then 2 mg of a denosine with appearance of flutter waves. HR up to 200's and patient ultimately cardioverted with subsequent sinus tachycardia after cardioversion. Patient again had narrow complex tachycardia at a rate of 200 about an hour after cardioversion and was started on diltiazem drip. Currently sinus rhythm with stable BP on diltiazem drip Monitor on telemetry Troponin: 8.0 Continue diltiazem drip Hold on anticoagulation at this time with h/o hemoptysis Cardiology consult. discussed with Dr Romero. Will plan to keep on diltiazem drip for now with consideration adding oral agent tomorrow appreciate cardiology input and recommendation Will try to wean down the Cardizem drip and also give metoprolol tartrate 25 mL 3 times daily to control the heart rate He can be transferred to medical floor after weaning of Cardizem drip (3) Anxiety: (4) COPD (chronic obstructive pulmonary disease): Plan: Likely has exacerbation Antibiotics were restarted and getting nebulized bronchodilator Likely to stop current aggressive management as the patient is going towards comfort care His current deterioration of the condition is not due to sepsis and antibiotic will be discontinued (5) Pneumonia: Plan: As above (6) Pancytopenia: Plan: Chemotherapy induced pancytopenia Neutropenic precaution for now Condition has been deteriorating and going to be only for comfort care Note from the admitting physician: Per outpatient chart review: 07/13/2023 received Zometa. 07/20/24 received Alimta, carboplatin, Keytruda with plan for palliative radiation to symptomatic bone lesion 06/13/2024 PET-CT scan: hypermetabolic right paraprotein nodule SUV of 9.6. 5.4 x 4.8 cm right hilar mass narrows the distal mainstem bronchus SUV 17.5. focal subcentimeter pancreatic body mass with SUV of 8.8. Subcentimeter peripancreatic lymph node adjacent to the pancreatic head. Multiple soft tissue metastases, 1 m easuring about 1 cm within the right psoas muscle with a SUV of 7.4. Multiple osseous, intramuscular and subcutaneous metastasis involving the spine, ribs, right acromial base. overall hypermetabolic right hilar mass with metastasis involving the pancreas, peripancreatic lymph node, muscle, bones. Today in ER WBC: 2.69, Hgb: 9.7, PLT: 155 Lactate: 3.0-->1.9. procalcitonin: 0.65. CTA Chest: No pulmonary embolism seen. Near obstruction of the right mainstem bronchus with secretions or tumor. Progressive tumor at the right lung with possible superimposed pneumonia. Increased small right pleural effusion. Progressive osseous metastatic disease. In ER received 2L NSS, vancomycin, cefepime MRSA swab pending Zosyn, vancomycin Gentle NSS Supplemental oxygen as needed Incentive spirometry, flutter valve formoterol, saline nebs Pulmonology consult Following with oncology, Dr Jarod Ureña. Pulmonology, Dr Hitchcock #Nausea, vomiting #Generalized Weakness Since first chemo treatment Gentle IVF Thiamine, Folic acid, multivitamin Fall precautions PT/OT eval Total Time Total Time Spent Total Time Spent (In Minutes): 30minutes Discharge Plan Discharge Items Patient Disposition: Other Date/Time: 08/01/24 19:36
== END 2024-08-01 22:20 | disposition expired | DRG 180 ==
LOC: ED 10:15 → SUATTDRO 14:02 → 2S 14:02 → 3E 07-29 14:21